=== PATIENT | male | born 1975 | race Caucasian/White ===

== ENCOUNTER 2021-05-18 18:29 | Emergency (ER) | payer OTHER, SELFPAY ==
--- NOTE | ~2021-05-18 | CT_ITS ---
EXAMINATION: CTA chest PE protocol DATE: 05/19/2021 06:36 INDICATION: Dyspnea. TECHNIQUE: Computed tomography angiography (CTA) of the chest was performed with 100 mL Omnipaque-350 intravenous contrast timed to evaluate the pulmonary arteries. Coronal maximum intensity projection 3D-reconstructions were created by the technologist. Automated exposure control and iterative reconst ruction technique were employed. The dose-length product was 816.86 mGy-cm. COMPARISON: None. FINDINGS: There are centrilobular groundglass nodules in right upper lobe. There is mild atelectasis in the lower lobes. No pleural effusion. The heart size is normal. No pericardial effusion. There is no pulmonary embolus. There is a 16 x 15 mm paraesophageal lymph node. There is mild thoracic spondyl osis. IMPRESSION: 1. No pulmonary embolus. 2. Centrilobular groundglass nodules in right lung upper lobe, consistent with pneumonia versus infla mmation. 3. Enlarged paraesophageal lymph node, likely reactive. Reviewed, dictated and finalized at location A. OPERATOR IMPRESSION: 1. No pulmonary embolus. 2. Centrilobular groundglass nodules in right lung upper lobe, consistent with pneumonia versus inflammation. 3. Enlarged paraesophageal lymph node, likely reactive.
--- NOTE | 2021-05-18 18:39 | PC.NURSE ---
Pt to the intake desk and states I have to go put gas in my car, I will be back
[2021-05-18 19:30] VITALS: BP 157/98; PULSE 83; RESP 20; TEMP 36.9; O2SAT 98
--- NOTE | 2021-05-19 04:13 | ECG_ITS ---
Measurements Intervals [place] Rate: 62 P: 50 WV: 135 QRS: 66 QRSD: 110 T: -11 QT: 395 QTc: 402 Interpretive Statements SINUS RHYTHM BORDERLINE ST-T WAVE ABNORMALITY- INFERIOR LEADS BORDERLINE ECG Electronically Signed On 05-19-2021 8:00:15 [employer] by Kyle Mondragon D.O.
[2021-05-19 04:34] LABS: Basophils Percent Auto 0.4 % (0.2-1.2); Eosinophils Absolute Auto 0.2 K/mm3 (0-0.3); Eosinophils Percent Auto 2.9 % (0-4.4); Hematocrit 46.2 % (42.0-52.0); Hemoglobin 15.8 g/dL (14.0-18.0); Immature Granulocyte Absolute 0.02 K/mm3 (0.00-0.031); Immature Granulocyte Percent A 0.2 % (0-0.5); Lymphocytes Absolute Auto 2.83 K/mm3 (0.9-3.2); Lymphocytes Percent Auto 33.7 % (18.3-44.2); Mean Corpuscular HGB Conc 34.2 g/dl (32-36); Mean Corpuscular Hemoglobin 31.1 pg (26-34); Mean Corpuscular Volume 90.9 fl (80-100); Mean Platelet Volume 9.7 fl (7.4-10.4); Monocytes Absolute Auto 0.7 K/mm3 (0.1-0.6); Neutrophils Absolute Auto 4.6 K/mm3 (1.3-6.7); Neutrophils Percent Auto 54.8 % (45.5-73.1); Platelet Count Result 268 k/mm3 (150-375); Red Blood Count 5.08 M/mm3 (4.6-6.20); Red Cell Distribution Width 12.4 % (11.5-14.5); White Blood Count 8.4 K/mm3 (4.5-10.0)
[2021-05-19 04:44] LABS: INR 1.1; Prothrombin Time 13.9 Seconds (11.1-14.7)
[2021-05-19 04:45] LABS: Partial Thromboplastin Time 35.2 SECONDS (22.3-36.8)
[2021-05-19 04:49] LABS: Alanine Aminotransferase 35 U/L (4-50); Albumin Level 4.2 g/dL (3.5-5.1); Alkaline Phosphatase 65 U/L (38-126); Anion Gap 3 mmol/L (8-16); Aspartate Amino Transferase 42 U/L (17-59); Bilirubin,Total 0.6 mg/dL (0.2-1.3); Blood Urea Nitrogen 9 mg/dL (9-20); Calcium 8.5 mg/dL (8.4-10.2); Carbon Dioxide 27 mmol/L (22-30); Chloride 106 mmol/L (98-107); Estimated CRCL calculation 137 ml/min; Estimated Glomerular Filt Rate > 60; Glucose 99 mg/dL (65-110); Magnesium 1.8 mg/dL (1.6-2.3); Sodium 136 mmol/L (137-145)
[2021-05-19 04:59] LABS: NT Pro B Type Natriuretic Pept 24 pg/mL (5-100); Troponin I < 0.012 ng/mL (0.000-0.034)
[2021-05-19] MEDS: ALBUTEROL SULFATE (*SP) INHALER 2 PUFF INHALATION (05:00)
[2021-05-19] MEDS: HYDROcodone/acetaminophen (*CRX) 5-325 MG TABLET 1 TAB PO (05:08)
--- NOTE | 2021-05-19 05:15 | ED.GENADULT ---
HPI - General Adult General Chief complaint: Upper Respiratory Infection Stated complaint: cough, congestion, fatigue Related Data Home Medications Medication Instructions Recorded Confirmed hydrocodone 10 mg-acetaminophen 1 tablet PO Q6H PRN 08/25/20 03/08/21 325 mg tablet rivaroxaban 20 mg tablet 20 mg PO DAILY 08/25/20 03/08/21 Allergies Allergy/AdvReac Type Severity Reaction Status Date / Time No Known Allergies Allergy Verified 03/08/21 13:12 [facility] Social History Social History Social History: vape Smoking status: Former smoker Alcohol intake: never Course Vital Signs Vital signs: Vital Signs Temperature 36.9 C 05/18/21 19:30 Pulse Rate 83 05/18/21 19:30 Respiratory Rate 20 05/18/21 19:30 Blood Pressure 157/98 H 05/18/21 19:30 Pulse Oximetry 98 05/18/21 19:30 Temperature 36.9 C 05/18/21 19:30 Pulse Rate 83 05/18/21 19:30 Respiratory Rate 20 05/18/21 19:30 Blood Pressure 157/98 H 05/18/21 19:30 Pulse Oximetry 98 05/18/21 19:30 Medical Decision Making Vital Signs Vital Signs: Vital Signs Temperature 36.9 C 05/18/21 19:30 Pulse Rate 83 05/18/21 19:30 Respiratory Rate 20 05/18/21 19:30 Blood Pressure 157/98 H 05/18/21 19:30 Pulse Oximetry 98 05/18/21 19:30 Temperature 36.9 C 05/18/21 19:30 Pulse Rate 83 05/18/21 19:30 Respiratory Rate 20 05/18/21 19:30 Blood Pressure 157/98 H 05/18/21 19:30 Pulse Oximetry 98 05/18/21 19:30 Lab Data Result diagrams: 05/19/21 04:28 05/19/21 04:28 Labs: Lab Results 05/19/21 05/19/21 05/19/21 Range/Units 04:28 04:28 04:28 WBC 8.4 (4.5-10.0) K/mm3 RBC 5.08 (4.6-6.20) M/mm3 Hgb 15.8 (14.0-18.0) g/dL Hct 46.2 (42.0-52.0) % MCV 90.9 (80-100) fl MCH 31.1 (26-34) pg MCHC 34.2 (32-36) g/dl RDW 12.4 (11.5-14.5) % Plt Count 268 (150-375) k/mm3 MPV 9.7 (7.4-10.4) fl Immature Gran % (Auto) 0.2 (0-0.5) % Neut % (Auto) 54.8 (45.5-73.1) % Lymph % (Auto) 33.7 (18.3-44.2) % [place] % (Auto) 8.0 (2.6-8.5) % Eos % (Auto) 2.9 (0-4.4) % Baso % (Auto) 0.4 (0.2-1.2) % Lymph # (Auto) 2.83 (0.9-3.2) K/mm3 [place] # (Auto) 0.7 H (0.1-0.6) K/mm3 Eos # (Auto) 0.2 (0-0.3) K/mm3 Baso # (Auto) 0.0 (0.0-0.1) K/mm3 Abs Immat Gran (auto) 0.02 (0.00-0.031) K/mm3 Absolute Neuts (auto) 4.6 (1.3-6.7) K/mm3 Absolute Nucleated RBC 0.0 (0.0-0.012) K/mm3 Nucleated RBC % 0.0 (0.0-0.2) % PT 13.9 (11.1-14.7) Seconds INR 1.1 APTT 35.2 (22.3-36.8) SECONDS Sodium 136 L (137-145) mmol/L Potassium 4.0 (3.4-5.0) mmol/L Chloride 106 (98-107) mmol/L Carbon Dioxide 27 (22-30) mmol/L Anion Gap 3 L (8-16) mmol/L BUN 9 (9-20) mg/dL Creatinine 0.70 (0.7-1.3) mg/dL Estim Creat Clear Calc 137 ml/min Estimated GFR > 60 (59 - ) Glucose 99 (65-110) mg/dL Lactic Acid (0.7-2.1) mmol/L Calcium 8.5 (8.4-10.2) mg/dL Magnesium 1.8 (1.6-2.3) mg/dL Total Bilirubin 0.6 (0.2-1.3) mg/dL AST 42 (17-59) U/L ALT 35 (4-50) U/L Alkaline Phosphatase 65 (38-126) U/L Troponin I < 0.012 (0.000-0.034) ng/mL NT-Pro-B Natriuret Pep 24 (5-100) pg/mL Total Protein 7.0 (6.3-8.2) g/dL Albumin 4.2 (3.5-5.1) g/dL SARS-CoV-2 RNA (RT-PCR) 05/19/21 05/19/21 Range/Units 04:28 04:41 WBC (4.5-10.0) K/mm3 RBC (4.6-6.20) M/mm3 Hgb (14.0-18.0) g/dL Hct (42.0-52.0) % MCV (80-100) fl MCH (26-34) pg MCHC (32-36) g/dl RDW (11.5-14.5) % Plt Count (150-375) k/mm3 MPV (7.4-10.4) fl Immature Gran % (Auto) (0-0.5) % Neut % (Auto) (45.5-73.1) % Lymph % (Auto) (18.3-44.2) % [place] % (Auto) (2.6-8.5) % Eos % (Auto) (0-4.4) % Baso % (Auto) (0.2-1.2) % Lymph # (Auto) (0.9-3.2) K/mm3 Mo
[2021-05-19 05:22] LABS: SARS-CoV-2 RNA PCR Negative
== END 2021-05-19 09:09 | disposition home or self-care (01) ==
PROVIDERS: Emergency Provider Emergency Medicine; PCP Internal Medicine Infectious Disease
DX: J18.9 Pneumonia, unspecified organism (principal); Z20.822 Contact with and (suspected) exposure to COVID-19; Z86.711 Personal history of pulmonary embolism; F17.290 Nicotine dependence, other tobacco product, uncomplicated
CPT/HCPCS: 36415; 71275; 80053; 83605; 83735; 83880; 84484; 85025; 85610; 85730; 93005; 99284; A9270; C9803; Q9967; U0003; U0005

== ENCOUNTER 2021-06-22 15:06 | Outpatient (CLI) | payer OTHER, SELFPAY ==
[2021-06-27 14:16] LABS: Alpha-1-Antitrypsin, QN 141 mg/dL (83-199)
== END 2021-06-22 15:07 | disposition home or self-care (01) ==
LOC: ANHLAB 15:10
PROVIDERS: PCP Internal Medicine Infectious Disease; Visit Provider Internal Medicine Critical Care Medicine
DX: R06.02 Shortness of breath (principal); Z77.120 Contact with and (suspected) exposure to mold (toxic); Z87.891 Personal history of nicotine dependence
CPT/HCPCS: 36415; 82103; 82104; 82785; 86331; 86606; 86609

== ENCOUNTER 2022-08-18 16:23 | Emergency (ER) | payer OTHER, SELFPAY ==
[2022-08-18 16:41] VITALS: BP 155/94; PULSE 88; RESP 18; TEMP 37.1; O2SAT 98
--- NOTE | 2022-08-18 18:00 | ED.EXTPRO ---
HPI - Extremity Problem General Chief complaint: Extremity Problem,Nontraumatic Stated complaint: right thumb pain, left shoulder pain Time Seen by Provider: 08/18/22 17:23 History of Present Illness HPI Narrative: 46-year-old male presented to the ED for evaluation of right thumb pain. Patient suspects he has tendinitis of the right thumb. Patient does report pain was worsened with using his phone. Patient denies any specific incident of injury. Patient denies any swelling or fevers Related Data Home Medications Medication Instructions Recorded Confirmed hydrocodone 10 mg-acetaminophen 1 tablet PO Q6H PRN 08/25/20 09/10/21 325 mg tablet rivaroxaban 20 mg tablet (Xarelto) 20 mg PO DAILY 08/25/20 09/10/21 B-complex with vitamin C 1 tablet PO DAILY 06/22/21 09/10/21 [id number]-3-KPV-sfhxujtj-czrhnvrs-ygxcfog-bromelain-herbal cap PO 06/22/21 09/10/21 1,400 mg capsule desvenlafaxine succinate 100 mg 100 mg PO DAILY 06/22/21 09/10/21 tablet,extended release 24 hr (Pristiq) lisdexamfetamine 60 mg capsule 60 mg PO DAILY 06/22/21 09/10/21 (Vyvanse) testosterone enanthate 50 mg/0.5 50 mg subcut WEEKLY 06/22/21 09/10/21 mL subcutaneous auto-injector clonazepam 1 mg tablet 1 mg PO BID 09/10/21 09/10/21 Allergies Allergy/AdvReac Type Severity Reaction Status Date / Time No Known Allergies Allergy Verified 08/18/22 17:21 Review of Systems Review of Systems: All systems reviewed & are unremarkable except as noted in HPI and below PMFSH Social History Social History Social History: vape Smoking status: Former smoker (quit 7 years ago, vapes instead) Alcohol intake: never Exam Narrative: APPEARANCE: Well appearing, no pain, no distress, well-nourished. HEAD: normocephalic, atraumatic. EYES: PERRLA/EOMI, conjunctivae clear. NOSE: Normal no drainage RESPIRATORY: Airway patent, respirations nonlabored. Clear to auscultation bilaterally, no rales, rhonchi, wheezing. CARDIOVASCULAR: Regular rate and rhythm without murmurs rubs or gallops. ABDOMINAL: Soft, nontender, nondistended, normal bowel sounds MUSCULOSKELETAL: Moves all extremities. Tenderness over right thumb with flexion. No erythema or swelling. NEURO: Alert. Cranial nerves II through XII intact. Grossly intact SKIN: Warm, dry. Normal Color Course Course Emergency Course: 46-year-old male with right thumb pain. Suspect tendinitis of the right thumb. Patient was educated on treatment for home. No concern for tenosynovitis or an infectious process. All questions and concerns were addressed. Patient was comfortable with the plan for symptomatic treatment and close follow-up with his primary care physician. Vital Signs Vital signs: Vital Signs Temperature 98.7 F 08/18/22 16:41 Pulse Rate 88 08/18/22 16:41 Respiratory Rate 18 08/18/22 16:41 Blood Pressure 155/94 H 08/18/22 16:41 Pulse Oximetry 98 08/18/22 16:41 Oxygen Delivery Room Air 08/18/22 16:41 Temperature 98.7 F 08/18/22 16:41 Pulse Rate 80 08/18/22 18:17 Respiratory Rate 16 08/18/22 18:17 Blood Pressure 155/94 H 08/18/22 16:41 Pulse Oximetry 98 08/18/22 18:17 Oxygen Delivery Room Air 08/18/22 16:41 Discharge Plan Discharge Clinical Impression: Tendinitis of thumb Patient Disposition: Home, Self-Care Condition: Stable Instructions: Antibiotic Form, Tendinitis (ED) Additional Instructions: Limit repetitive motion using of the right thumb. Thumb spica splint as needed for comfort. Have close follow-up with your pain management team. If you have any worsening symptoms please call or return to the emergency department. Prescriptions: No Action hydrocodone-acetaminophen 10-325 mg tablet 1 tablet PO Q6H PRN Xarelto 20 mg tablet 20 mg PO DAILY Rx Instructions: must administer with evening meal Vyvanse 60 mg capsule 60 mg PO DAILY desvenlaf
[2022-08-18 18:17] VITALS: PULSE 80; RESP 16; O2SAT 98
== END 2022-08-18 18:18 | disposition home or self-care (01) ==
PROVIDERS: Emergency Provider Emergency Medicine; PCP Internal Medicine Infectious Disease
DX: M77.9 Enthesopathy, unspecified (principal)
CPT/HCPCS: 99281

== ENCOUNTER 2023-11-21 17:18 | Emergency (ER) | payer OTHER, SELFPAY ==
[2023-11-21 17:21] VITALS: BP 136/84; PULSE 98; RESP 18; TEMP 36.6; O2SAT 100
--- NOTE | 2023-11-21 17:23 | ED.GENADULT ---
HPI - General Adult General Chief complaint: Nausea/Vomiting/Diarrhea Stated complaint: N/V/D Time Seen by Provider: 11/21/23 17:23 patient presents with n/v/d that started 1 month ago. patient states he has been having fevers and body aches also. patient states he just doesn't feel good. no other complaints. PE: A&OX3, BS non-labor, ABD pain to center of abdomen with palpation, moving all extremities Related Data Home Medications Medication Instructions Recorded Confirmed hydrocodone 10 mg-acetaminophen 1 tablet PO Q6H PRN 08/25/20 09/10/21 325 mg tablet rivaroxaban 20 mg tablet (Xarelto) 20 mg PO DAILY 08/25/20 09/10/21 B-complex with vitamin C 1 tablet PO DAILY 06/22/21 09/10/21 [id number]-9-RTG-faesdbup-stgoynjp-xzrcfkn-bromelain-herbal cap PO 06/22/21 09/10/21 1,400 mg capsule desvenlafaxine succinate 100 mg 100 mg PO DAILY 06/22/21 09/10/21 tablet,extended release 24 hr (Pristiq) lisdexamfetamine 60 mg capsule 60 mg PO DAILY 06/22/21 09/10/21 (Vyvanse) testosterone enanthate 50 mg/0.5 50 mg subcut WEEKLY 06/22/21 09/10/21 mL subcutaneous auto-injector clonazepam 1 mg tablet 1 mg PO BID 09/10/21 09/10/21 semaglutide (weight loss) 0.25 0.25 mg subcut WEEKLY 10/14/23 mg/0.5 mL subcutaneous pen injector (Wegovy) Allergies Allergy/AdvReac Type Severity Reaction Status Date / Time No Known Allergies Allergy Verified 11/21/23 17:28 [facility] Social History Social History Social History: vape Smoking status: Former smoker (quit 7 years ago, vapes instead) Alcohol intake: never Course Vital Signs Vital signs: Vital Signs Temperature 36.6 C 11/21/23 17:21 Pulse Rate 98 11/21/23 17:21 Respiratory Rate 18 11/21/23 17:21 Blood Pressure 136/84 11/21/23 17:21 Pulse Oximetry 100 11/21/23 17:21 Oxygen Delivery Room Air 11/21/23 17:21 Temperature 36.6 C 11/21/23 17:21 Pulse Rate 98 11/21/23 17:21 Respiratory Rate 18 11/21/23 17:21 Blood Pressure 136/84 11/21/23 17:21 Pulse Oximetry 100 11/21/23 17:21 Oxygen Delivery Room Air 11/21/23 17:21 Medical Decision Making Vital Signs Vital Signs: Vital Signs Temperature 36.6 C 11/21/23 17:21 Pulse Rate 98 11/21/23 17:21 Respiratory Rate 18 11/21/23 17:21 Blood Pressure 136/84 11/21/23 17:21 Pulse Oximetry 100 11/21/23 17:21 Oxygen Delivery Room Air 11/21/23 17:21 Temperature 36.6 C 11/21/23 17:21 Pulse Rate 98 11/21/23 17:21 Respiratory Rate 18 11/21/23 17:21 Blood Pressure 136/84 11/21/23 17:21 Pulse Oximetry 100 11/21/23 17:21 Oxygen Delivery Room Air 11/21/23 17:21 Lab Data 11/21/23 17:29 11/21/23 17:29 Labs: Lab Results 11/21/23 11/21/23 11/21/23 Range/Units 17:29 17:39 17:47 WBC 7.3 (4.5-10.0) K/mm3 RBC 5.03 (4.6-6.20) M/mm3 Hgb 14.9 (14.0-18.0) g/dL Hct 44.0 (42.0-52.0) % MCV 87.5 (80-100) fl MCH 29.6 (26-34) pg MCHC 33.9 (32-36) g/dl RDW 12.4 (11.5-14.5) % Plt Count 244 (150-375) k/mm3 MPV 9.6 (7.4-10.4) fl Immature Gran % (Auto) 0.1 (0-0.5) % Neut % (Auto) 52.6 (45.5-73.1) % Lymph % (Auto) 36.2 (18.3-44.2) % [place] % (Auto) 8.6 H (2.6-8.5) % Eos % (Auto) 2.1 (0-4.4) % Baso % (Auto) 0.4 (0.2-1.2) % Lymph # (Auto) 2.64 (0.9-3.2) K/mm3 [place] # (Auto) 0.6 (0.1-0.6) K/mm3 Eos # (Auto) 0.2 (0-0.3) K/mm3 Baso # (Auto) 0.0 (0.0-0.1) K/mm3 Abs Immat Gran (auto) 0.01 (0.00-0.031) K/mm3 Absolute Neuts (auto) 3.8 (1.3-6.7) K/mm3 Absolute Nucleated RBC 0.000 (0.0-0.012) K/mm3 Nucleated RBC % 0.0 (0.0-0.2) % Sodium 138 (137-145) mmol/L Potassium 4.0 (3.4-5.0) mmol/L Chloride 98 (98-107) mmol/L Carbon Dioxide 30 (22-30) mmol/L Anion Gap 10 (4-12) mmol/L BUN 14 D (9-20) mg/dL Creatinine 0.90 (0.7-1.3) mg
[2023-11-21 17:41] LABS: Basophils Percent Auto 0.4 % (0.2-1.2); Eosinophils Absolute Auto 0.2 K/mm3 (0-0.3); Eosinophils Percent Auto 2.1 % (0-4.4); Hemoglobin 14.9 g/dL (14.0-18.0); Immature Granulocyte Absolute 0.01 K/mm3 (0.00-0.031); Immature Granulocyte Percent A 0.1 % (0-0.5); Lymphocytes Absolute Auto 2.64 K/mm3 (0.9-3.2); Lymphocytes Percent Auto 36.2 % (18.3-44.2); Mean Corpuscular HGB Conc 33.9 g/dl (32-36); Mean Corpuscular Hemoglobin 29.6 pg (26-34); Mean Corpuscular Volume 87.5 fl (80-100); Mean Platelet Volume 9.6 fl (7.4-10.4); Monocytes Absolute Auto 0.6 K/mm3 (0.1-0.6); Monocytes Percent Auto 8.6 % (2.6-8.5); Neutrophils Absolute Auto 3.8 K/mm3 (1.3-6.7); Neutrophils Percent Auto 52.6 % (45.5-73.1); Platelet Count Result 244 k/mm3 (150-375); Red Blood Count 5.03 M/mm3 (4.6-6.20); Red Cell Distribution Width 12.4 % (11.5-14.5); White Blood Count 7.3 K/mm3 (4.5-10.0)
[2023-11-21 17:59] LABS: Add Urine Microscopic? NO; Appearance Urine Clear (Clear); Bilirubin Urine Negative (Negative); Blood Urine Negative (Negative); Color Urine Yellow (Yellow); Glucose Urine UA Negative (Negative); Ketones Urine Negative (Negative); Leukocyte Esterase Ur Negative LEU/UL (Negative); Nitrate Urine Negative (Negative); Protein Urine Negative (Negative); Specific Grav Ur 1.013 (1.001-1.035); Urobilinogen Urine 0.2 mg/dL (<2.0)
[2023-11-21 18:00] LABS: Lactic Acid Reflex 0.8 mmol/L (0.7-2.0)
[2023-11-21 18:01] LABS: Alanine Aminotransferase 24 U/L (6-50); Albumin Level 4.6 g/dL (3.5-5.1); Alkaline Phosphatase 69 U/L (38-126); Anion Gap 10 mmol/L (4-12); Aspartate Amino Transferase 36 U/L (17-59); Bilirubin,Total 0.7 mg/dL (0.2-1.3); Blood Urea Nitrogen 14 mg/dL (9-20); Calcium 9.3 mg/dL (8.4-10.2); Carbon Dioxide 30 mmol/L (22-30); Chloride 98 mmol/L (98-107); Estimated CRCL calculation 100 ml/min; Estimated Glomerular Filt Rate > 60; Glucose 102 mg/dL (65-110); Lipase 410 U/L (23-300); Sodium 138 mmol/L (137-145)
[2023-11-21 18:23] LABS: Influenza A QL RT-PCR Negative (Negative); Influenza B QL RT-PCR Negative (Negative); SARS-CoV-2 RNA PCR Negative (Negative)
== END 2023-11-21 17:52 | disposition left against medical advice (07) ==
PROVIDERS: Emergency Provider Nurse Practitioner Family; PCP Internal Medicine Infectious Disease
DX: R11.2 Nausea with vomiting, unspecified (principal); Z20.822 Contact with and (suspected) exposure to COVID-19; F17.290 Nicotine dependence, other tobacco product, uncomplicated
CPT/HCPCS: 36415; 80053; 81003; 83605; 83690; 85025; 87636; 99283

== ENCOUNTER 2023-11-22 15:23 | Emergency (ER) | payer OTHER, SELFPAY ==
[2023-11-22 15:24] VITALS: BP 131/84; PULSE 86; RESP 16; TEMP 36.8; O2SAT 100
[2023-11-22 16:04] LABS: Basophils Percent Auto 0.5 % (0.2-1.2); Eosinophils Absolute Auto 0.2 K/mm3 (0-0.3); Eosinophils Percent Auto 2.4 % (0-4.4); Hematocrit 45.3 % (42.0-52.0); Hemoglobin 15.7 g/dL (14.0-18.0); Immature Granulocyte Absolute 0.01 K/mm3 (0.00-0.031); Immature Granulocyte Percent A 0.2 % (0-0.5); Lymphocytes Absolute Auto 1.82 K/mm3 (0.9-3.2); Lymphocytes Percent Auto 29.4 % (18.3-44.2); Mean Corpuscular HGB Conc 34.7 g/dl (32-36); Mean Corpuscular Hemoglobin 30.2 pg (26-34); Mean Corpuscular Volume 87.1 fl (80-100); Mean Platelet Volume 9.8 fl (7.4-10.4); Monocytes Absolute Auto 0.5 K/mm3 (0.1-0.6); Monocytes Percent Auto 7.6 % (2.6-8.5); Neutrophils Absolute Auto 3.7 K/mm3 (1.3-6.7); Neutrophils Percent Auto 59.9 % (45.5-73.1); Platelet Count Result 251 k/mm3 (150-375); Red Cell Distribution Width 12.4 % (11.5-14.5); White Blood Count 6.2 K/mm3 (4.5-10.0)
[2023-11-22 16:22] LABS: Alanine Aminotransferase 24 U/L (6-50); Albumin Level 4.8 g/dL (3.5-5.1); Alkaline Phosphatase 68 U/L (38-126); Anion Gap 9 mmol/L (4-12); Aspartate Amino Transferase 30 U/L (17-59); Bilirubin,Total 0.6 mg/dL (0.2-1.3); Blood Urea Nitrogen 13 mg/dL (9-20); Calcium 9.3 mg/dL (8.4-10.2); Carbon Dioxide 30 mmol/L (22-30); Chloride 101 mmol/L (98-107); Estimated CRCL calculation 112 ml/min; Estimated Glomerular Filt Rate > 60; Glucose 95 mg/dL (65-110); Lipase 142 U/L (23-300); Potassium 4.5 mmol/L (3.4-5.0); Sodium 140 mmol/L (137-145)
--- NOTE | 2023-11-22 17:07 | ED.ABDPAIN ---
HPI - Abdominal Pain General Chief Complaint: Abdominal Pain Stated Complaint: abd pain Time Seen by Provider: 11/22/23 16:28 History of Present Illness HPI narrative: Patient is a 48-year-old male presenting with abdominal pain. Patient states that he has been having diffuse abdominal pain for about the last month. Associated with nausea and intermittent vomiting. States that he has intermittent constipation and diarrhea. States that he is currently on his 3rd month of wegovy and he is concerned that it is related to this. He also has body aches and muscle cramps in his legs at night. No chest pain or shortness of breath. No fevers or chills. No dysuria hematuria. Related Data Home Medications Medication Instructions Recorded Confirmed hydrocodone 10 mg-acetaminophen 1 tablet PO Q6H PRN 08/25/20 09/10/21 325 mg tablet rivaroxaban 20 mg tablet (Xarelto) 20 mg PO DAILY 08/25/20 09/10/21 B-complex with vitamin C 1 tablet PO DAILY 06/22/21 09/10/21 [id number]-SLX-plbqmoke-wnbuxqqx-pjimlrk-bromelain-herbal cap PO 06/22/21 09/10/21 1,400 mg capsule desvenlafaxine succinate 100 mg 100 mg PO DAILY 06/22/21 09/10/21 tablet,extended release 24 hr (Pristiq) lisdexamfetamine 60 mg capsule 60 mg PO DAILY 06/22/21 09/10/21 (Vyvanse) testosterone enanthate 50 mg/0.5 50 mg subcut WEEKLY 06/22/21 09/10/21 mL subcutaneous auto-injector clonazepam 1 mg tablet 1 mg PO BID 09/10/21 09/10/21 semaglutide (weight loss) 0.25 0.25 mg subcut WEEKLY 10/14/23 mg/0.5 mL subcutaneous pen injector (Wegovy) Allergies Allergy/AdvReac Type Severity Reaction Status Date / Time No Known Allergies Allergy Verified 11/21/23 17:28 Review of Systems Review of Systems: All systems reviewed & are unremarkable except as noted in HPI and below PMFSH Social History Social History Social History: vape Smoking status: Former smoker (quit 7 years ago, vapes instead) Alcohol intake: never Exam Narrative: GENERAL: Well-appearing, in no acute distress, pleasant cooperative HEAD: Normocephalic, atraumatic. EYES: PERRLA and EOMI. ENT: Mucous membranes moist. NECK: Supple. CHEST: Clear to auscultation. No respiratory distress. HEART: Regular rate and rhythm ABDOMEN: Soft, nontender, nondistended EXTREMITIES: Normal range of motion. SKIN: Warm, dry, no rash. NEURO: No focal deficits. Alert and oriented x3. PSYCH: Normal mood and affect. Course Vital Signs Vital signs: Vital Signs Temperature 98.3 F 11/22/23 15:24 Pulse Rate 86 11/22/23 15:24 Respiratory Rate 16 11/22/23 15:24 Blood Pressure 131/84 11/22/23 15:24 Pulse Oximetry 100 11/22/23 15:24 Oxygen Delivery Room Air 11/22/23 15:24 Temperature 97.8 F 11/22/23 19:13 Pulse Rate 86 11/22/23 19:13 Respiratory Rate 16 11/22/23 19:13 Blood Pressure 120/76 11/22/23 19:13 Pulse Oximetry 98 11/22/23 19:13 Oxygen Delivery Room Air 11/22/23 15:24 MDM - Abdominal Pain MDM Narrative Medical decision making narrative: 48-year-old male presenting with intermittent abdominal pain, nausea, vomiting, diarrhea, constipation for the last month in the setting of wegovy use. Vitals within normal limits. Exam remarkable for the above. Abdomen is soft and benign. Do not feel imaging is warranted at this time. Blood work is unremarkable. Normal lipase. Patient with improvement in his nausea following IV Zofran and fluids. I am concerned that the symptoms are related to his wegovy use. Advised that he follow-up closely with the prescribing provider. Will send in for some Zofran for him. Appropriate return precautions given. Patient is agreeable this plan. Discharged in stable condition. Differential Diagnosis Differential diagnosis: Likely other (Diffuse abdominal pain, nausea vomiting, diarrhea, constipation) Medical Records Attestation: I reviewed the patient's medical
[2023-11-22] MEDS: SODIUM CHLORIDE 0.9% IV 1,000 ML 999 ML IV CONT (17:17)
[2023-11-22] MEDS: ONDANSETRON INJ 4 MG/2 ML VIAL IV PUSH (17:17)
[2023-11-22] MEDS: KETOROLAC 15 MG/ML VIAL (*BKC) IV PUSH (17:17)
[2023-11-22 17:42] LABS: Creatine Kinase 160 U/L (55-170); Magnesium 1.9 mg/dL (1.6-2.3)
[2023-11-22 19:13] VITALS: BP 120/76; PULSE 86; RESP 16; TEMP 36.6; O2SAT 98
== END 2023-11-22 19:14 | disposition home or self-care (01) ==
PROVIDERS: Emergency Medicine; Emergency Provider Emergency Medicine
DX: R10.84 Generalized abdominal pain (principal); R11.2 Nausea with vomiting, unspecified; F17.290 Nicotine dependence, other tobacco product, uncomplicated; Z79.01 Long term (current) use of anticoagulants; Z79.85 Long-term (current) use of injectable non-insulin antidiabetic drugs; Z79.899 Other long term (current) drug therapy
CPT/HCPCS: 36415; 80053; 82550; 83690; 83735; 85025; 96361; 96374; 96375; 99284; J1885; J2405; J7030

== ENCOUNTER 2024-05-19 20:25 | Emergency (ER) | payer OTHER, SELFPAY ==
--- OUTSIDE RECORDS SUMMARY | 2024-05-19 20:27 | XMS_ITS | Data Portability ---
Author Organization [facility] [address], Main Office Address [address] [place] [address] Assessment No assessment recorded. Plan of Treatment Reminders Order Date Submit Date Provider Last Modified By Organization Details Last Modified Time Details Appointments None recorded . Lab urinalys is, dipstick 2022 023 [email or web address] [facility] [place], [address] [place] [address], [address], [place], [address], 3 11:22:15 CBC 2022 023 [facility] (Lab), [address] [place], [address], 3 14:17:43 CMP, serum or plasma 2022 023 [facility] (Lab), [address] [place], [address], 3 14:17:43 PSA, total, serum or plasma 2022 023 [email or web address] [facility] (Lab), [address] [place], [address], 4 12:41:31 testoste matthew, free + total, serum 2022 023 [facility] (Lab), [address] [place], [address], 3 13:23:36 estradio l, serum 2022 023 [facility] (Lab), [address] [place] [address], [place], [address], 13:23:37 Referral None recorded . Procedures None recorded . Surgeries None recorded . Imaging US, bladder 2022 023 [email or web address] [facility], [address] [place] [address], [address], 11:25:38 Medication Orders None recorded . Patient TargetsNo targets recorded. Patient InstructionsNo instructions recorded. Reason for Referral None Reported. Results Created Date Observation Date Name Description Value Unit Range Abnormal Flag Note LastModifiedBy Organization Detail LastModifiedTime 03/08/2003/08/2021 urina lysis , dipst ick Leukocytes (reference range: negative sesar/? ? ?l) Negati ve Not Available [address], [address], 03/08/2021 11:19:45 03/08/2003/08/2021 urina lysis , dipst ick Nitrite (reference rage: negative mg/dl) negati ve Not Available [address], [address], 03/08/2021 11:19:45 03/08/2003/08/2021 urina lysis , dipst ick Urobilinogen (reference range: 0.2-1 mg/dl) 0.2 Not Available [address], [address], 03/08/2021 11:19:45 03/08/20 21 03/08/2021 urina lysis , dipst ick Protein (reference range: negative mg/dl) Negati ve Not Available [address], [address], 03/08/2021 11:19:45 03/08/20 21 03/08/2021 urina lysis , dipst ick pH (reference range: 5-7) 6.0 Not Available [address], [address], 03/08/2021 11:19:45 03/08/2003/08/2021 urina lysis , dipst ick Blood (reference range: negative Robin/? ? ?l) Small Not Available [address], [address], 03/08/2021 11:19:45 03/08/20 21 03/08/2021 urina lysis , dipst ick Specific [place] (reference range: 1.005-1.030) 1.025 Not Available [address], [address], 03/08/2021 11:19:45 03/08/20 21 03/08/2021 urina lysis , dipst ick Ketone (reference range: negative mg/dl) Negati ve Not Available [address], [address], 03/08/2021 11:19:45 03/08/20 21 03/08/2021 urina lysis , dipst ick Bilirubin (reference range: negative mg/dl) Small Not Available [address], [address], 03/08/2021 11:19:45 03/08/20 21 03/08/2021 urina lysis , dipst ick Glucose (reference range: negative mg/dl) Negati ve Not Available [address], [address], [address], 03/08/2021 11:19:45 03/08/20 21 03/08/2021 urina lysis , dipst ick Appearance Clear Not Available [address], [address], 03/08/2021 11:19:45 03/08/20 21 03/08/2021 urina lysis , dipst ick Color Yellow Not Available [address], [address], 03/08/2021 11:19:45 03/29/20 21 03/29/2021 urina lysis , dipst ick Leukocytes (reference range: negative sesar/? ? ?l) Negati ve Not Available [address] [address], [place], [address], 03/29/2021 10:47:02 03/29/20 21 03/29/2021 urina lysis , dipst ick Nitrite (reference rage: negative mg/dl) negati ve Not Available [address], [address], 03/29/2021 10:47:02 03/29/20 21 03/29/2021 urina lysis , dipst ick Urobilinogen (reference range: 0.2-1 mg/dl) 0.2 Not Available [address], [address], [place], [address], 03/29/2021 10:47:02 03/29/20 21 03/29/2021 urina lysis , dipst ick Protein (reference range: negative mg/dl) Negati ve Not Available Z[address], [address], 03/29/2021 10:47:02 03/29/2003/29/2021 urina lysis , dipst ick pH (reference range: 5-7) 5.5 Not Available Z_[address], [address], 03/29/2021 10:47:02 03/29/20 21 03/29/2021 urina lysis , dipst ick Blood (reference range: negative Robin/? ? ?l) Small Not Available Z[address], [address], 03/29/2021 10:47:02 03/29/20 21 03/29/2021 urina lysis , dipst ick Specific [place] (reference range: 1.005-1.030) 1.020 Not Available [address] [address], [place], [address], 03/29/2021 10:47:02 03/29/20 21 03/29/2021 urina lysis , dipst ick Ketone (reference range: negative mg/dl) Negati ve Not Available Z[address], [address], 03/29/2021 10:47:02 03/29/20 21 03/29/2021 urina lysis , dipst ick Bilirubin (reference range: negative mg/dl) Small Not Available [address], [address], 03/29/2021 10:47:02 03/29/20 21 03/29/2021 urina lysis , dipst ick Glucose (reference range: negative mg/dl) Negati ve Not Available [address], [address], 03/29/2021 10:47:02 03/29/20 21 03/29/2021 urina lysis , dipst ick Appearance Clear Not Available [address], [address], 03/29/2021 10:47:02 11/29/19 23 11/28/2022 urina lysis , dipst ick Leukocytes (reference range: negative sesar/? ? ?l) Negati ve Not Available [address], [address], 11/28/2022 11:07:19 11/29/19 23 11/28/2022 urina lysis , dipst ick Nitrite (reference rage: negative mg/dl) negati ve Not Available [address], [address], 11/28/2022 11:07:19 11/29/19 23 11/28/2022 urina lysis , dipst ick Urobilinogen (reference range: 0.2-1 mg/dl) 0.2 Not Available [address], [address], 11/28/2022 11:07:19 11/29/19 23 11/28/2022 urina lysis , dipst ick Protein (reference range: negative mg/dl) Negati ve Not Available [address] [address], [place], [address], 11/28/2022 11:07:19 11/29/19 23 11/28/2022 urina lysis , dipst ick pH (reference range: 5-7) 5.5 Not Available [address], [address], 11/28/2022 11:07:19 11/29/19 23 11/28/2022 urina lysis , dipst ick Blood (reference range: negative Robin/? ? ?l) Negati ve Not Available [address] [address], [place], [address], 11/28/2022 11:07:19 11/29/19 23 11/28/2022 urina lysis , dipst ick Specific [place] (reference range: 1.005-1.030) 1.025 Not Available [address] [address], [place], [address], 11/28/2022 11:07:19 11/29/19 23 11/28/2022 urina lysis , dipst ick Ketone (reference range: negative mg/dl) Negati ve Not Available [address], [address], 11/28/2022 11:07:19 11/29/19 23 11/28/2022 urina lysis , dipst ick Bilirubin (reference range: negative mg/dl) Negati ve Not Available [address] [address], [place], [address], 11/28/2022 11:07:19 11/29/19 23 11/28/2022 urina lysis , dipst ick Glucose (reference range: negative mg/dl) Negati ve Not Available [address], [address], 11/28/2022 11:07:19 11/29/19 23 11/28/2022 urina lysis , dipst ick Appearance Clear Not Available [address] [address], [place], [address], 11/28/2022 11:07:19 11/29/19 23 11/28/2022 urina lysis , dipst ick Color Yellow Not Available [address], [address], 11/28/2022 11:07:19 01/09/20 21 01/03/2021 sleep study , basel ine diagn ostic polys omnog leigh* No observ ation record ed. [id number] Not Available 06/19/2022 19:12:38 03/08/20 21 03/08/2021 US, bladd er No observ ation record ed. [id number], [address], 06/19/2022 19:12:38 11/29/19 23 11/28/2022 US, bladd er No observ ation record ed. [email or web address] [address], [address], 11/29/2022 14:57:39 Result Notes None recorded. Problems Name Problem SNOMED Code Status Onset Date Resolution Date Notes Provider Name and Address Organization Details Recorded Time Venous thrombosis 484790597 Active Not Available [facility] 3 19:12:04 Testicular hypofuncti on 507441130 Active Not Available [facility] 3 19:12:04 Chest pain 08985754 Active Not Available [facility] 3 19:12:04 Current tear of medial cartilage AND/OR meniscus of knee Active Not Available [facility] 3 19:12:04 Hypertensi ve disorder 26238413 Completed Not Available [facility] 3 19:12:04 Osteoarthr itis 674952121 Active Not Available [facility] 3 19:12:04 Viral hepatitis C 28902516 Active Not Available [facility] 3 19:12:04 Hyperlipid emia 30289918 Active Not Available [facility] 3 19:12:04 Essential hypertensi on 69133025 Active Not Available [facility] 3 19:12:04 Sexually transmitte d infectious disease 0349342 Active Not Available [facility] 3 19:12:04 Pain in limb 37587968 Active Not Available [facility] 3 19:12:04 Male hypogonadi sm 31839945 Active 2022 Liv clarke, [place] [employer] [facility] 3 11:19:07 Notes:Medical History: Subst ance use Bipolar depression/Anxiety/ADHD Migraine headaches Rhinitis Bruxism Obesity with mild OSAHS, AHI = 1, 01/03/21 Hypertension Hyperlipidemia Hepatitis C Hypogonadism PLMD 2 PE/ 5 DVT on Xarelto Osteoarthritis Procedure History: Bilateral Lasik eye surgery 2019 Problem Notes None recorded. Procedures Surgical History None recorded. Imaging Results Imaging Date Name Status LastModified by Organiz ation Details LastModified Time 01/03/2021 sleep study, baseline diagnostic polysomnogram* completed [id number] Information not available 06/19/2022 19:12:38 03/08/2021 US, bladder completed [id number] [facility] [place] [place] [facility] [address] [facility], [address], [place], [address], 06/19/2022 19:12:38 11/28/2022 US, bladder completed [email or web address] [facility] U[facility] [address], [address], [place], [address], 11/29/2022 14:57:39 Procedure Notes None recorded. Medical Equipment None Reported. Allergies No known drug allergies Medications Name Sig Start Date Stop Date Status Note LastModified by Organization Details LastModified Time cyclobenzap rine 10 mg tablet TAKE 1 TABLET BY MOUTH TWICE DAILY NEEDED 11/28 completed Not Available Not Available Not Available ziprasidone 80 mg capsule TK ONE C PO QHS WF 03/08 completed Not Available Not Available Not Available amoxicillin 500 mg capsule TK 1 C PO TID UNTIL GONE 11/28 completed Not Available Not Available Not Available methocarbam ol 500 mg tablet TK 1 T PO Q 6 H PRN P CONTROL 03/08 completed Not Available Not Available Not Available lamotrigine 150 mg tablet 03/08 completed Not Available Not Available Not Available bupropion HCl SR 150 mg tablet,12 hr sustained-r elease 03/08 completed Not Available Not Available Not Available cefuroxime axetil 250 mg tablet TK 1 T PO BID 11/28 completed Not Available Not Available Not Available clindamycin HCl 300 mg capsule 11/28 completed Not Available Not Available Not Available trazodone 50 mg tablet TK 1 TO 2 TS PO HS 03/08 completed Not Available Not Available Not Available azithromyci n 250 mg tablet 11/28 completed Not Available Not Available Not Available valacyclovi r 1 gram tablet TAKE 1 TABLET BY MOUTH EVERY DAY DIRECTED 12/18 completed Not Available Not Available Not Available sumatriptan 100 mg tablet TK 1 T PO QD PRN 03/08 completed Not Available Not Available Not Available hydrocodone 5 mg-acetamin ophen 325 mg tablet TAKE 1 TABLET BY MOUTH EVERY 6 HOURS NEEDED FOR PAIN 03/08 completed Not Available Not Available Not Available warfarin 10 mg tablet TK 1 T PO QD 11/28 completed Not Available Not Available Not Available prazosin 1 mg capsule TAKE 1-2 CAPSULES BY MOUTH AT BEDTIME DIRECTED 11/28 completed Not Available Not Available Not Available sumatriptan 25 mg tablet 11/28 completed Not Available Not Available Not Available ondansetron HCl 4 mg tablet TAKE 1 TABLET BY MOUTH EVERY 12 HOURS 11/28 completed Not Available Not Available Not Available clonazepam 0.5 mg tablet TK 1 T PO BID PRN 03/08 completed Not Available Not Available Not Available clonazepam 1 mg tablet TAKE 1 TABLET BY MOUTH TWICE A DAY NEEDED 11/28 completed Not Available Not Available Not Available metronidazo le 500 mg tablet TK 2 TS PO Q 12 H UTD FOR 1 DAY active Not Available Not Available No t Available acetaminoph en 300 mg-codeine 30 mg tablet 03/08 completed Not Available Not Available Not Available ciprofloxac in 500 mg tablet Take 1 tablet by oral route. 11/28 completed Not Available Not Available Not Available hydrocodone 10 mg-acetamin ophen 325 mg tablet TAKE 1 TABLET BY MOUTH 4 TIMES DAILY NEEDED 11/28 completed Not Available Not Available Not Available peg-electro lyte solution 420 gram oral solution DRINK 1/2 OF PREP AT 5PM ON 09/19 AND THE OTHER 1/2 AT 5AM ON 09/20 completed Not Available Not Available Not Available tramadol 50 mg tablet TK 1 T PO Q 8 HOURS PRN 03/08 completed Not Available Not Available Not Available triamcinolo ne acetonide 0.1 % topical cream ALE THIN LAYER EXT AA BID 11/28 completed Not Available Not Available Not Available butalbital- acetaminoph en-caffeine 50 mg-325 mg-40 mg tablet TK 1 T PO Q 4 H PRN 03/08 completed Not Available Not Available Not Available lamotrigine 25 mg tablet TAKE 2 TABLETS BY MOUTH EVERY DAY FOR 30 DAYS 11/28 completed Not Available Not Available Not Available ketorolac 10 mg tablet TK 1 T PO Q 6 H PRN 11/28 completed Not Available Not Available Not Available alprazolam 0.5 mg tablet TAKE 1 TABLET BY MOUTH THREE TIMES A DAY NEEDED, MUST LAST 30 DAYS (FILL 7/28) 12/18 completed Not Available Not Available Not Available ofloxacin 0.3 % ear drops INSTILL 10 GTS INTO RIGHT EAR BID FOR 10 DAYS 11/28 completed Not Available Not Available Not Available amoxicillin 875 mg tablet TK 1 T PO Q 12 H TAT. 11/28 completed Not Available Not Available Not Available methocarbam ol 750 mg tablet TK 1 T PO Q 6 H 11/28 completed Not Available Not Available Not Available tamsulosin 0.4 mg capsule 11/28 completed Not Available Not Available Not Available dicyclomine 20 mg tablet TAKE 1 TABLET BY MOUTH 3 TIMES DAILY NEEDED FOR ABDOMINAL DISCOMFOR T 11/28 completed Not Available Not Available Not Available amlodipine 10 mg tablet TAKE 1 TABLET BY MOUTH EVERY DAY active Not Available Not Available No t Available benzonatate 100 mg capsule TAKE 1 CAPSULE BY MOUTH THREE TIMES A DAY NEEDED FOR 7 DAYS 11/28 completed Not Available Not Available Not Available doxycycline monohydrate 100 mg capsule TAKE 1 CAPSULE BY MOUTH TWICE A DAY FOR 7 DAYS 11/28 completed Not Available Not Available Not Available pantoprazol e 40 mg tablet,idalmis yed release TAKE 1 TABLET BY MOUTH EVERY DAY DIRECTED 12/18 completed Not Available Not Available Not Available neomycin-po lymyxin-dex ameth 3.5 mg/mL-10,00 0 unit/mL-0.1 % eye drops 11/28 completed Not Available Not Available Not Available triamcinolo ne acetonide 0.1 % topical ointment APPLY THIN LAYER TOPICALLY TO AFFECTED AREA 2-3 TIMES A DAY FOR ITCHING 11/28 completed Not Available Not Available Not Available buspirone 10 mg tablet TK 1 T PO BID UTD 03/08 completed Not Available Not Available Not Available lidocaine 5 % topical patch USE 1 TO 2 PATCHES EXTERNALL Y ONCE DAILY NEEDED 12/18 completed Not Available Not Available Not Available guanfacine 1 mg tablet TK 1 T PO QD HS 03/08 completed Not Available Not Available Not Available Risperdal 0.5 mg tablet Take 1 tablet twice a day by oral route. 03/08 completed Not Available Not Available Not Available bisacodyl 5 mg tablet,idalmis yed release TAKE 6 TABLETS BY MOUTH AT 8AM ON 09/19 completed Not Available Not Available Not Available ziprasidone 40 mg capsule TK ONE C PO QD WF 03/08 completed Not Available Not Available Not Available warfarin 1 mg tablet TK 1 T PO QD 11/28 completed Not Available Not Available Not Available testosteron e cypionate 200 mg/mL intramuscul ar oil INJECT 0.5 ML INTO THE MUSCLE ONCE WEEKLY *DISCARD VIAL AFTER 1 USE* 11/28 completed Not Available Not Available Not Available ibuprofen 600 mg tablet 11/28 completed Not Available Not Available Not Available levofloxaci n 500 mg tablet TK 1 T PO QD 11/28 completed Not Available Not Available Not Available zolpidem 10 mg tablet TK 1 T PO HS PRN FOR INSOMNIA 03/08 completed Not Available Not Available Not Available methylpredn isolone 4 mg tablets in a dose pack TAKE 6 TABLETS ON DAY 1 DIRECTED ON PACKAGE AND DECREASE BY 1 TAB EACH DAY FOR A TOTAL OF 6 DAYS 11/28 completed Not Available Not Available Not Available BD Luer-Vikki Syringe 3 mL 21 gauge x 1 1/2 USE TO INJECT TESTOSTER ONE INTO THE MUSCLE ONCE WEEKLY 11/28 completed Not Available Not Available Not Available ondansetron 4 mg disintegrat ing tablet TAKE 1 TABLET BY MOUTH EVERY 8 HOURS NEEDED FOR NAUSEA AND VOMITING 11/28 completed Not Available Not Available Not Available fluticasone propionate 50 mcg/actuati on nasal spray,suspe nsion SPRAY TWICE IN EACH NOSTRIL QD 03/08 completed Not Available Not Available Not Available lamotrigine 100 mg tablet TAKE 1 TABLET BY MOUTH EVERY DAY FOR 30 DAYS 11/28 completed Not Available Not Available Not Available Clomid 50 mg tablet TAKE 1 TABLET BY MOUTH IN THE MORNING 11/28 completed Not Available Not Available Not Available loratadine 10 mg tablet TK 1 T PO QD 03/08 completed Not Available Not Available Not Available naproxen 500 mg tablet TK 1 T PO BID PRN P 11/28 completed Not Available Not Available Not Available amoxicillin 875 mg-potassiu m clavulanate 125 mg tablet TK 1 T PO Q 12 H FOR 10 DAYS 11/28 completed Not Available Not Available Not Available Ventolin HFA 90 mcg/actuati on aerosol inhaler USE 2 PUFFS PO Q 6 H PRN. 03/08 completed Not Available Not Available Not Available hydroxyzine pamoate 25 mg capsule TK ONE C PO QID PRA 03/08 completed Not Available Not Available Not Available Duac 1.2 % (1 % base)-5 % topical gel APPLY TO THE AFFECTED AREA(S) BY TOPICAL ROUTE 2 TIMES PER DAY IN THEMORNIN G AND EVENING 11/28 completed Not Available Not Available Not Available tadalafil 5 mg tablet TAKE 1 TABLET BY MOUTH EVERY DAY 11/28 completed Not Available Not Available Not Available topiramate 50 mg tablet TK 1 T PO BID 03/08 completed Not Available Not Available Not Available BD Integra Syringe 3 mL 25 gauge x 5/8 U UTD 11/28 completed Not Available Not Available Not Available solifenacin 10 mg tablet TAKE 1 TABLET BY MOUTH DAILY IN THE MORNING *SWALLOW WHOLE DO NOT CRUSH,LEILA W OR SPLIT* 11/28 completed Not Available Not Available Not Available testosteron e 200 mcg monthly 11/28 completed Not Available Not Available Not Available hydrochloro thiazide 12.5 mg tablet TAKE 1 TABLET BY MOUTH EVERY DAY AROUND THE CLOCK 11/28 completed Not Available Not Available Not Available Vyvanse 60 mg capsule TAKE 1 CAPSULE BY MOUTH EVERY DAY IN THE MORNING 12/18 completed Not Available Not Available Not Available desvenlafax ine succinate ER 50 mg tablet,exte nded release 24 hr TAKE 1 TABLET BY MOUTH EVERY DAY IN THE MORNING 11/28 completed Not Available Not Available Not Available desvenlafax ine succinate ER 100 mg tablet,exte nded release 24 hr TAKE 1 TABLET BY MOUTH EVERY DAY IN THE MORNING 11/28 completed Not Available Not Available Not Available lidocaine 2 % mucosal jelly in applicator Take by mucous route. 11/28 completed Not Available Not Available Not Available Xarelto 20 mg tablet TAKE 1 TABLET BY MOUTH EVERY DAY 12/18 completed Not Available Not Available Not Available Myrbetriq 50 mg tablet,exte nded release TAKE 1 TABLET BY MOUTH EVERY DAY 08/10 /2023 completed Not Available Not Available Not Available Fluvirin 1302-3579 45 mcg (15 mcg x 3)/0.5 mL intramuscul ar suspension INJECT 0.5 ML INTRAMUSC ULARLY DIRECTED. 11/28 completed Not Available Not Available Not Available desvenlafax ine succinate ER 25 mg tablet,exte nded release 24 hr TAKE 1 TABLET BY MOUTH EVERY DAY 11/28 completed Not Available Not Available Not Available naloxone 4 mg/actuatio n nasal spray ADMINISTE R A SINGLE SPRAY IN ONE NOSTRIL UPON SIGNS OF OPIOID OVERDOSE. CALL 911. REPEAT AFTER 3 MINUTES IF NO RESPONSE. 11/28 completed Not Available Not Available Not Available Fluvirin 45 mcg (15 mcg x 3)/0.5 mL intramuscul ar suspension ADM 0.5ML IM UTD 11/28 completed Not Available Not Available Not Available Emgality Pen 120 mg/mL subcutaneou s pen injector 11/28 completed Not Available Not Available Not Available Aimovig Autoinjecto r 140 mg/mL subcutaneou s auto-inject or INJECT THE CONTENTS OF 1 PEN UNDER THE SKIN ONCE MONTHLY 12/18 completed Not Available Not Available Not Available Nurtec ODT 75 mg disintegrat ing tablet TAKE 1 TABLET BY MOUTH ONCE NEEDED FOR MIGRANE HEADACHE MAX 1 DOSE/24 HOURS OR 15/30 DAYS 11/28 completed Not Available Not Available Not Available COVID-19 test specimen collection TEST DIRECTED TODAY 11/28 completed Not Available Not Available Not Available Gemtesa 75 mg tablet TAKE 1 TABLET BY MOUTH EVERY DAY 12/18 completed Not Available Not Available Not Available Vitals Date Recorded Body mass index (BMI) Heart rate Body height Oxygen saturation Oxygen saturation in Arterial blood by Pulse oximetry Heart rate Respiratory rate Body temperature Body weight Systolic blood pressure Diastolic blood pressure Provider Name and Address Organization Details Last Updated DateTime 1 35.9 kg/m2 75 /min 175.26 cm 97 % 97 % 75 /min 18 /min 98.6 [degF] 905751. 66 g 122 mm[Hg] 92 mm[Hg] Not Available [facility] 3 19:11:59 Date Recorded Body mass index (BMI) Body height Oxygen saturation Oxygen saturation in Arterial blood by Pulse oximetry Body temperature Body weight Systolic blood pressure Diastolic blood pressure Provider Name and Address Organization Details Last Updated DateTime 1 33.5 kg/m2 175.26 cm 97 % 97 % 98.8 [degF] 601858. 47 g 153 mm[Hg] 89 mm[Hg] Not Available [facility] 19:11:59 Date Recorded Body mass index (BMI) Body height Body weight Provider Name and Address Organization Details Last Updated DateTime 03/29/2021 33.5 kg/m2 175.26 cm 001622.47 g Not Available [facility] 06/19/2022 19:12:00 Date Recorded Body weight Body temperature Oxygen saturation Oxygen saturation in Arterial blood by Pulse oximetry Heart rate Systolic blood pressure Diastolic blood pressure Provider Name and Address Organization Details Last Updated DateTime 3 474445. 09 g 97.9 [degF] 98 % 98 % 83 /min 139 mm[Hg] 93 mm[Hg] NATY Rivero [place] [employer] 11:06:54 Date Recorded Body mass index (BMI) Body height Provider Name and Address Organization Details Last Updated DateTime 11/28/2022 36.9 kg/m2 175.26 cm Nga Jones [place] [employer] 11/28/2022 11:05:40 Social History None recorded. Functional Status None recorded. Mental Status None recorded. Family History Nothing Reported. Medical History No medical history recorded. Immunizations Vaccine Type Date Status Note Provider Nam e and Address Organization Details Recorded Time influenza, unspecified formulation 3 completed Not Available [facility] 06/19/2022 19:12:36 tetanus toxoid, unspecified formulation 1 completed Not Available [facility] 06/19/2022 19:12:36 Influenza, high-dose, trivalent, PF 3 completed Not Available [facility] 06/19/2022 19:12:36 Influenza, high-dose, trivalent, PF 3 completed Not Available [facility] 06/19/2022 19:12:36 Past Encounters Encounter ID Performer Location Encounter Start Date Encounter Closed Date Diagnosis/Indication Diagnosis SNOMED-CT Code Diagnosis ICD10 Code Diagnosis Note [id number] [facility] [address], [address] [place] [address] 11/30/2020 00:00:00 11/30/2020 12:27:55 [id number] [facility] [address], [address] [address] 03/08/2021 00:00:00 03/08/2021 12:15:21 [id number] [facility] [address], [address] [address] 03/29/2021 00:00:00 03/29/2021 11:26:17 [id number] Primo Jerome MD [facility] [address] 11/28/2022 10:53:19 11/28/2022 11:25:37 Male hypogonadism 09651998 E29.1 check labs. discussed need for TRT. follow up in 2 week.s Health Concerns Section Related Observation LastModified by Organization Detai ls LastModified Time None Recorded Concern Status LastModified by Organization Details LastModified Time None Recorded Advance Directives Directive None Recorded Payers Encounter Date Sequence Insurance Name Policy Number Policy Kaba Covered Member ID Kaba Member ID Guarantor Name 11/28/2022 1 [facility]NAGEMENT (PPO) Homero Arechiga [id number] Homero Arechiga Notes Date Note Type Note Provider Name and Address Organization Details Recorded Time 03/08/2021 text/html Urinary FrequencyReported bypatient.Notes:The patient is a 45 yo male with severe LUTS. IPSS 34. This started several months ago. He was treated at urgent care with a week of Cipro. He saw his family doctor and he started on Flomax.He is complaining of frequency, nocturia times 5. He reports difficulty voiding and post void dribbling. He says he has to stop intercourse with his girlfriend because he has to pee. He denies any blood or burning in the urine. Not Available [place] - [facility] Daz 3d 03/08/2021 12:15:21 11/28/2022 text/html 47 yo male with hypogonadism. He went off Testosterone to have a baby and was put on Clomid. They were unsuccessful. He had no sex drive so they did not have sex. He as been off Clomid for 6 weeks. He is on Cialis. Primo Jerome MD [address] [place] [address], [place] [address], [place], [address], [place] [facility] [place] [employer] [facility] 11/28/2022 11:32:20
--- OUTSIDE RECORDS SUMMARY | 2024-05-19 20:27 | XMS_ITS | Clinical Summary ---
Author Organization [facility] Address [address] [place] [address] Care Team Providers Care Jet Mechanic Name Role Phone Unknown, Notinfile Unavailable Unavailable Nga Hernandez MD Primary Care Provider [phone] Allergies No known active allergies Medications metoclopramide (REGLAN) 10 mg tablet Take 1 tablet (10 mg total) by mouth 2 (two) times a day Take 1 tablet before meals. 10 tablet 9 Active clonazePAM (KlonoPIN) 1 mg tablet Take 1 tablet (1 mg total) by mouth 2 (two) times a day for 10 days 20 tablet 9 Active famotidine (PEPCID) 40 mg tablet Take 1 tablet (40 mg total) by mouth nightly 20 tablet 9 Active valACYclovir (VALTREX) 1 gram tablet Take 1,000 mg by mouth daily 2 Active traZODone (DESYREL) 50 mg tablet trazodone 50 mg tablet TK 1 TO 2 TS PO HS Active prazosin (MINIPRESS) 1 mg capsule TAKE 1-2 CAPSULES BY MOUTH AT BEDTIME DIRECTED 2 Active Vyvanse 60 mg capsule Take 60 mg by mouth every morning 2 Active lidocaine (LIDODERM) 5 % USE 1 TO 2 PATCHES EXTERNALLY ONCE DAILY NEEDED 2 Active lamoTRIgine (LaMICtal) 25 mg tablet TAKE 1 TABLET BY MOUTH DAILY [id number], THEN INCREASE TO 2 TABLETS DAILY 2 Active cyclobenzaprine (FLEXERIL) 10 mg tablet TAKE 1 TABLET BY MOUTH EVERY 8 TO 12 HOURS NEEDED 2 Active tadalafiL (CIALIS) 5 mg tablet Take 1 tablet (5 mg total) by mouth daily 90 tablet 2 2 Active clomiPHENE (CLOMID) 50 mg tablet Take 1 tablet (50 mg total) by mouth every morning q am, as dir 30 tablet 5 2 Active Xarelto 20 mg tablet 2 Active HYDROcodone-aceta minophen (NORCO) 10-325 mg per tablet TAKE 1 TABLET BY MOUTH EVERY 6 TO 8 HOURS NEEDED 2 Active Aimovig Autoinjector 140 mg/mL auto-injector INJECT 140MG UNDER THE SKIN ONCE MONTHLY 2 Active clonazePAM (KlonoPIN) 1 mg tablet Take by mouth 2 (two) times a day as needed 2 Active desvenlafaxine ER 50 mg 24 hr tablet [address] (PROTONIX) 40 mg EC tablet Take 40 mg by mouth daily 2 Active mirabegron ER (Myrbetriq) 50 mg tablet extended release 24 hr Take 1 tablet (50 mg total) by mouth daily 90 tablet 3 2 Active Active Problems Problem Noted Date Diagnosed Date Acne vulgaris 02/01/2022 Hypertensive disorder 02/01/2022 Sexually transmitted disease 02/01/2022 Venous thrombosis 02/01/2022 Viral hepatitis C 02/01/2022 Hypogonadism in male 02/01/2022 Infertility male 02/01/2022 Overactive bladder 12/21/2021 DVT, recurrent, lower extremity, chronic 015 Pulmonary embolism 08/01/2014 Medical History Medical History Date Comments DVT (deep vein thrombosis) in x5 PE (pulmonary thromboembolism) (CMS/HCC) ([facility]) x2 Social History Tobacco Use Types Packs/Day Years Used Date Smoking Tobacco: Former Cigarettes Tobacco Cessation:Counseling Given: Not Answered Sex and Gender Information Value Date Recorded Sex Assigned at Not on file Legal Sex Male 11:35 PM [employer] Gender Identity Not on file Sexual Orientation Not on file Obstetrics History Last Filed Vital Signs Vital Sign Reading Time Taken Comments Blood Pressure 103/63 06/27/2018 12:30 AM [employer]ING AND ME[employer]URING [employer]ICIAN Pulse 62 06/27/2018 12:30 AM DISP[employer]ING AND ME[employer]URING [employer]ICIAN Temperature 36.6 ??C (97.9 ??F) 06/26/2018 8:19 PM CS T Respiratory Rate 16 06/27/2018 12:30 AM [employer]ING AND ME[employer]URING OPTICIAN Oxygen Saturation 100% 06/27/2018 12:30 AM [employer]ING AND ME[employer]URING [employer]ICIAN Inhaled Oxygen Concentration - - Weight 90.7 kg (200 lb) 06/26/2018 8:19 PM [employer]ING [employer]IAN Height 175.3 cm (5' 9 ) 06/26/2018 8:19 PM [employer]ING [employer]IAN Body Mass Index 29.53 06/26/2018 8:19 PM [employer]ING [employer]ICIAN Plan of Treatment Health Maintenance Due Date Last Done Comments Colon Cancer Screening-Colonoscopy 1976 Depression Screening 1976 Pneumococcal vaccine <65 (1 of 2 - PCV) 1982 Regular Well Visit/Exam 18-64 1994 Covid-19 Vaccine (2023-2 5 season) 2023 04/23/2021, 04/12/2021, 06/22/2020, Additional history exists Influenza Vaccine (#1) 2023 , 12/29/2017, 01/23/2017, Additional history exists DTaP/Tdap/Td Vaccine (4 - Td or Tdap) 07/20/2028 07/20/2018, 12/07/2014, 04/21/2008 Hepatitis C Screening Completed 02/01/2022 Insurance [facility] CHOICE PLUS [facility] HMO/PPO Address: [address] [address] [place] [address] [employer] [facility] [place] [address] Care Teams Jet Mechanic Relationship Specialty [place] [address] [place] [address] PCP - General Internal Medicine 12/16/23 Unknown, Notinfile 11/26/21
--- OUTSIDE RECORDS SUMMARY | 2024-05-19 20:27 | XMS_ITS | Clinical Summary ---
Author Organization [facility] Address [address] [place] [place] [address] Phone Care Team Providers Care Market Asset Protection Manager Name Role Phone Tello Denton MD Primary Care Provider Allergies No known active allergies Medications hydroCHLOROthiaz jos 12.5 MG Tablet Take 1 tablet every day by oral route in the morning. Active Aimovig 140 MG/ML Solution Auto-injector Inject 140 mg as needed by subcutaneous route as directed. Active Xarelto 20 MG Tablet Take 1 Tablet by mouth daily. Active valACYclovir (VALTREX) 1 GM Tablet TAKE 1 TABLET BY MOUTH EVERY DAY DIRECTED Active Nurtec 75 MG TABLET DISPERSIBLE DISSOLVE 1 TABLET ON THE TONGUE EVERY DAY NEEDED Active lidocaine (LIDODERM) 5 % Patch UNWRAP AND APPLY 1 TO 2 PATCHES EVERY DAY NEEDED Active HYDROcodone-acet aminophen (NORCO) 10-325 MG Tablet TAKE 1 TABLET BY MOUTH EVERY 8 TO 12 HOURS NEEDED FOR LOWER BACK PAIN Active pantoprazole (PROTONIX) 40 MG Tablet Delayed Response take 1 tablet by mouth every day as directed 022 Active Vyvanse 60 MG CapsuleIndicatio ns:Attention Deficit Hyperactivity Disorder Take 1 Capsule by mouth daily. Indications: Attention Deficit Hyperactivity Disorder 30 Capsule 024 Active Vyvanse 60 MG CapsuleIndicatio ns:Attention Deficit Hyperactivity Disorder Take 1 Capsule by mouth daily. Indications: Attention Deficit Hyperactivity Disorder 30 Capsule 024 Active Vyvanse 60 MG CapsuleIndicatio ns:Attention Deficit Hyperactivity Disorder Take 1 Capsule by mouth daily. Indications: Attention Deficit Hyperactivity Disorder 30 Capsule Active ALPRAZolam (XANAX) 0.5 MG TabletIndication s:Generalized anxiety disorder Take 1 Tablet by mouth 3 times daily as needed for Anxiety. 90 Tablet 3 Active lamoTRIgine (LaMICtal) 100 MG Tablet Take 1 Tablet by mouth daily. 30 Tablet 3 Active Lisdexamfetamine Dimesylate 60 MG CapsuleIndicatio ns:Attention Deficit Hyperactivity Disorder Take 1 Capsule by mouth daily for 30 days. Indications: Attention Deficit Hyperactivity Disorder 30 Capsule 025 2024 Active Lisdexamfetamine Dimesylate 60 MG CapsuleIndicatio ns:Attention Deficit Hyperactivity Disorder Take 1 Capsule by mouth daily for 30 days. Indications: Attention Deficit Hyperactivity Disorder 30 Capsule 025 2024 Active Lisdexamfetamine Dimesylate 60 MG CapsuleIndicatio ns:Attention Deficit Hyperactivity Disorder Take 1 Capsule by mouth daily for 30 days. Indications: Attention Deficit Hyperactivity Disorder 30 Capsule 025 2024 Active prazosin (MINIPRESS) 1 MG Capsule Take 1 Capsule by mouth nightly. Uses PRN 30 Capsule 2 Active ALPRAZolam (XANAX) 0.5 MG TabletIndication s:Generalized anxiety disorder Take 1 Tablet by mouth 3 times daily as needed for Anxiety. 90 Tablet 3 024 2024 Discontinued(R eorder) lamoTRIgine (LaMICtal) 100 MG Tablet Take 1 Tablet by mouth daily. 30 Tablet 3 024 2024 Discontinued(R eorder) prazosin (MINIPRESS) 1 MG Capsule Take 1 Capsule by mouth nightly. 30 Capsule 3 024 2024 Discontinued buPROPion (WELLBUTRIN) 150 MG XL tablet Take 1 Tablet by mouth every morning. 90 Tablet 024 2024 Discontinued(S jos effects) Active Problems Problem Noted Date Diagnosed Date Attention deficit hyperactivity disorder, combin ed type 01/28/2023 Generalized anxiety disorder 05/10/2021 Mixed bipolar I disorder 12/21/2020 Encounters Date Type Department Care Team Description 05/09/2024 Refill [facility] [address] [place] [address] [phone] Mallika Jung APRN, CNP Medication Refill 05/06/2024 11:00 AM TAKER OFF [employer] Office Visit [facility] [address] [place] [address] [phone] Mallika Jung APRN, JOSE ALFREDO Mixed bipolar I disorder (HCC) (Primary Dx); Generalized anxiety disorder; Attention deficit hyperactivity disorder (ADHD), predominantly inattentive type 05/06/2024 Travel 04/06/2024 Telephone [facility] [address] [place] [address] [phone] Mallika Jung APRN, CNP 03/24/2024 Telephone [facility] [address] [place] [address] [phone] Mallika Jung APRN, JOSE ALFREDO from Last 3 Months Family History Medical History Relation Name Comments Attention Deficit Hyperactivity Disorder Brother Attention Deficit Hyperactivity Disorder Daughter x3 Alcohol Abuse Father Suicide Attempts Father suicide Alcohol Abuse Maternal Grandfather Alcohol Abuse Maternal Grandmother Anxiety disorder Mother Attention Deficit Hyperactivity Disorder Mother Depression Mother Diabetes Mother Alcohol Abuse Paternal Grandfather Heart Disease Paternal Grandfather Alcohol Abuse Paternal Grandmother Relation Name Status Comments Brother Daughter x3 Alive Father Maternal Grandfather Maternal Grandmother Mother Paternal Grandfather Paternal Grandmother Social History Tobacco Use Types Packs/Day Years Used Date Smoking Tobacco: Former Cigarettes Q uit: 2018 Smokeless Tobacco: Never Tobacco Cessation:Counseling Given: Not Answered Alcohol Use Standard Drinks/Week Comments Not Currently 0 (1 standard drink = 0.6 oz pur e alcohol) PHQ-2 Answer Date Recorded Total Score - Questions 1-9 10 01/19 Sexually Active Control Partners Comments Yes Sex and Gender Information Value Date Recorded Sex Assigned at Not on file Legal Sex Male 1:47 PM CDT Gender Identity Male 11/03/2023 1:47 PM CDT Sexual Orientation Straight 11/03/2023 1: 47 PM CDT Last Filed Vital Signs Vital Sign Reading Time Taken Comments Blood Pressure 146/83 05/06/2024 11:21 AM [employer] Pulse 93 05/06/2024 11:11 AM T[employer] Temperature - - Respiratory Rate 20 05/06/2024 11:11 AM T[employer]ER [employer] Oxygen Saturation 100% 05/06/2024 11:11 AM T[employer] Inhaled Oxygen Concentration - - Weight 97.5 kg (215 lb) 05/06/2024 11:11 AM T[employer] Height 175.3 cm (5' 9 ) 05/06/2024 11:11 AM T[employer] Body Mass Index 31.75 05/06/2024 11:11 AM T[employer]ER [employer] Plan of Treatment Upcoming Encounters Date Type Department Care Team (Late st Contact Info) Description 08/05/2024 10:45 AM CDT Office Visit [facility] [address] [place] [address] [phone] Mallika Jung, ALARM INSTALLER, EDUCATION SITE MANAGER [address] [place] [address] [phone] (Work) Health Maintenance Due Date Last Done Comments Hepatitis C Virus (HCV) Screening 1975 Hepatitis B Immunization (2 of 3 - 19+ 3-dose series) 08/16/2015 07/19/2015 Colonoscopy 2021 Colorectal Cancer Screening 2021 SARS-COV-2 Immunization ( season) 2023 01/26/2023, 02/15/2022, 01/21/2022, Additional history exists Respiratory Syncytial Virus (RSV) Immunization (Adult) (1 - 1-dose 75+ series) 08/30/2051 TdaP Immunization Completed 07/20/2018, , 04/21/2008 Influenza Immunization Completed , 12/28/2022, 02/15/2022, Additional history exists Meningococcal Immunization (ACWY) Aged Out No longer eligible based on patient's age to complete this topic Pneumococcal Immunization Combined Aged Out No longer eligible based on patient's age to complete this topic Rotavirus Immunization Aged Out No lo nger eligible based on patient's age to complete this topic Insurance [employer] [facility] Care Teams Market Asset Protection Manager Relationship Specialty [place] [address] [place] [id number] PCP - General Internal Medicine 01/30/24
--- OUTSIDE RECORDS SUMMARY | 2024-05-19 20:28 | XMS_ITS | Data Portability ---
Author Organization [place] [facility] autoContract - [facility] Address [address] [facility] [address] [place] [address] Assessment Encounter Date Assessment Date Assessment LastModified by Organization Details LastModified Time 09/11/2021 09/11/2021 Pt here with below diagnosis - pt here for evaluation for their condition, evaluation of their medication use, and discussion for alternative treatments. [email or web address] Not available 09/11/2021 15:31:39 09/14/2021 09/14/2021 Pt here with below diagnosis - pt here for evaluation for their condition, evaluation of their medication use, and discussion for alternative treatments. Pt being seen today for follow up visit. We discussed patients future use of MMJ. We discussed the risks and benefits. Pt understands that we will certify them, but the recommendation does not constitute a prescription for medical cannabis. [email or web address] Not available 09/14/2021 10:57:04 06/11/2022 06/11/2022 Pt here with below diagnosis - pt here for evaluation for their condition, evaluation of their medication use, and discussion for alternative treatments. I spent 45 mins with this pt. Not available 10/08/2022 19:08:14 Plan of Treatment Reminders Order Date Submit Date Provider Last Modified By Organization Details Last Modified Time Details Appointments None record ed. Lab None record ed. Referral None record ed. Procedures None record ed. Surgeries None record ed. Imaging None record ed. Medication Orders None record ed. Patient TargetsNo targets recorded. Patient Instructions Encounter Date Encounter Id Patient Instructions Last Modified By Organization Details Last Modified Time 09/11/2021 [id number] epilepsy: care instructions [email or web address] Not available 09/11/2021 15:32:09 hepatitis C: car e instructions [email or web address] Not available 09/11/2021 15:32:09 I have discussed the risks and benefits of Medical Marijuana. Pt understands I am not prescribing this medication. I am certifying that this patient has a condition that is recognized by the state as qualifying for medical marijuana and this recommendation does not constitute a prescription for medical cannabis. Pt understands that my physician written certification form does not guarantee Medical Marijuana certification nor does it endorse the patient as needing medical marijuana. Patient understands that Medical Marijuana is a drug that the federal government has classified cannabis as a Schedule I controlled substance. Schedule 1 substances are defined, in part, as having (1) a high potential for abuse; (2) no currently accepted medical use in treatment in the [place]; and (3) a lack of accepted Safety for use under medical supervision. Federal law prohibits the manufacture, distribution and possession of cannabis even in states, which have modified their state laws to treat cannabis as a medicine. Pt also agrees that me, and the [facility] Team are my treating physicians and that we are in charge of treating the patient's conditions and that the patient will make a good ralph effort to remain under my treatment plan and acknowledge there will be follow up visits from this date forward to monitor the patient's condition. Discussed risks and benefits of Medical Marijuana. I have spent time discussing the patients condition, pain/medical management of the patient given their debilitating condition, the risks and benefits of this medication, a history and physical, gathering old medical records to look at the disease processes being evaluated, and answering of all questions. Attending Attestation Note ? I reviewed the chart and I agree with PA note and management plan. ? I was available via text/email/phone/geneva garcía during the patient's evaluation. ? I reviewed the patient's pertinent studies (labs/x-rays/EKG/e tc.). Not available 09/13/2021 01:32:58 09/14/2021 [id number] epilepsy: care instructions [email or web address] Not available 09/14/2021 10:57:28 hepatitis C: car e instructions [email or web address] Not available 09/14/2021 10:57:28 I have discussed the risks and benefits of Medical Marijuana. Pt understands I am not prescribing this medication. I am certifying that this patient has a condition that is recognized by the state as qualifying for medical marijuana and this recommendation does not constitute a prescription for medical cannabis. Pt understands that my physician written certification form does not guarantee Medical Marijuana certification nor does it endorse the patient as needing medical marijuana. Patient understands that Medical Marijuana is a drug that the federal government has classified cannabis as a Schedule I controlled substance. Schedule 1 substances are defined, in part, as having (1) a high potential for abuse; (2) no currently accepted medical use in treatment in the [place]; and (3) a lack of accepted Safety for use under medical supervision. Federal law prohibits the manufacture, distribution and possession of cannabis even in states, which have modified their state laws to treat cannabis as a medicine. Pt also agrees that me, and the [facility] Team are my treating physicians and that we are in charge of treating the patient's conditions and that the patient will make a good ralph effort to remain under my treatment plan and acknowledge there will be follow up visits from this date forward to monitor the patient's condition. Discussed risks and benefits of Medical Marijuana. I have spent time discussing the patients condition, pain/medical management of the patient given their debilitating condition, the risks and benefits of this medication, a history and physical, gathering old medical records to look at the disease processes being evaluated, and answering of all questions. Attending Attestation Note ? I reviewed the chart and I agree with PA note and management plan. ? I was available via text/email/phone/[employer] during the patient's evaluation. ? I reviewed the patient's pertinent studies (labs/x-rays/EKG/e tc.). Not available 09/18/2021 05:31:44 06/11/2022 [id number] I have discussed the risks and benefits of Medical Marijuana. Pt understands I am not prescribing this medication. I am certifying that this patient has a condition that is recognized by the state as qualifying for medical marijuana and this recommendation does not constitute a prescription for medical cannabis. Pt understands that my physician written certification form does not guarantee Medical Marijuana certification nor does it endorse the patient as needing medical marijuana. Patient understands that Medical Marijuana is a drug that the federal government has classified cannabis as a Schedule I controlled substance. Schedule 1 substances are defined, in part, as having (1) a high potential for abuse; (2) no currently accepted medical use in treatment in the [place]; and (3) a lack of accepted Safety for use under medical supervision. Federal law prohibits the manufacture, distribution and possession of cannabis even in states, which have modified their state laws to treat cannabis as a medicine. Pt also agrees that me, and the [facility] Team are my treating physicians and that we are in charge of treating the patient's conditions and that the patient will make a good ralph effort to remain under my treatment plan and acknowledge there will be follow up visits from this date forward to monitor the patient's condition. Discussed risks and benefits of Medical Marijuana. I have spent time discussing the patients condition, pain/medical management of the patient given their debilitating condition, the risks and benefits of this medication, a history and physical, gathering old medical records to look at the disease processes being evaluated, and answering of all questions. [email or web address] Not available 06/11/2022 14:11:31 Reason for Referral None Reported. Medical Equipment None Reported. Medications Name Sig Start Date Stop Date Status Note LastModified by Organization Details LastModified Time cyclobenzapr ine 10 mg tablet TAKE 1 TABLET BY MOUTH EVERY 8 TO 12 HOURS NEEDED active Not Available Not Available No t Available methocarbamo l 500 mg tablet TAKE 1 TABLET BY MOUTH EVERY 8-12 HOURS NEEDED active Not Available Not Available No t Available nystatin 100,000 unit/mL oral suspension SWISH AND SWALLOW 4 ML BY MOUTH 4 TIMES DAILY X14 DAYS active Not Available Not Available No t Available BD Luer-Vikki Syringe 3 mL 25 x 1 1/2 USE 1 SYRINGE NEEDED. active Not Available Not Available No t Available clomiphene citrate 50 mg tablet TAKE 1 TABLET BY MOUTH EVERY MORNING DIRECTED active Not Available Not Available No t Available valacyclovir 1 gram tablet TAKE 1 TABLET BY MOUTH EVERY DAY DIRECTED active Not Available Not Available No t Available prazosin 1 mg capsule TAKE 1-2 CAPSULES BY MOUTH AT BEDTIME DIRECTED active Not Available Not Available No t Available clonazepam 1 mg tablet TAKE 1 TABLET BY MOUTH TWICE A DAY NEEDED active Not Available Not Available No t Available lithium carbonate 150 mg capsule TAKE 1 CAPSULE BY MOUTH TWICE A DAY DIRECTED active Not Available Not Available No t Available ciprofloxaci n 500 mg tablet TAKE 1 TABLET BY MOUTH TWICE A DAY active Not Available Not Available No t Available hydrocodone 10 mg-acetamino phen 325 mg tablet TAKE 1 TABLET BY MOUTH FOUR TIMES A DAY NEEDED active Not Available Not Available No t Available ondansetron 8 mg disintegrati ng tablet TAKE 1 TABLET BY MOUTH THREE TIMES A DAY active Not Available Not Available Not Available lamotrigine 25 mg tablet TAKE 2 TABLETS BY MOUTH EVERY DAY FOR 30 DAYS active Not Available Not Available No t Available alprazolam 0.5 mg tablet TAKE 1 TABLET BY MOUTH TWICE A DAY active Not Available Not Available No t Available methocarbamo l 750 mg tablet TAKE 1 TABLET BY MOUTH EVERY 8 TO 12 HOURS active Not Available Not Available No t Available tamsulosin 0.4 mg capsule TAKE 1 CAPSULE BY MOUTH EVERYDAY AT BEDTIME active Not Available Not Available No t Available benzonatate 100 mg capsule TAKE 1 CAPSULE BY MOUTH THREE TIMES A DAY NEEDED FOR 7 DAYS active Not Available Not Available N ot Available doxycycline monohydrate 100 mg capsule TAKE 1 CAPSULE BY MOUTH TWICE A DAY FOR 7 DAYS active Not Available Not Available No t Available pantoprazole 40 mg tablet,delay ed release TAKE 1 TABLET BY MOUTH EVERY DAY DIRECTED active Not Available Not Available No t Available lidocaine 5 % topical patch USE 1 TO 2 PATCHES EXTERNALLY ONCE DAILY NEEDED active Not Available Not Available No t Available acetaminophe n 300 mg-codeine 60 mg tablet TAKE 1 TABLET BY MOUTH EVERY 8-12 HOURS NEEDED active Not Available Not Available No t Available testosterone cypionate 200 mg/mL intramuscula r oil INJECT 0.5 ML INTO THE MUSCLE ONCE WEEKLY *DISCARD VIAL AFTER 1 USE* active Not Available Not Available No t Available BD Luer-Vikki Syringe 3 mL 21 gauge x 1 1/2 USE TO INJECT TESTOSTERON E INTO THE MUSCLE ONCE WEEKLY active Not Available Not Available No t Available BD Luer-Vikki Syringe 3 mL 22 x 1 1/2 USE TO INJECT TESTOSTERON E active Not Available Not Available No t Available lamotrigine 100 mg tablet TAKE 1 TABLET BY MOUTH EVERY DAY FOR 30 DAYS active Not Available Not Available No t Available tadalafil 5 mg tablet TAKE 1 TABLET BY MOUTH EVERY DAY active Not Available Not Available No t Available solifenacin 10 mg tablet TAKE 1 TABLET BY MOUTH DAILY IN THE MORNING *SWALLOW WHOLE DO NOT CRUSH,CHEW OR SPLIT* active Not Available Not Available No t Available BD Integra Syringe 3 mL 22 gauge x 1 1/2 USE TO INJECT TESTOSTERON E active Not Available Not Available No t Available Vyvanse 50 mg capsule TAKE 1 CAPSULE BY MOUTH EVERY DAY IN THE MORNING active Not Available Not Available No t Available Vyvanse 60 mg capsule TAKE 1 CAPSULE BY MOUTH EVERY DAY IN THE MORNING active Not Available Not Available No t Available desvenlafaxi ne succinate ER 50 mg tablet,exten ded release 24 hr TAKE 1 TABLET BY MOUTH EVERY DAY IN THE MORNING active Not Available Not Available No t Available desvenlafaxi ne succinate ER 100 mg tablet,exten ded release 24 hr TAKE 1 TABLET BY MOUTH EVERY DAY IN THE MORNING active Not Available Not Available No t Available Xarelto 20 mg tablet TAKE 1 TABLET BY MOUTH EVERY DAY (NEED FOLLOW UP) active Not Available Not Available N ot Available Myrbetriq 50 mg tablet,exten ded release TAKE 1 TABLET BY MOUTH EVERY DAY active Not Available Not Available No t Available naloxone 4 mg/actuation nasal spray ADMINISTER A SINGLE SPRAY IN ONE NOSTRIL UPON SIGNS OF OPIOID OVERDOSE. CALL 911. REPEAT AFTER 3 MINUTES IF NO RESPONSE. active Not Available Not Available No t Available Emgality Pen 120 mg/mL subcutaneous pen injector INJECT THE CONTENTS OF 1 PEN INTO THE SKIN ONCE MONTHLY active Not Available Not Available No t Available Aimovig Autoinjector 140 mg/mL subcutaneous auto-injecto r INJECT THE CONTENTS OF 1 PEN UNDER THE SKIN ONCE MONTHLY active Not Available Not Available No t Available Nurtec ODT 75 mg disintegrati ng tablet TAKE 1 TABLET BY MOUTH ONCE NEEDED FOR MIGRANE HEADACHE MAX 1 DOSE/24 HOURS OR 15/30 DAYS active Not Available Not Available N ot Available Gemtesa 75 mg tablet TAKE 1 TABLET BY MOUTH EVERY DAY active Not Available Not Available No t Available Vitals None Recorded Social History None recorded. Functional Status None recorded. Mental Status None recorded. Family History Nothing Reported. Medical History No medical history recorded. Past Encounters Encounter ID Performer Location Encounter Start Date Encounter Closed Date Diagnosis/Indication Diagnosis SNOMED-CT Code Diagnosis ICD10 Code Diagnosis Note [id number] MD Perla Michel[address] [place] [address] 09/11/2021 15:21:21 09/11/2021 15:45:14 Chronic hepatitis C 125550260 B18.2 Seizure disorder 3886786 02 G40.909 [id number] Tray Ferny, MD [facility] [address] [place] [address] 09/14/2021 10:55:45 09/14/2021 13:37:27 Chronic hepatitis C 488946628 B18.2 Seizure disorder 8150487 02 G40.909 [id number] Tray Isaacs MD [facility] [address] [place] [address] 06/11/2022 14:07:25 10/08/2022 19:08:18 Seizure disorder 574177099 G40.909 Chronic hepatitis C 1283 50541 B18.2 Health Concerns Section Related Observation LastModified by Organization Detai ls LastModified Time None Recorded Concern Status LastModified by Organization Details LastModified Time None Recorded Advance Directives Directive None Recorded Payers Encounter Date Sequence Insurance Name Policy Number Policy Kaba Covered Member ID Kaba Member ID Guarantor Name 09/11/2021 1 [facility] [id number] Hoemro Arechiga [id number] Homero Arechiga 09/14/2021 1 [facility] [id number] Homero Arechiga [id number] Homero Arechiga 06/11/2022 1 [facility] (O) Rosario Arechiga [id number] Homero Arechiga Notes Date Note Type Note Provider Name and Address Organization Details Recorded Time 09/11/2021 text/html The patient woul d like to discuss medications, the disease, and how to handle it. Pt would also like to discuss alternative treatments to this condition. Pt was referred here for further evaluation and treatment if necessary. Patient has a diagnosis of qualifying condition - CHRONIC HEPATITIS C AND SEIZURES Tray Isaacs MD [address], [place], [address], [facility] - [facility] 09/13/2021 01:33:03 09/14/2021 text/html The patient woul d like to discuss medications, the disease, and how to handle it. Pt would also like to discuss alternative treatments to this condition. Pt was referred here for further evaluation and treatment if necessary. Patient has a diagnosis of qualifying condition - chronic Hepatitis C/seizures Pt saw the Provider to discuss medications, the disease, and how to handle it. Also discussed alternative treatments to this condition. Pt was referred here for further evaluation and treatment if necessary. Pt now presents for their 2nd visit to discuss the condition and develop a patient-provider relationship. We discussed the above and future use of medical cannabis. Tray Isaacs MD [address], [address], [place], [address], [facility] 09/18/2021 05:31:51 06/11/2022 text/html The patient woul d like to discuss medications, the disease, and how to handle it. Pt would also like to discuss alternative treatments to this condition. Pt was referred here for further evaluation and treatment if necessary. Patient has a diagnosis of qualifying condition - Hepatitis and Seizure Disorder Tray Isaacs MD [address], [address], [place], [address], [facility] 10/08/2022 19:08:17
--- OUTSIDE RECORDS SUMMARY | 2024-05-19 20:28 | XMS_ITS | CONTINUITY OF CARE DOCUMENT ---
Author Name ren mcclure Address Unknown Organization [facility] Address [address] [place] [address] Phone [phone] Care Team Providers Care Partner Alliance Manager Name Role Phone Adan Peñaloza MD Unavailable DINAH FRITZ MD Unavailable [phone] WOJCIECH FLORES MD Unavailable [phone] INSURANCE PROVIDERS Payer name Policy type / Coverage type Douglas red green party ID [facility] NoDaysOff [id number]
--- OUTSIDE RECORDS SUMMARY | 2024-05-19 20:28 | XMS_ITS | Referral Summary ---
Author Organization [facility] Address [address] [place] [address] Care Team Providers Care Beer Runner Name Role Phone Unknown, Notinfile Unavailable Unavailable Nga Hernandez MD Primary Care Provider [phone] Allergies No known active allergies Medications metoclopramide [...] tablet TAKE 1 TABLET BY MOUTH DAILY [id number], THEN INCREASE TO 2 TABLETS DAILY 2 [...] lower extremity, chronic 015 Pulmonary embolism 08/01/2014 Social History Tobacco Use Types Packs/Day Years Used Date Smoking Tobacco: Former Cigarettes Tobacco Cessation:Counseling Given: Not Answered Sex and Gender Information Value Date Recorded Sex Assigned at Not on file Legal Sex Male 11:35 PM [employer]ESSP[employer] Gender Identity Not on file Sexual Orientation Not on file Last Filed Vital Signs Vital Sign Reading Time Taken Comments Blood Pressure 103/63 06/27/2018 12:30 AM CESSPOOL CLEANER Pulse 62 06/27/2018 12:30 AM CESSPOOL CLEANER Temperature 36.6 ??C (97.9 ??F) 06/26/2018 8:19 PM CS T Respiratory Rate 16 06/27/2018 12:30 AM CESSPOOL CLEANER Oxygen Saturation 100% 06/27/2018 12:30 AM CESSPOOL CLEANER Inhaled Oxygen Concentration - - Weight 90.7 kg (200 lb) 06/26/2018 8:19 PM CESSPOOL CLEANER Height 175.3 cm (5' 9 ) 06/26/2018 8:19 PM CESSPOOL CLEANER Body Mass Index 29.53 06/26/2018 8:19 PM CESSPOOL CLEANER Plan of Treatment Not on file Insurance [facility] UHC CHOICE PLUS [facility] H[facility]/PPO Address: [facility] [id number] [place] [id number] [employer] Care Teams Beer Runner Relationship Specialty [place] [address] [place] [address] PCP - General Internal Medicine 12/16/23 Unknown, Notinfile 11/26/21
--- OUTSIDE RECORDS SUMMARY | 2024-05-19 20:28 | XMS_ITS | Continuity of Care Document ---
Author Organization [facility] Address [address] [place] [address] Phone Care Team Providers Care Mgmt Analyst Name Role Phone Talon Ambrose Unavailable Unavailable Advance Directives Directive Yes / No Effective Date File Name No Information Encounters Encounter Description Practice Location Reason(s) For Visit Diagnoses Date Provider Providers Copied on Encounter [facility], [address] [place] [address], [facility], tel:[phone] *[facility] No Information Arnol Hanley. [address] [place] [address], [facility], [place]. tel:[phone] Family History Family Member Type Diagnosis Age At Onset No Information Payers Payer name Insurance type Covered libertarian ID Authoriza tion(s) No Information Social History Type Description Quantity Date Captured Comments Sex Male Smoking Status No Information Chief Complaint And Reason For Visit No Information Reason For Referral Reason For Referral No Information History Of Present Illness Encounter Date Complaint History Of Prese nt Illness No Information Functional Status Date Functional Assessmen t No Information Instructions Date Instruction Additional Infor mation No Information Assessments Type Assessment Date No Information Patient Care Teams Name Effective Dates (start - stop) Status Members No Information
[2024-05-19 20:33] VITALS: BP 149/99; PULSE 84; RESP 17; TEMP 36.7; O2SAT 100
--- NOTE | 2024-05-19 21:50 | PC.NURSE ---
Patient to desk asking for armband to be cut off and wanting to leave.
--- OUTSIDE RECORDS SUMMARY | 2024-05-19 22:35 | XMS_ITS | Clinical Summary ---
Author Organization [facility] Address [address] [place] [address] Phone Care Team Providers Care Inshore Undersea Warfare Officer Name Role Phone Tello Denton MD Primary [...] Type Department Care Team Description 05/09/2024 Refill [facility] [address] [place] [address] [phone] Mallika Jung APRN, CNP Medication Refill 05/06/2024 11:00 AM PATIENT SERVICES MANAGER Office Visit [facility] [address] [place] [address] [phone] Mallika Jung APRN, JOSE ALFREDO Mixed bipolar I disorder (HCC) (Primary Dx); Generalized anxiety disorder; Attention deficit hyperactivity disorder (ADHD), predominantly inattentive type 05/06/2024 Travel 04/06/2024 Telephone [facility] [address] [place] [address] [phone] Mallika Jung APRN, CNP 03/24/2024 Telephone [facility] [address] [place] [address] [phone] Mallika Jung APRN, JOSE ALFREDO from [...] Comments Blood Pressure 146/83 05/06/2024 11:21 AM PATIENT SERVICES MANAGER Pulse 93 05/06/2024 11:11 AM PATIENT SERVICES MANAGER Temperature - - Respiratory Rate 20 05/06/2024 11:11 AM PATIENT SERVICES MANAGER Oxygen Saturation 100% 05/06/2024 11:11 AM PATIENT SERVICES MANAGER Inhaled Oxygen Concentration - - Weight 97.5 kg (215 lb) 05/06/2024 11:11 AM PATIENT SERVICES MANAGER Height 175.3 cm (5' 9 ) 05/06/2024 11:11 AM PATIENT SERVICES MANAGER Body Mass Index 31.75 05/06/2024 11:11 AM PATIENT SERVICES MANAGER Plan of Treatment Upcoming Encounters Date Type Department Care Team (Late st Contact Info) Description 08/05/2024 10:45 AM CDT Office Visit [facility] [address] [place] [address] [phone] Mallika Jung, PORTABLE GRINDING MACHINE OPERATOR, ACCOUNTS OFFICER [address] [place] [address] [phone] (Work) Health Maintenance Due Date Last [...] age to complete this topic Insurance [employer] [facility] Care Teams Inshore Undersea Warfare Officer Relationship Specialty [place] [address] [place] [id number] PCP - General Internal Medicine 01/30/24
--- OUTSIDE RECORDS SUMMARY | 2024-05-19 22:35 | XMS_ITS | Continuity of Care Document ---
Author Organization [facility] Address [address] [place] [address] Phone Care Team Providers Care Continuous Improvement Intern Name Role Phone Talon Ambrose Unavailable Unavailable Advance Directives Directive Yes / No Effective Date File Name No Information Encounters Encounter Description Practice Location Reason(s) For Visit Diagnoses Date Provider Providers Copied on Encounter [facility], [address] [place] [address], [facility], tel:[phone] *[facility]a [facility] No Information Arnol Hanley. [address] [place] [address], [facility], [place]. tel:[phone] Family History Family Member Type Diagnosis Age At Onset No Information Payers Payer name Insurance type Covered republican ID Authoriza tion(s) No Information Social History [...]
--- OUTSIDE RECORDS SUMMARY | 2024-05-19 22:35 | XMS_ITS | Clinical Summary ---
Author Organization [facility] Address [address] [place] [address] Care Team Providers Care Paint Spraying Machine Operator Helper Name Role Phone Unknown, Notinfile Unavailable Unavailable Nga Hernandez MD Primary Care Provider [phone] Allergies No known active allergies Medications metoclopramide [...] tablet TAKE 1 TABLET BY MOUTH DAILY [id number], THEN INCREASE TO 2 TABLETS DAILY 2 [...] thrombosis) in x5 PE (pulmonary thromboembolism) (CMS/HCC) ([facility]) x2 Social History Tobacco Use Types Packs/Day Years Used Date Smoking Tobacco: Former Cigarettes Tobacco Cessation:Counseling Given: Not Answered Sex and Gender Information Value Date Recorded Sex Assigned at Not on file Legal Sex Male 11:35 PM DRAY DRIVER Gender Identity Not on file Sexual Orientation Not on file Obstetrics History Last Filed Vital Signs Vital Sign Reading Time Taken Comments Blood Pressure 103/63 06/27/2018 12:30 AM DRAY DRIVER Pulse 62 06/27/2018 12:30 AM DRAY DRIVER Temperature 36.6 ??C (97.9 ??F) 06/26/2018 8:19 PM CS T Respiratory Rate 16 06/27/2018 12:30 AM DRAY DRIVER Oxygen Saturation 100% 06/27/2018 12:30 AM DRAY DRIVER Inhaled Oxygen Concentration - - Weight 90.7 kg (200 lb) 06/26/2018 8:19 PM DRAY DRIVER Height 175.3 cm (5' 9 ) 06/26/2018 8:19 PM DRAY DRIVER Body Mass Index 29.53 06/26/2018 8:19 PM DRAY DRIVER Plan of Treatment Health Maintenance Due Date [...] 04/21/2008 Hepatitis C Screening Completed 02/01/2022 Insurance [facility] CHOICE PLUS CIGNA ALLEGIANCE [facility] [place] [id number] Care Teams Paint Spraying Machine Operator Helper Relationship Specialty [place] [address] [place] [address] PCP - General Internal Medicine 12/16/23 Unknown, Notinfile 11/26/21
--- OUTSIDE RECORDS SUMMARY | 2024-05-19 22:36 | XMS_ITS | Referral Summary ---
Author Organization [facility] Address [address] [place] [address] Care Team Providers Care Legal Writing Professor Name Role Phone Unknown, Notinfile Unavailable Unavailable Nga Hernandez MD Primary Care Provider [phone] Allergies No known active allergies Medications metoclopramide [...] tablet TAKE 1 TABLET BY MOUTH DAILY [id number], THEN INCREASE TO 2 TABLETS DAILY 2 [...] on file Legal Sex Male 11:35 PM CLINIC COORDINATOR Gender Identity Not on file Sexual Orientation Not on file Last Filed Vital Signs Vital Sign Reading Time Taken Comments Blood Pressure 103/63 06/27/2018 12:30 AM CLINIC COORDINATOR Pulse 62 06/27/2018 12:30 AM CLINIC COORDINATOR Temperature 36.6 ??C (97.9 ??F) 06/26/2018 8:19 PM CS T Respiratory Rate 16 06/27/2018 12:30 AM CLINIC COORDINATOR Oxygen Saturation 100% 06/27/2018 12:30 AM CLINIC COORDINATOR Inhaled Oxygen Concentration - - Weight 90.7 kg (200 lb) 06/26/2018 8:19 PM CLINIC COORDINATOR Height 175.3 cm (5' 9 ) 06/26/2018 8:19 PM CLINIC COORDINATOR Body Mass Index 29.53 06/26/2018 8:19 PM CLINIC COORDINATOR Plan of Treatment Not on file Insurance [facility] UHC CHOICE PLUS [facility]ICAL [facility] HMO/PPO Address: [facility] [id number] [place] [id number] [employer] ALLE[employer]ANCE [employer] Care Teams Legal Writing Professor Relationship Specialty [place] [address] [place] [address] PCP - General Internal Medicine 12/16/23 Unknown, Notinfile 11/26/21
--- OUTSIDE RECORDS SUMMARY | 2024-05-19 22:36 | XMS_ITS | CONTINUITY OF CARE DOCUMENT ---
Author Name ren mcclure Address Unknown Organization [facility] Address [address] [facility] [address] [place] [address] Phone [phone] Care Team Providers Care Pulper Operator Name Role Phone Adan Peñaloza MD Unavailable DINAH FRITZ MD Unavailable [phone] WOJCIECH FLORES MD Unavailable INSURANCE PROVIDERS Payer name Policy type / Coverage type [place] red libertarian ID [facility] [employer] [id number]
== END 2024-05-19 22:05 | disposition left against medical advice (07) ==
DX: S69.92XA Unspecified injury of left wrist, hand and finger(s), initial encounter (principal)
CPT/HCPCS: 99199

== ENCOUNTER 2024-07-18 13:49 | Emergency (ER) | payer OTHER, SELFPAY ==
--- NOTE | ~2024-07-18 | CT_ITS ---
EXAMINATION: CT brain wo con DATE: 07/18/2024 16:46 INDICATION: object struck head 1.5 wks ago, on anticoag . TECHNIQUE: Computed tomography (CT) of the head was performed without intravenous contrast. The mA wa s adjusted according to patient size. Iterative reconstruction technique was employed. The dose-lengt h product was 605.33 mGy-cm. COMPARISON: MR brain 02/24/2018. FINDINGS: No acute intracranial hemorrhage or extra-axial fluid collection. No hydrocephalus, mass, or herniation. No acute ischemic infarct. Unremarkable dural venous sinus attenuation. No acute osseous abnormality. The aerated spaces are clear. IMPRESSION: No acute intracranial process. Reviewed, dictated and finalized at location K.
--- NOTE | ~2024-07-18 | US_ITS ---
EXAMINATION: US venous doppler LE RT DATE: 07/18/2024 16:00 INDICATION: Lower limb pain swelling and redness, hx DVT; missed anticoagulation . TECHNIQUE: Grayscale images without and with compression and Doppler images of the right lower extrem ity veins were obtained. COMPARISON: None FINDINGS: Right peroneal vein not compressible, increased diameter, no flow. The right common femoral vein, pro soo (deep) femoral vein, femoral vein, popliteal vein, posterior tibial veins, gastrocnemius vein, and greater saphenous vein are patent. IMPRESSION: Acute right peroneal DVT. Otherwise patent right lower extremity veins. Reviewed, dictated and finalized at location K.
--- NOTE | ~2024-07-18 | CT_ITS ---
EXAMINATION: CT cervical spine wo con DATE: 07/18/2024 16:45 INDICATION: object fell on head 1.5 weeks ago TECHNIQUE: Computed tomography (CT) of the cervical spine was performed with intravenous contrast. Au tomated exposure control and iterative reconstruction technique were employed. The dose-length produc t was 543.21 mGy-cm. COMPARISON: None. FINDINGS: Vertebral Body Alignment: Intact. Craniocervical and atlantoaxial alignment: Mild degenerative change. Alignment intact. Osseous structures/fracture: No evidence of a lytic or blastic process in the visualized spine. No e vidence of acute fracture. Cervical soft tissues: The paraspinal soft tissues planes are maintained. Degenerative changes: No significant degenerative changes. IMPRESSION: No acute fracture or traumatic malalignment in the cervical spine. Reviewed, dictated and finalized at location K.
--- OUTSIDE RECORDS SUMMARY | 2024-07-18 13:52 | XMS_ITS | Continuity of Care Document ---
Author Organization [facility] Address [address] [place] [address] Phone Care Team Providers Care Jewelry Internship Name Role Phone Talon Ambrose Unavailable Unavailable Advance Directives Directive Yes / No Effective Date File Name No Information Encounters Encounter Description Practice Location Reason(s) For Visit Diagnoses Date Provider Providers Copied on Encounter [facility], [address] [place] [address], [facility], tel:[phone] *Ilya [facility] No Information Arnol Hanley. [address] [place] [address], [facility], [place]. tel:[phone] Family History Family Member Type Diagnosis Age [...]
--- OUTSIDE RECORDS SUMMARY | 2024-07-18 13:52 | XMS_ITS | CONTINUITY OF CARE DOCUMENT ---
Author Name ren mcclure Address Unknown Organization [facility] Address [address] [place] [address] Phone [phone] Care Team Providers Care Ticket Attendant Name Role Phone Adan Peñaloza MD Unavailable DINAH FRITZ MD Unavailable WOJCIECH FLORES MD Unavailable INSURANCE PROVIDERS Payer name Policy type / Coverage type [place] red libertarian ID [facility] [employer] 9 [id number]
--- OUTSIDE RECORDS SUMMARY | 2024-07-18 13:53 | XMS_ITS | Referral Summary ---
Author Organization [facility] Address [address] [place] [address] Care Team Providers Care Machine Cleaner Name Role Phone Unknown, Notinfile Unavailable Unavailable Nga Hernandez MD Primary Care Provider [phone] Allergies No known active allergies Medications metoclopramide [...] tablet TAKE 1 TABLET BY MOUTH DAILY [id number], THEN INCREASE TO 2 TABLETS DAILY 2 [...] on file Legal Sex Male 11:35 PM ACCOUNTING MANAGER Gender Identity Not on file Sexual Orientation Not on file Last Filed Vital Signs Vital Sign Reading Time Taken Comments Blood Pressure 103/63 06/27/2018 12:30 AM ACCOUNTING MANAGER Pulse 62 06/27/2018 12:30 AM ACCOUNTING MANAGER Temperature 36.6 C (97.9 F) 06/26/2018 8:19 PM ACCOUNTING MANAGER Respiratory Rate 16 06/27/2018 12:30 AM ACCOUNTING MANAGER Oxygen Saturation 100% 06/27/2018 12:30 AM ACCOUNTING MANAGER Inhaled Oxygen Concentration - - Weight 90.7 kg (200 lb) 06/26/2018 8:19 PM ACCOUNTING MANAGER Height 175.3 cm (5' 9 ) 06/26/2018 8:19 PM ACCOUNTING MANAGER Body Mass Index 29.53 06/26/2018 8:19 PM ACCOUNTING MANAGER Plan of Treatment Not on file Insurance [facility] [place] [address] CIGNA ALLEGIANCE CIGNA ALLE[facility]ANCE [facility]PP[facility] Address: [facility] [id number] [place] [address] Care Teams Machine Cleaner Relationship Specialty [place] [address] [place] [address] PCP - General Internal Medicine 12/16/23 Unknown, Notinfile 11/26/21
--- OUTSIDE RECORDS SUMMARY | 2024-07-18 13:53 | XMS_ITS | Clinical Summary ---
Author Organization [facility] Address [address] [place] [address] Care Team Providers Care Lure Maker Name Role Phone Unknown, Notinfile Unavailable Unavailable Nga Hernandez MD Primary Care Provider [phone] Allergies No known active allergies Medications metoclopramide [...] tablet TAKE 1 TABLET BY MOUTH DAILY [id number], THEN INCREASE TO 2 TABLETS DAILY 2 [...] vein thrombosis) in x5 PE (pulmonary thromboembolism) (HCC) x2 Social History Tobacco Use Types Packs/Day Years Used Date Smoking Tobacco: Former Cigarettes Tobacco Cessation:Counseling Given: Not Answered Sex and Gender Information Value Date Recorded Sex Assigned at Not on file Legal Sex Male 11:35 PM BASE PLY HAND Gender Identity Not on file Sexual Orientation Not on file Obstetrics History Last Filed Vital Signs Vital Sign Reading Time Taken Comments Blood Pressure 103/63 06/27/2018 12:30 AM BASE PLY HAND Pulse 62 06/27/2018 12:30 AM BASE PLY HAND Temperature 36.6 C (97.9 F) 06/26/2018 8:19 PM BASE PLY HAND Respiratory Rate 16 06/27/2018 12:30 AM BASE PLY HAND Oxygen Saturation 100% 06/27/2018 12:30 AM BASE PLY HAND Inhaled Oxygen Concentration - - Weight 90.7 kg (200 lb) 06/26/2018 8:19 PM BASE PLY HAND Height 175.3 cm (5' 9 ) 06/26/2018 8:19 PM BASE PLY HAND Body Mass Index 29.53 06/26/2018 8:19 PM BASE PLY HAND Plan of Treatment Health Maintenance Due Date Last Done Comments Colon Cancer Screening-Colonoscopy 1976 Depression Screening 1976 Regular Well Visit/Exam 18-64 1994 Pneumococcal vaccine <65 (1 of 2 - PCV) 08/30/1995 Covid-19 Vaccine (2023-2 5 season) 2023 04/23/2021, 04/12/2021, 06/22/2020, Additional history exists Influenza Vaccine (#1) 2023 , 12/29/2017, 01/23/2017, Additional history exists DTaP/Tdap/Td Vaccine (4 - Td or Tdap) 07/20/2028 07/20/2018, 12/07/2014, 04/21/2008 Hepatitis C Screening Completed 02/01/2022 Insurance [facility] CHOICE PLUS [facility] HMO/PPO Address: [address] [address] [place] [address] CIGNA ALLEGIANCE C[employer] ALLEGIANCE Care Teams Lure Maker Relationship Specialty [place] [address] [place] [address] PCP - General Internal Medicine 12/16/23 Unknown, Notinfile 11/26/21
--- OUTSIDE RECORDS SUMMARY | 2024-07-18 13:53 | XMS_ITS | Clinical Summary ---
Author Organization [facility] Address [address] [address] Phone Care Team Providers Care Per Diem Physical Therapist Name Role Phone Tello Denton MD Primary Care Provider Allergies No known active allergies Medications hydroCHLOROthiazi de 12.5 MG Tablet Take 1 tablet every [...] TO 2 PATCHES EVERY DAY NEEDED Active HYDROcodone-aceta minophen (NORCO) 10-325 MG Tablet TAKE 1 TABLET BY MOUTH EVERY 8 TO 12 HOURS NEEDED FOR LOWER BACK PAIN Active pantoprazole (PROTONIX) 40 MG Tablet Delayed Response take 1 tablet by mouth every day as directed 12/12/19 22 Active Vyvanse 60 MG CapsuleIndication s:Attention Deficit Hyperactivity Disorder Take 1 Capsule by mouth daily. Indications: Attention Deficit Hyperactivity Disorder 30 Capsule 04/16/20 24 Active Vyvanse 60 MG CapsuleIndication s:Attention Deficit Hyperactivity Disorder Take 1 Capsule by mouth daily. Indications: Attention Deficit Hyperactivity Disorder 30 Capsule 03/19/20 24 Active Vyvanse 60 MG CapsuleIndication s:Attention Deficit Hyperactivity Disorder Take 1 Capsule by mouth daily. Indications: Attention Deficit Hyperactivity Disorder 30 Capsule 02/20/20 24 Active ALPRAZolam (XANAX) 0.5 MG TabletIndications :Generalized anxiety disorder Take 1 Tablet by mouth 3 times daily as needed for Anxiety. 90 Tablet 3 05/06/19 25 Active lamoTRIgine (LaMICtal) 100 MG Tablet Take 1 Tablet by mouth daily. 30 Tablet 3 05/06/19 25 Active Lisdexamfetamine Dimesylate 60 MG CapsuleIndication s:Attention Deficit Hyperactivity Disorder Take 1 Capsule by mouth daily for 30 days. Indications: Attention Deficit Hyperactivity Disorder 30 Capsule 06/22/19 25 025 Active Lisdexamfetamine Dimesylate 60 MG CapsuleIndication s:Attention Deficit Hyperactivity Disorder Take 1 Capsule by mouth daily for 30 days. Indications: Attention Deficit Hyperactivity Disorder 30 Capsule 07/20/19 25 025 Active prazosin (MINIPRESS) 1 MG Capsule Take 1 Capsule by mouth nightly. Uses PRN 30 Capsule 2 05/09/19 25 Active Lisdexamfetamine Dimesylate 60 MG CapsuleIndication s:Attention Deficit Hyperactivity Disorder Take 1 Capsule by mouth daily for 30 days. Indications: Attention Deficit Hyperactivity Disorder 30 Capsule 05/24/19 25 025 Active Problems Problem Noted Date Diagnosed Date Attention deficit hyperactivity disorder, combin ed type 01/28/2023 Generalized anxiety disorder 05/10/2021 Mixed bipolar I disorder 12/21/2020 Encounters Date Type Department Care Team Description 05/09/2024 Refill [facility] [address] [place] [address] [phone] Mallika Jung APRN, CNP Medication Refill 05/06/2024 11:00 AM THERMAL SURFACING MACHINE OPERATOR Office Visit [facility] [address] [place] [address] [phone] Mallika Jung APRN, CNP Mixed bipolar I disorder (HCC) (Primary Dx); Generalized anxiety disorder; Attention deficit hyperactivity disorder (ADHD), predominantly inattentive type 05/06/2024 Travel from Last 3 Months Family History Medical [...] Comments Blood Pressure 146/83 05/06/2024 11:21 AM THERMAL SURFACING MACHINE OPERATOR Pulse 93 05/06/2024 11:11 AM THERMAL SURFACING MACHINE OPERATOR Temperature - - Respiratory Rate 20 05/06/2024 11:11 AM THERMAL SURFACING MACHINE OPERATOR Oxygen Saturation 100% 05/06/2024 11:11 AM THERMAL SURFACING MACHINE OPERATOR Inhaled Oxygen Concentration - - Weight 97.5 kg (215 lb) 05/06/2024 11:11 AM THERMAL SURFACING MACHINE OPERATOR Height 175.3 cm (5' 9 ) 05/06/2024 11:11 AM THERMAL SURFACING MACHINE OPERATOR Body Mass Index 31.75 05/06/2024 11:11 AM THERMAL SURFACING MACHINE OPERATOR Plan of Treatment Upcoming Encounters Date Type Department Care Team (Late st Contact Info) Description 08/05/2024 10:45 AM CDT Office Visit [facility] [address] [place] [phone] Mallika Jung, IN STORE MARKETING ASSOCIATE, RUBBING BED OPERATOR [address] [place] [address] [phone] (Work) Health Maintenance Due Date Last [...] patient's age to complete this topic Insurance [facility] Care Teams Per Diem Physical Therapist Relationship Specialty Start Date End Date Tello Denton MD [address] [place] [address] PCP - General Internal Medicine 01/30/24
--- OUTSIDE RECORDS SUMMARY | 2024-07-18 13:53 | XMS_ITS | Data Portability ---
Author Organization [facility], Main Office Address [address] [place] [address] Assessment No assessment recorded. Plan of Treatment Reminders Order Date Submit Date Provider Last Modified By Organization Details Last Modified Time Details Appointments None recorded . Lab urinalys is, dipstick 2022 023 [email or web address] [facility], [address] [facility] [address], [place], [address], 3 11:22:15 CBC 2022 023 [facility] (Lab), [address] [place], [address], 3 14:17:43 CMP, serum or plasma 2022 023 [facility] (Lab), [address] [place], [address], 3 14:17:43 PSA, total, serum or plasma [address] [facility] (Lab), [address] [place], [address], 4 12:41:31 testoste matthew, free + total, serum 2022 023 [facility] (Lab), [address] [place], [address], 3 13:23:36 estradio l, serum 2022 023 [facility] (Lab), [address] [place] [address] Ave, [place], [address], 13:23:37 Referral None recorded . Procedures None recorded . Surgeries None recorded . Imaging US, bladder 2022 023 [email or web address] [facility] [place], [address] [place] [address]e [address], [place], [address], 11:25:38 Medication Orders None recorded . Patient TargetsNo targets recorded. Patient InstructionsNo instructions recorded. Reason for Referral None Reported. Results Created Date Observation Date Name Description Value Unit Range Abnormal Flag Note LastModifiedBy Organization Detail LastModifiedTime 03/08/2003/08/2021 urina lysis , dipst ick Leukocytes (reference range: negative sesar/ l) Negati ve Not Available [facility], [address], [address], 03/08/2021 11:19:45 03/08/20 21 03/08/2021 urina lysis , dipst ick Nitrite (reference rage: negative mg/dl) negati ve Not Available [facility], [address], 03/08/2021 11:19:45 03/08/20 21 03/08/2021 urina lysis , dipst ick Urobilinogen (reference range: 0.2-1 mg/dl) 0.2 Not Available Z_[facility]_[address], [address], [address], 03/08/2021 11:19:45 03/08/20 21 03/08/2021 urina lysis , dipst ick Protein (reference range: negative mg/dl) Negati ve Not Available [facility] [place] [address], [address], [place], [address], 03/08/2021 11:19:45 03/08/20 21 03/08/2021 urina lysis , dipst ick pH (reference range: 5-7) 6.0 Not Available [address], [address], 03/08/2021 11:19:45 03/08/2003/08/2021 urina lysis , dipst ick Blood (reference range: negative Robin/ l) Small Not Available [address], [address], 03/08/2021 11:19:45 03/08/20 21 03/08/2021 urina lysis , dipst ick Specific Chilton (reference range: 1.005-1.030) 1.025 Not Available [address], [address], 03/08/2021 11:19:45 03/08/20 21 03/08/2021 urina lysis , dipst ick Ketone (reference range: negative mg/dl) Negati ve Not Available [address], [address], 03/08/2021 11:19:45 03/08/20 21 03/08/2021 urina lysis , dipst ick Bilirubin (reference range: negative mg/dl) Small Not Available [address], [address], 03/08/2021 11:19:45 03/08/2003/08/2021 urina lysis , dipst ick Glucose (reference range: negative mg/dl) Negati ve Not Available [address], [address], 03/08/2021 11:19:45 03/08/20 21 03/08/2021 urina lysis , dipst ick Appearance Clear Not Available [address], [address], 03/08/2021 11:19:45 03/08/2003/08/2021 urina lysis , dipst ick Color Yellow Not Available [address], [address], 03/08/2021 11:19:45 03/29/20 21 03/29/2021 urina lysis , dipst ick Leukocytes (reference range: negative sesar/ l) Negati ve Not Available [address], [address], 03/29/2021 10:47:02 03/29/20 21 03/29/2021 urina lysis , dipst ick Nitrite (reference rage: negative mg/dl) negati ve Not Available [address], [address], 03/29/2021 10:47:02 03/29/20 21 03/29/2021 urina lysis , dipst ick Urobilinogen (reference range: 0.2-1 mg/dl) 0.2 Not Available [address], [address], 03/29/2021 10:47:02 03/29/20 21 03/29/2021 urina lysis , dipst ick Protein (reference range: negative mg/dl) Negati ve Not Available [address], [address], 03/29/2021 10:47:02 03/29/20 21 03/29/2021 urina lysis , dipst ick pH (reference range: 5-7) 5.5 Not Available [place] [address], [place], [address], 03/29/2021 10:47:02 03/29/2003/29/2021 urina lysis , dipst ick Blood (reference range: negative Robin/ l) Small Not Available [address], [address], 03/29/2021 10:47:02 03/29/20 21 03/29/2021 urina lysis , dipst ick Specific [place] (reference range: 1.005-1.030) 1.020 Not Available [address], [address], 03/29/2021 10:47:02 03/29/20 21 03/29/2021 urina lysis , dipst ick Ketone (reference range: negative mg/dl) Negati ve Not Available [address], [address], 03/29/2021 10:47:02 03/29/20 21 03/29/2021 urina lysis , dipst ick Bilirubin (reference range: negative mg/dl) Small Not Available Z_[facility]_[address], [address] , [place], [address], 03/29/2021 10:47:02 03/29/20 21 03/29/2021 urina lysis , dipst ick Glucose (reference range: negative mg/dl) Negati ve Not Available [facility], [place] [address], [place], [address], 03/29/2021 10:47:02 03/29/20 21 03/29/2021 urina lysis , dipst ick Appearance Clear Not Available [facility], [place] [address], [place], [address], 03/29/2021 10:47:02 11/29/19 23 11/28/2022 urina lysis , dipst ick Leukocytes (reference range: negative sesar/ l) Negati ve Not Available [facility] [address], [place], [address], 11/28/2022 11:07:19 11/29/19 23 11/28/2022 urina lysis , dipst ick Nitrite (reference rage: negative mg/dl) negati ve Not Available [facility] [address], [place], [address], 11/28/2022 11:07:19 11/29/19 23 11/28/2022 urina lysis , dipst ick Urobilinogen (reference range: 0.2-1 mg/dl) 0.2 Not Available [facility] [address], [place], [address], 11/28/2022 11:07:19 11/29/1911/28/2022 urina lysis , dipst ick Protein (reference range: negative mg/dl) Negati ve Not Available [facility] [address], [place], [address], 11/28/2022 11:07:19 11/29/19 23 11/28/2022 urina lysis , dipst ick pH (reference range: 5-7) 5.5 Not Available s_ gmg [facility] [address], [place], [address], 11/28/2022 11:07:19 11/29/1911/28/2022 urina lysis , dipst ick Blood (reference range: negative Robin/ l) Negati ve Not Available s_gmg [facility] [address] [place] [address] [address], [place], [address], 11/28/2022 11:07:19 11/29/1911/28/2022 urina lysis , dipst ick Specific [place] (reference range: 1.005-1.030) 1.025 Not Available s _[facility] [address], [place], [address], 11/28/2022 11:07:19 11/29/19 23 11/28/2022 urina lysis , dipst ick Ketone (reference range: negative mg/dl) Negati ve Not Available s_gmg [facility] [address] [place] [address] [address], [place], [address], 11/28/2022 11:07:19 11/29/19 23 11/28/2022 urina lysis , dipst ick Bilirubin (reference range: negative mg/dl) Negati ve Not Available s_[facility] [address] [place] [address] [address], [place], [address], 11/28/2022 11:07:19 11/29/19 23 11/28/2022 urina lysis , dipst ick Glucose (reference range: negative mg/dl) Negati ve Not Available [facility] [place] [address] [address], [place], [address], 11/28/2022 11:07:19 11/29/19 23 11/28/2022 urina lysis , dipst ick Appearance Clear Not Available [facility] [place] [address] [place] [address], [place], [address], 11/28/2022 11:07:19 11/29/19 23 11/28/2022 urina lysis , dipst ick Color Yellow Not Available [facility] [place] [address] [place] [address], [place], [address], 11/28/2022 11:07:19 01/09/20 21 01/03/2021 sleep study , basel ine diagn ostic polys omnog eligh* No observ ation record ed. [id number] Not Available 06/19/2022 19:12:38 03/08/20 21 03/08/2021 US, bladd er No observ ation record ed. [id number] [facility] [place] [address] [facility], [address], [place], [address], 06/19/2022 19:12:38 11/29/19 23 11/28/2022 US, bladd er No observ ation record ed. [email or web address] [facility] [place] [address] [place] [address], [place], [address], 11/29/2022 14:57:39 Result Notes None recorded. Problems Name Problem SNOMED Code Status Onset Date Resolution Date Notes Provider Name and Address Organization Details Recorded Time Venous thrombosis 012230740 Active Not Available [facility] 03/01/202 3 19:12:04 Testicular hypofuncti on 350010814 Active Not Available [facility] 3 19:12:04 Chest pain 28972530 Active Not Available [facility] 3 19:12:04 Current tear of medial cartilage AND/OR meniscus of knee Active Not Available [facility] 3 19:12:04 Hypertensi ve disorder 41966907 Completed Not Available [facility] 3 19:12:04 Osteoarthr itis 641573587 Active Not Available [facility] 3 19:12:04 Viral hepatitis C 05888360 Active Not Available [facility] 3 19:12:04 Hyperlipid emia 12686906 Active Not Available [facility] 3 19:12:04 Essential hypertensi on 00263791 Active Not Available [facility] 3 19:12:04 Sexually transmitte d infectious disease 2878596 Active Not Available [facility] 3 19:12:04 Pain in limb 76774168 Active Not Available [facility] 3 19:12:04 Male hypogonadi sm 88866564 Active 2022 Liv clarke, [place] [employer] [facility] 3 11:19:07 Notes:Medical History: Subst ance use Bipolar depression/Anxiety/ADHD Migraine headaches Rhinitis Bruxism Obesity with mild OSAHS, AHI = 1, 01/03/21 Hypertension Hyperlipidemia Hepatitis C Hypogonadism PLMD 2 PE/ 5 DVT on Xarelto Osteoarthritis Procedure History: Bilateral Lasik eye surgery 2019 Problem Notes None recorded. Procedures Surgical History None recorded. Imaging Results Imaging Date Name Status LastModified by [facility]iz [facility] Details LastModified Time 01/03/2021 sleep study, baseline diagnostic polysomnogram* completed [id number] Information not available 06/19/2022 19:12:38 03/08/2021 US, bladder completed [id number] [facility] [address], [address], [place], [address], 06/19/2022 19:12:38 11/28/2022 US, bladder completed [email or web address] [facility] [place] [address] [facility] [address], [place], [address], 11/29/2022 14:57:39 Procedure Notes None recorded. Medical [...] DAY NEEDED, MUST LAST 30 DAYS (FILL 11/15) 12/18 completed Not Available Not Available Not [...] Not Available Not Available Not Available Fluvirin 1416-9316 45 mcg (15 mcg x 3)/0.5 mL [...] Not Available Not Available Not Available Fluvirin 4131-4591 45 mcg (15 mcg x 3)/0.5 mL [...] saturation in Arterial blood by Pulse oximetry Pain severity - 0-10 verbal numeric rating [Score] - Reported Heart rate Respiratory rate Body temperature Body weight Systolic blood pressure Diastolic blood pressure Provider Name and Address Organization Details Last Updated DateTime 1 35.9 kg/m2 75 /min 175.26 cm 97 % 97 % 4 75 /min 18 /min 98.6 [degF] 788254. 66 g 122 mm[Hg] 92 mm[Hg] Not Available [facility] 3 19:11:59 Date Recorded Body mass index (BMI) Body height Oxygen saturation Oxygen saturation in Arterial blood by Pulse oximetry Body temperature Body weight Systolic blood pressure Diastolic blood pressure Provider Name and Address Organization Details Last Updated DateTime 1 33.5 kg/m2 175.26 cm 97 % 97 % 98.8 [degF] 785391. 47 g 153 mm[Hg] 89 mm[Hg] Not Available [facility] 3 19:11:59 Date Recorded Body mass index (BMI) Body height Body weight Provider Name and Address Organization Details Last Updated DateTime 03/29/2021 33.5 kg/m2 175.26 cm 127620.47 g Not Available [facility] 06/19/2022 19:12:00 Date Recorded Body weight Body temperature Oxygen saturation Oxygen saturation in Arterial blood by Pulse oximetry Heart rate Systolic blood pressure Diastolic blood pressure Provider Name and Address Organization Details Last Updated DateTime 3 384782. 09 g 97.9 [degF] 98 % 98 % 83 /min 139 mm[Hg] 93 mm[Hg] NATY Rivero [place] 3 11:06:54 Date Recorded Body mass index (BMI) Body height Provider Name and Address Organization Details Last Updated DateTime 11/28/2022 36.9 kg/m2 175.26 cm Nga Jones [place] 11/28/2022 11:05:40 Social History None recorded. Functional Status None recorded. Mental Status None recorded. Family History Nothing Reported. Medical History No medical history recorded. Immunizations Vaccine Type Date Status Note Provider Nam e and Address Organization Details Recorded Time influenza, unspecified formulation 3 completed Not Available [facility] 06/19/2022 19:12:36 tetanus toxoid, unspecified formulation 1 completed Not Available [facility] 06/19/2022 19:12:36 Influenza, high-dose, trivalent, PF 3 completed Not Available [facility] 06/19/2022 19:12:36 Influenza, high-dose, trivalent, PF 3 completed Not Available [facility] 06/19/2022 19:12:36 Past Encounters Encounter ID Performer Location Encounter Start Date Encounter Closed Date Diagnosis/Indication Diagnosis SNOMED-CT Code Diagnosis ICD10 Code Diagnosis Note [id number] [facility] [address] [address] 11/30/2020 00:00:00 11/30/2020 12:27:55 [id number] [facility] [address] [place] [id number] 03/08/2021 00:00:00 03/08/2021 12:15:21 [id number] [facility] [address] [place] [address] 03/29/2021 00:00:00 03/29/2021 11:26:17 [id number] Primo Jerome MD [facility] [address] [place] [id number] 11/28/2022 10:53:19 11/28/2022 11:25:37 Male hypogonadism 42076478 E29.1 check labs. discussed need for TRT. follow up in 2 week.s Health Concerns Section Related Observation LastModified by Organization Detai ls LastModified Time None Recorded Concern Status LastModified by Organization Details LastModified Time None Recorded Advance Directives Directive None Recorded Payers Encounter Date Sequence Insurance Name Policy Number Policy Kaba Covered Member ID Kaba Member ID Guarantor Name 11/28/2022 1 [facility] [employer] (PPO) Homero Arechiga [id number] Homero Arechiga Notes Date Note Type Note [...] in the urine. Not Available [place] [facility] 03/08/2021 12:15:21 11/28/2022 text/html 47 yo male with hypogonadism. He went off Testosterone to have a baby and was put on Clomid. They were unsuccessful. He had no sex drive so they did not have sex. He as been off Clomid for 6 weeks. He is on Cialis. Primo Jerome MD [address] [place] [address], [facility] [address], [place], [address], [place] [employer] 11/28/2022 11:32:20
--- OUTSIDE RECORDS SUMMARY | 2024-07-18 13:53 | XMS_ITS | Data Portability ---
Author Organization [place] - [facility] [place] Address [address] [facility] [address] [place] [address] Assessment Encounter Date Assessment Date Assessment LastModified [...] By Organization Details Last Modified Time 09/11/2021 [id number] epilepsy: care instructions [email or web address] Not available 09/11/2021 [...] Pt also agrees that me, and the [facility] Team are my treating physicians and that [...] answering of all questions. Attending Attestation Note I reviewed the chart and I agree with PA note and management plan. I was available via text/email/phone/Everyone Counts during the patient's evaluation. I reviewed the patient's pertinent studies (labs/x-rays/EKG/e tc.). Not available 09/13/2021 01:32:58 09/14/2021 [id number] epilepsy: care instructions [email or web address] Not available 09/14/2021 [...] Pt also agrees that me, and the [facility] Team are my treating physicians and that [...] answering of all questions. Attending Attestation Note I reviewed the chart and I agree with PA note and management plan. I was available via text/email/phone/Everyone Counts during the patient's evaluation. I reviewed the patient's pertinent studies (labs/x-rays/EKG/e tc.). Not available 09/18/2021 05:31:44 06/11/2022 [id number] I have discussed the risks and benefits [...] Pt also agrees that me, and the [facility] Team are my treating physicians and that [...] SNOMED-CT Code Diagnosis ICD10 Code Diagnosis Note [id number] MD [facility] [address] [place] [address],[address] [place] [address] 09/11/2021 15:21:21 09/11/2021 15:45:14 Chronic hepatitis C 679610193 B18.2 Seizure disorder 4787865 02 G40.909 [id number] MD [facility] [address] [facility],[address] [place] [address] 09/14/2021 10:55:45 09/14/2021 13:37:27 Chronic hepatitis C 298955955 B18.2 Seizure disorder 9279074 02 G40.909 [id number] Tray Isaacs MD [facility] [address] [place] [address] 06/11/2022 14:07:25 10/08/2022 19:08:18 Seizure disorder 861648366 G40.909 Chronic hepatitis C 1283 03031 B18.2 Health Concerns Section Related Observation LastModified by Organization Detai ls LastModified Time None Recorded Concern Status LastModified by Organization Details LastModified Time None Recorded Advance Directives Directive None Recorded Payers Encounter Date Sequence Insurance Name Policy Number Policy Kaba Covered Member ID Kaba Member ID Guarantor Name 09/11/2021 1 [facility] [id number] Homero Arechiga [id number] Homero Arechiga 09/14/2021 1 [facility] [id number] Homero Arechiga [id number] Homero Arechiga 06/11/2022 1 [facility] Rosario Arechiga [id number] Homero Are[employer] Notes Date Note Type Note [...] C AND SEIZURES Tray Isaacs MD [address], [place], [address], [facility] 09/13/2021 01:33:03 09/14/2021 text/html The [...] use of medical cannabis. Tray Isaacs MD [address], [address], [place], [address], [facility] - [facility] 09/18/2021 05:31:51 06/11/2022 text/html The patient woul d like to discuss medications, the disease, and how to handle it. Pt would also like to discuss alternative treatments to this condition. Pt was referred here for further evaluation and treatment if necessary. Patient has a diagnosis of qualifying condition - Hepatitis and Seizure Disorder Tray Isaacs MD [address], [address], [place], [address], [facility] - [facility] 10/08/2022 19:08:17
--- OUTSIDE RECORDS SUMMARY | 2024-07-18 13:53 | XMS_ITS | Clinical Summary ---
Author Organization [facility] Address [address] [facility] [place] [address] Care Team Providers Care Forensic Medical Examiner Name Role Phone Nga Hernandez MD Primary Care Provider [phone] Allergies Active Allergy Reactions Criticality Noted Date Comments Semaglutide (Weight Loss) Abdominal Pain Low 01/09/2024 Elevation in lipase. Mild pancreatitis suspected. Medications erenumab-aooe (Aimovig Autoinjector) 140 mg/mL Auto-Injector Inject 140 mg by subcutaneous injection one time only. 2 Active HYDROcodone-toma taminophen (NORCO) 10-325 mg Tablet Take 1 Tablet by mouth every 8 hours as needed. Pt takes 3 times a day 2 Active valACYclovir (VALTREX) 1 gram tablet Take 1,000 mg by mouth daily. 2 Active lisdexamfetamin e (Vyvanse) 60 mg capsule Take 60 mg by mouth daily in the morning. 2 Active testosterone cypionate (DEPO-TESTOSTER ONE) 200 mg/mL Oil Inject 200 mg by intramuscular injection every 2 weeks. Pt will restart after seeing urologist Active lidocaine (LIDODERM) 5 % Adhesive Patch, Medicated Apply 1 Patch to affected area 1 time daily as needed. Pt uses as needed states maybe monthly 2 Active rimegepant (Nurtec ODT) 75 mg Tablet, Rapid Dissolve Take 50 mg by mouth 1 time daily as needed. As needed with migraine Active betamethasone, augmented (DIPROLENE-AF) 0.05 % CreamIndication s:Eczema, unspecified type Apply to affected area 2 times daily. 60 Gram 3 Active lamoTRIgine (LaMICtal) 100 mg tablet Take 100 mg by mouth daily. Active cyclobenzaprine (FLEXERIL) 10 mg tablet Take 1 Tablet by mouth 2 times daily. 4 Active mirabegron (MYRBETRIQ) 50 mg Extended Release 24 hour tabletIndicatio ns:Urinary frequency,Noctu domingo Take 1 Tablet (50 mg) by mouth daily. 30 Tablet 1 4 Active ALPRAZolam (XANAX) 0.25 mg tablet Take 1 Tablet by mouth 3 times daily. 4 Active pantoprazole sodium (PANTOPRAZOLE ORAL) Take by mouth. Activ e folic acid/multivit-m in/lutein (CENTRUM SILVER ORAL) Take by mouth. Activ e pantoprazole (PROTONIX) 40 mg Tablet, Delayed Release (E.C.) take 1 tablet by mouth every day as directed 90 Tablet 3 4 Active fluticasone propionate (FLONASE) 50 mcg/spray [place], Suspension nasal inhalerIndicati ons:Acute non-recurrent maxillary sinusitis Administer 2 Sprays in each nostril daily. 16 Gram 5 Active Xarelto 20 mg TabletIndicatio ns:History of pulmonary embolism TAKE 1 TABLET BY MOUTH DAILY WITH SUPPER. 90 Tablet 1 5 Active hydroCHLOROthia zide 25 mg tabletIndicatio ns:Hypertension , unspecified type Take 1 Tablet (25 mg) by mouth daily. 30 Tablet 5 Active triamcinolone acetonide (KENALOG) 0.1 % Cream Apply to affected area 2 times daily. 15 Gram 5 Active Active Problems Problem Noted Date Diagnosed Date Hx of migraine headaches 12/13/2022 Eczema 12/13/2022 Mixed anxiety and depressive disorder 12/12/2022 History of pulmonary embolism 12/12/2022 Overview (12/12/2022): two episodes. 2000 after 11 months interferon for Hep C. 2nd occurence 2010 - spontaneous. Attention deficit disorder (ADD) in adult 2022 Spondylosis of lumbar region without myelopathy or radiculopathy 12/12/2022 Current every day vaping 12/12/2022 History of hepatitis C 12/12/2022 Overview (12/12/2022): levels undeterctable since treatment in 1999. Hypertensive disorder 02/01/2022 Hypogonadism in male 02/01/2022 Overactive bladder 12/21/2021 Resolved Problems Problem Noted Date Diagnosed Date Resolved Date Pulmonary embolism 08/01/2014 Encounters Date Type Department Care Team Description 06/29/2024 External Device Data [facility] ABSTRACTION Provider, Abstract 06/29/2024 External Device Data [facility] ABSTRACTION Provider, Abstract 06/26/2024 External Device Data [facility] ABSTRACTION Provider, Abstract 06/25/2024 External Device Data [facility]STRACTION Provider, Abstract 06/15/2024 External Device Data [facility] ABSTRACTION Provider, Abstract 05/25/2024 10:30 AM FURNACE LINER Office Visit [facility] [place] [address] [place] [address] Nga Hernandez MD Hypertension, unspecified type (Primary Dx); Skin lesion; Sebaceous cyst; Screening for condition; Left eye injury, initial encounter 05/12/2024 Refill [facility] [employer] [place] [address] [place] [id number] Nga Hernandez MD 04/27/2024 1:40 PM FURNACE LINER Procedure visit [facility] [place] [address] [place] [phone] Issue of repeat prescription (Primary Dx) 04/26/2024 1:30 PM FURNACE LINER Video Visit [facility] [employer] [place] [address] [place] [phone] Isatu Lake, ROBERTA Acute non-recurrent maxillary sinusitis (Primary Dx); Current every day vaping 04/26/2024 Refill [facility] [place] [address] [place] [phone] Nga Hernandez MD History of pulmonary embolism 1999 and 2009. from Last 3 Months Immunizations Immunization Administration Dates Next Due INFLUENZA VACCINE TRIVALENT SPLIT VIRUS, (6 MOS UP), 0.5ML (PF), IM 01/21/2024 Family History Medical History Relation Name Comments Alcohol abuse Father Suicidality Father Arthritis Mother Diabetes Mother Relation Name Status Comments Daughter 1 Alive Daughter 2 Alive Daughter 3 Alive Daughter 4 Alive Daughter 5 Alive Father Half-Brother 1 Alive Half-Brother 2 Alive Maternal Grandfather Maternal Grandmother Alive Mother Alive Paternal Grandfather Paternal Grandmother Alive Son Alive Social History Tobacco Use Types Packs/Day Years Used Date Smoking Tobacco: Former Cigarettes Smokeless Tobacco: Never Tobacco Cessation:Counseling Given: No Alcohol Use Standard Drinks/Week Comments Never 0 (1 standard drink = 0.6 oz pur e alcohol) Sex and Gender Information Value Date Recorded Sex Assigned at Male 12/17/2022 7:29 PM CDT Legal Sex Male 2:53 PM CDT Gender Identity Male 12/17/2022 7:29 PM CDT Sexual Orientation Straight 12/17/2022 7: 29 PM CDT Last Filed Vital Signs Vital Sign Reading Time Taken Comments Blood Pressure 142/88 05/25/2024 10:42 AM FURNACE LINER Pulse 97 05/25/2024 10:42 AM FURNACE LINER Temperature 36.6 C (97.9 F) 05/25/2024 10:42 AM FURNACE LINER Respiratory Rate 18 05/25/2024 10:42 AM FURNACE LINER Oxygen Saturation 98% 05/25/2024 10:42 AM FURNACE LINER Inhaled Oxygen Concentration - - Weight 96.4 kg (212 lb 9.6 oz) 05/25/2024 10:42 AM FURNACE LINER Height 175.3 cm (5' 9 ) 05/25/2024 10:42 AM FURNACE LINER Body Mass Index 31.4 05/25/2024 10:42 AM FURNACE LINER Plan of Treatment Health Maintenance Due Date Last Done Comments Pre-Diabetes and Diabetes Screening 1976 HEPATITIS B VACCINES (1 of 3 - 19+ 3-dose series) 08/30/1995 COLORECTAL SCREENING 2021 FIT-DNA Q 3 years 2021 FIT/FOBT Q 1 year 2021 Flex Sig/CT Colonography Q 5 years 2021 Preventative Visit- Commercial 04/21/2024 12/12/2022 Colorectal Cancer Screening 10/14/2024 Postponed from 2021 (Patient Refused) DTAP/TDAP/TD VACCINES (2 - T d or Tdap) 12/07/2024 12/07/2014 INFLUENZA VACCINE Completed 01/21/2024, 01/19/2013, 04/21/2012 Insurance RX [employer] RX Member Subscriber Plan / Payer (Ef fective 2021-Present) Name:Homero Arechiga Relation to Subscriber:Self Name:Homero Arechiga Subscriber ID:Not on file Payer ID:Not on file Group ID:[id number] Type:RX Commercial Address: [place], [place] ALLEGIANCE OPEN ACCESS ALLEGIANCE OPEN ACCESS Care Teams Forensic Medical Examiner Relationship Specialty Start Date End Date Nga Hernandez MD [address] [place] [id number] PCP - General Internal Medicine 09/16/23
[2024-07-18 14:06] VITALS: BP 136/75; PULSE 82; RESP 16; TEMP 36.7
--- NOTE | 2024-07-18 15:23 | ED_ITS ---
HPI - Extremity Problem General Chief complaint: Extremity Problem,Nontraumatic Stated complaint: Right leg redness/swelling/hardness-Hx of DVT/PE Time Seen by Provider: 07/18/24 15:17 Source: patient Mode of arrival: ambulatory Limitations: no limitations History of Present Illness HPI Narrative: Patient presents with concern for right leg redness/swelling/firmness. History of 5 DVTs and 2 PEs and had been on Xarelto but states he sets his pills in a pill container and the day he went to do that he had a friend murdered and another by suicide so he wasn't really paying attention and didn't include this medication in the pill canister. No shortenss of breath or chest pain. Has/had plenty of medication, not in need of refill. Has never seen a sawmill relief worker, unclear if his blood clots have been determined to be provoked or unprovoked and why it happens to him. He was first diagnosed with blood clots 20years ago after 11 months of treatment for hepatitis C using interferon and a medication that began with an R. States he previously had a drug problem. ALso notes that approximately 1.5 weeks ago he was moving an object (told RN it was grandfather's toolbox and tells me it was grandfather's cast iron horse figurine) from a shelf that fell and hit his head. He doesn't know if he was taking his anticoagulation at the time. States he has a history of skull fracture x3 but is concerned for the same as well as bleeding given risk factors. No subsequent seizures. He is concerned because his memory isn't great (but also hasn't been great prior to this he admits). His PCP is Clarke Desai through [employer] where he works. Related Data Home Medications ?Medication ?Instructions ?Recorded ?Confirmed ?Last Taken ?Type hydrocodone 10 mg-acetaminophen 1 tablet PO Q6H PRN 08/25/20 09/10/21 Unknown History 325 mg tablet rivaroxaban 20 mg tablet (Xarelto) 20 mg PO DAILY 08/25/20 09/10/21 Unknown History B-complex with vitamin C 1 tablet PO DAILY 06/22/21 09/10/21 Unknown History EXVA-8-ATY-xmwbxlqa-guthmhbn-jiagabf-bromelain-herbal cap PO 06/22/21 09/10/21 Unknown History 1,400 mg capsule desvenlafaxine succinate 100 mg 100 mg PO DAILY 06/22/21 09/10/21 Unknown History tablet,extended release 24 hr (Pristiq) lisdexamfetamine 60 mg capsule 60 mg PO DAILY 06/22/21 09/10/21 Unknown History (Vyvanse) testosterone enanthate 50 mg/0.5 50 mg subcut WEEKLY 06/22/21 09/10/21 Unknown History mL subcutaneous auto-injector clonazepam 1 mg tablet 1 mg PO BID 09/10/21 09/10/21 Unknown History semaglutide (weight loss) 0.25 0.25 mg subcut WEEKLY 10/14/23 Unknown History mg/0.5 mL subcutaneous pen injector (Wegovy) alprazolam 0.5 mg tablet (Xanax) 0.5 mg PO QHS PRN 05/05/24 05/05/24 Unknown History hydrochlorothiazide 25 mg tablet 25 mg PO DAILY 05/05/24 05/05/24 Unknown History hydrocodone 10 mg-acetaminophen 1 tablet PO QHS PRN 05/05/24 05/05/24 Unknown History 300 mg tablet lamotrigine 100 mg tablet 100 mg PO DAILY 05/05/24 05/05/24 Unknown History lisdexamfetamine 60 mg capsule 60 mg PO DAILY 05/05/24 05/05/24 Unknown History (Vyvanse) pantoprazole 20 mg tablet,delayed 20 mg PO QAM 05/05/24 05/05/24 Unknown History release rivaroxaban 20 mg tablet (Xarelto) 20 mg PO DAILY 05/05/24 05/05/24 Unknown History Allergies Allergy/AdvReac Type Severity Reaction Status Date / Time semaglutide (From Impliantgovy) AdvReac Intermediate Abdominal Verified 07/18/24 13:51 Pain PMFSH Past Medical History Medical History History of hepatitis C s/p treatment Pulmonary embolism Dvt femoral (deep venous thrombosis) Social History Social History Social History: vape Smoking status: Former smoker Alcohol intake: never Substance use: current Last use: states former Do You Feel Safe in your Home?: Yes Lack of Transportation: No Lack of Food: Sometimes True Current Housing: I Have Housing Concerned About Future Housing: No Difficulty Paying Gas/Electric Bills: YES Difficulty Paying for Meds: No Currently Unemployed: No Education: High School Diploma/GED Difficulty w/ Childcare or Family Care: No Occupation/Education: occupation Additional occupation/education comments: [employer] Ex[employer] 2 Narrative: GENERAL: Well-appearing, well-nourished, and in no acute distress. HEAD: Normocephalic, atraumatic. Patient complainign of a dent in lateral/parieto-occipital left but no palpable defect on exam. EYES: Non injected, non icteric ENT: Nares clear, no rhinorrhea or epistaxis. NECK: Supple. CHEST: Speaking in full sentences. No respiratory distress. HEART: Regular rate and rhythm. . ABDOMEN: Soft, nondistended. EXTREMITIES: Normal range of motion. Right lower extremity edema. Calf swelling/tenderness. Taut but compartments soft. Dilated venous structures and palpable cord. Warm and well perfused. SKIN: Warm, dry. No phlegmasa cerulea or dolens. NEURO: No focal deficits. Alert and oriented x3. Speaks clearly and without aphasia or dysarthria. Sensation intact throughout R leg. PSYCH: Normal mood and affect. Course Vital Signs Vital signs: Vital Signs Temperature 98.0 F 07/18/24 14:06 Pulse Rate 82 07/18/24 14:06 Respiratory Rate 16 07/18/24 14:06 Blood Pressure 136/75 07/18/24 14:06 Oxygen Delivery Room Air 07/18/24 14:06 Temperature 98 F 07/18/24 15:34 Pulse Rate 60 07/18/24 15:34 Respiratory Rate 18 07/18/24 15:34 Blood Pressure 126/74 07/18/24 15:34 Pulse Oximetry 98 07/18/24 15:34 Oxygen Delivery Room Air 07/18/24 14:06 MDM - Extremity (Nontraumatic) MDM Narrative Medical decision making narrative: Patient presents with concern for right leg redness/swelling/firmness. History of multiple DVTs and PEs. Prescribed Xarelto but accidentally not taking for at least the past 1 week. Also concerned because had head trauma when an object fell on his head approximately 1.5 weeks ago. In the emergency department they are afebrile with vital signs within normal limits. Normocytic anemia. Normal renal function. Patient already had re-started taking his Xarelto today. Patient given analgesic meds. Imaging as below. Not in need of Xarelto refill. Prescribed acetaminophen. Had considered opiate Rx but per review of SENIOR UX DESIGNER, already prescribed this. DIscharged in stable condition and advised to f/u with PCP. Differential Diagnosis Differential diagnosis: Likely herpes zoster, cellulitis, superficial thrombophlebitis, lower extremity edema, deep vein thrombosis of lower extremity and other (also c/f skull fx, intracranial hemorrhage; concussion/TBI) Lab Data 07/18/24 16:57 07/18/24 16:57 Labs: Lab Results 07/18/24 Range/Units 16:57 WBC 5.2 (4.5-10.0) K/mm3 RBC 4.43 L (4.6-6.20) M/mm3 Hgb 13.1 L (14.0-18.0) g/dL Hct 39.2 L (42.0-52.0) % MCV 88.5 (80-100) fl MCH 29.6 (26-34) pg MCHC 33.4 (32-36) g/dl RDW 12.0 (11.5-14.5) % Plt Count 205 (150-375) k/mm3 MPV 10.1 (7.4-10.4) fl Immature Gran % (Auto) 0.2 (0-0.5) % Neut % (Auto) 50.2 (45.5-73.1) % Lymph % (Auto) 38.6 (18.3-44.2) % [place] % (Auto) 7.1 (2.6-8.5) % Eos % (Auto) 3.3 (0-4.4) % Baso % (Auto) 0.6 (0.2-1.2) % Lymph # (Auto) 2.01 (0.9-3.2) K/mm3 [place] # (Auto) 0.4 (0.1-0.6) K/mm3 Eos # (Auto) 0.2 (0-0.3) K/mm3 Baso # (Auto) 0.0 (0.0-0.1) K/mm3 Abs Immat Gran (auto) 0.01 (0.00-0.031) K/mm3 Absolute Neuts (auto) 2.6 (1.3-6.7) K/mm3 Absolute Nucleated RBC 0.000 (0.0-0.012) K/mm3 Nucleated RBC % 0.0 (0.0-0.2) % PT 21.0 H (11.1-14.7) Seconds INR 1.7 APTT 39.1 H (22.3-36.8) Seconds Sodium 140 (137-145) mmol/L Potassium 4.0 (3.4-5.0) mmol/L Chloride 103 (98-107) mmol/L Carbon Dioxide 32 H (22-30) mmol/L Anion Gap 5 (4-12) mmol/L BUN 10 (9-20) mg/dL Creatinine 0.73 (0.7-1.3) mg/dL Estim Creat Clear Calc 122 ml/min Estimated GFR > 60 (59 - ) Glucose 92 (65-110) mg/dL Calcium 9.1 (8.4-10.2) mg/dL Imaging Data Radiologist's impression: Impressions Venous Doppler Study 07/18/24 16:24 IMPRESSION: Acute right peroneal DVT. Otherwise patent right lower extremity veins. Head CT 07/18/24 17:00 IMPRESSION: No acute intracranial process. Cervical Spine CT 07/18/24 17:02 IMPRESSION: No acute fracture or traumatic malalignment in the cervical spine. Discharge Plan Discharge Clinical Impression: Acute deep vein thrombosis (DVT) of right peroneal vein, Normocytic anemia Patient Disposition: Home, Self-Care Condition: Stable Instructions: Antibiotic Form, Deep Vein Thrombosis (DC) Additional Instructions: No broken bones or bleeding in your brain. You do have a blood clot. Continue taking your Xarelto. Follow up with your primary care physician - especially to discuss if a further work up such as a hematology work up needs to happen to try to identify why you are so prone to blood clots and how long they anticipate you to require anticoagulation as a result. Return to the ED if new/worsening symptoms. for pain, it is safe to take acetaminophen / Tylenol maximum 4000 mg per day. As a reminder though, NSAIDs ( such as ibuprofen, Motrin, Advil, Aleve, etc.) are contraindicated. I had considered prescribing a short course of opiate/narcotic medication but see you are already prescribed hydrocodone which was filled 06/25/2024; you can use these for breakthrough pain but Remember that each of these tablets contains 325 mg of acetaminophen / Tylenol and take that into account the do not exceed the maximum daily dose that is recommended on accident. Patient Language: Setswana Prescriptions: New acetaminophen 500 mg capsule 1,000 mg PO Q6H PRN (Reason: pain) Qty: 30 0RF oxycodone 5 mg capsule 5 mg PO Q8H PRN (Reason: pain) Qty: 7 0RF No Action hydrocodone-acetaminophen 10-325 mg tablet 1 tablet PO Q6H PRN Xarelto 20 mg tablet 20 mg PO DAILY Rx Instructions: must administer with evening meal Vyvanse 60 mg capsule 60 mg PO DAILY desvenlafaxine succinate [Pristiq] 100 mg tablet extended release 24 hr 100 mg PO DAILY testosterone enanthate 50 mg/0.5 mL auto-injector 50 mg subcut WEEKLY AMANDA/5HTP/caf/arg/chl/br/hb318 1,400 mg capsule PO B-complex with vitamin C Tablet 1 tablet PO DAILY clonazepam 1 mg tablet 1 mg PO BID Xarelto 20 mg tablet 20 mg PO DAILY Rx Instructions: must administer with evening meal hydrochlorothiazide 25 mg tablet 25 mg PO DAILY lisdexamfetamine [Vyvanse] 60 mg capsule 60 mg PO DAILY lamotrigine 100 mg tablet 100 mg PO DAILY hydrocodone-acetaminophen 10-300 mg tablet 1 tablet PO QHS PRN alprazolam [Xanax] 0.5 mg tablet 0.5 mg PO QHS PRN pantoprazole 20 mg tablet,delayed release (DR/EC) 20 mg PO QAM Wegovy 0.25 mg/0.5 mL pen injector 0.25 mg subcut WEEKLY Rx Instructions: administer weeks 1 through 4 of therapy Nurtec ODT 75 mg tablet,disintegrating See Rx Instructions .ROUTE .COMPLEX Qty: 16 3RF Dose Instruction: TAKE 1 TABLET BY MOUTH ONCE NEEDED FOR MIGRANE HEADACHE MAX 1 DOSE/24 HOURS OR 15/30 DAYS Rx Instructions: TAKE 1 TABLET BY MOUTH ONCE NEEDED FOR MIGRANE HEADACHE MAX 1 DOSE/24 HOURS OR 15/30 DAYS amoxicillin-pot clavulanate 875-125 mg tablet 1 tablet PO Q12H Qty: 20 0RF albuterol sulfate 90 mcg/actuation HFA aerosol inhaler 2 puff inhalation QID PRN (Reason: shortness of breath or wheezing) Qty: 6.7 0RF ondansetron 4 mg tablet,disintegrating 4 mg PO Q8H PRN (Reason: nausea and vomiting) 5 Days Qty: 20 0RF ketorolac 10 mg tablet 10 mg PO Q8H PRN (Reason: pain) 5 Days Qty: 20 0RF Rx Instructions: maximum total duration of 5 days from all oral, intranasal, or parenteral formulations prednisone 50 mg tablet 50 mg PO DAILY 5 Days Qty: 5 0RF Aimovig Autoinjector 140 mg/mL auto-injector 140 mg subcut MONTHLY Qty: 1 5RF Follow-up/Referrals: Isatu Jones [Other] (PCP (through [employer])) UNKNOWN,DOCTOR [Non-Staff] - Stand Alone Forms: Work/School Release IP Time of Disposition: 17:39
--- NOTE | 2024-07-18 15:31 | PC.NURSE ---
Patient states that he has not been taking his Xarelto for about a week. Patient states that due to life stressors he forgot to put his Xarelto in his weekly medicine box.
[2024-07-18 15:34] VITALS: BP 126/74; PULSE 60; RESP 18; TEMP 36.6; O2SAT 98
--- OUTSIDE RECORDS SUMMARY | 2024-07-18 15:36 | XMS_ITS | Continuity of Care Document ---
Author Organization [facility] Address [address] [place] [address] Phone Care Team Providers Care Locomotive Oiler Name Role Phone Talon Ambrose Unavailable Unavailable Advance Directives Directive Yes / No Effective Date File Name No Information Encounters Encounter Description Practice Location Reason(s) For Visit Diagnoses Date Provider Providers Copied on Encounter [facility], [address] [place] [address], [facility], tel:[phone] *[facility] No Information Arnol Hanley. [address] [place] [address], [facility], [place]. tel:[phone] Family History Family Member Type Diagnosis Age At Onset No Information Payers Payer name Insurance type Covered constitution party ID Authoriza tion(s) No Information Social History [...]
--- OUTSIDE RECORDS SUMMARY | 2024-07-18 15:36 | XMS_ITS | CONTINUITY OF CARE DOCUMENT ---
Author Name ren mcclure Address Unknown Organization [facility] Address [address] [place] [address] Phone [phone] Care Team Providers Care Hand Binder Stripper Name Role Phone Adan Peñaloza MD Unavailable DINAH FRITZ MD Unavailable [phone] WOJCIECH FLORES MD Unavailable [phone] INSURANCE PROVIDERS Payer name Policy type / Coverage type Commerce red libertarian ID [facility] Agentrun [id number]
--- OUTSIDE RECORDS SUMMARY | 2024-07-18 15:37 | XMS_ITS | Referral Summary ---
Author Organization [facility] Address [address] [place] [address] Care Team Providers Care Treatment Manager Name Role Phone Unknown, Notinfile Unavailable Unavailable Nga Hernandez MD Primary Care Provider [phone] Allergies No known active allergies Medications metoclopramide [...] tablet TAKE 1 TABLET BY MOUTH DAILY [id number], THEN INCREASE TO 2 TABLETS DAILY 2 [...] on file Legal Sex Male 11:35 PM CARPET CLEANER Gender Identity Not on file Sexual Orientation Not on file Last Filed Vital Signs Vital Sign Reading Time Taken Comments Blood Pressure 103/63 06/27/2018 12:30 AM CARPET CLEANER Pulse 62 06/27/2018 12:30 AM CARPET CLEANER Temperature 36.6 C (97.9 F) 06/26/2018 8:19 PM CARPET CLEANER Respiratory Rate 16 06/27/2018 12:30 AM CARPET CLEANER Oxygen Saturation 100% 06/27/2018 12:30 AM CARPET CLEANER Inhaled Oxygen Concentration - - Weight 90.7 kg (200 lb) 06/26/2018 8:19 PM CARPET CLEANER Height 175.3 cm (5' 9 ) 06/26/2018 8:19 PM CARPET CLEANER Body Mass Index 29.53 06/26/2018 8:19 PM CARPET CLEANER Plan of Treatment Not on file Insurance [facility] UHC CHOICE PLUS CIGNA ALLEGIANCE CIGNA ALLEGIANCE Care Teams Treatment Manager Relationship Specialty [place] [address] [place] [address] PCP - General Internal Medicine 12/16/23 Unknown, Notinfile 11/26/21
--- OUTSIDE RECORDS SUMMARY | 2024-07-18 15:37 | XMS_ITS | Clinical Summary ---
Author Organization [facility] Address [address] [place] [address] Phone Care Team Providers Care Branch Office Administrator Name Role Phone Tello Denton MD Primary [...] Type Department Care Team Description 05/09/2024 Refill [facility] [address] [place] [address] [phone] Mallika Jung APRN, CNP Medication Refill 05/06/2024 11:00 AM DREDGE PIPE INSTALLER Office Visit [facility] [address] [place] [address] [phone] Mallika Jung APRN, CNP Mixed bipolar [...] Comments Blood Pressure 146/83 05/06/2024 11:21 AM DREDGE PIPE INSTALLER Pulse 93 05/06/2024 11:11 AM DREDGE PIPE INSTALLER Temperature - - Respiratory Rate 20 05/06/2024 11:11 AM DREDGE PIPE INSTALLER Oxygen Saturation 100% 05/06/2024 11:11 AM DREDGE PIPE INSTALLER Inhaled Oxygen Concentration - - Weight 97.5 kg (215 lb) 05/06/2024 11:11 AM DREDGE PIPE INSTALLER Height 175.3 cm (5' 9 ) 05/06/2024 11:11 AM DREDGE PIPE INSTALLER Body Mass Index 31.75 05/06/2024 11:11 AM DREDGE PIPE INSTALLER Plan of Treatment Upcoming Encounters Date Type Department Care Team (Late st Contact Info) Description 08/05/2024 10:45 AM CDT Office Visit [facility] [address] [place] [phone] Mallika Jung, [employer] [address] [place] [phone] (Work) Health Maintenance Due Date Last [...] patient's age to complete this topic Insurance [facility] Care Teams Branch Office Administrator Relationship Specialty Start Date End Date Tello Denton MD [address] [place] [address] PCP - General Internal Medicine 01/30/24
--- OUTSIDE RECORDS SUMMARY | 2024-07-18 15:37 | XMS_ITS | Clinical Summary ---
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 Gender Identity Not on file Sexual Orientation Not on file Obstetrics History Last Filed Vital Signs Vital Sign Reading Time Taken Comments Blood Pressure 103/63 06/27/2018 12:30 AM COIN COLLECTOR Pulse 62 06/27/2018 12:30 AM COIN COLLECTOR Temperature 36.6 C (97.9 F) 06/26/2018 8:19 PM COIN COLLECTOR Respiratory Rate 16 06/27/2018 12:30 AM COIN COLLECTOR Oxygen Saturation 100% 06/27/2018 12:30 AM COIN COLLECTOR Inhaled Oxygen Concentration - - Weight 90.7 kg (200 lb) 06/26/2018 8:19 PM COIN COLLECTOR Height 175.3 cm (5' 9 ) 06/26/2018 8:19 PM COIN COLLECTOR Body Mass Index 29.53 06/26/2018 8:19 PM COIN COLLECTOR Plan of Treatment Health Maintenance Due Date [...] 04/21/2008 Hepatitis C Screening Completed 02/01/2022 Insurance [facility] H[facility]/PPO Address: [address] [address] [place] [address] [employer] Care Teams Rn Iv Therapy Relationship Specialty [place] [address] [place] [address] PCP - General Internal Medicine 12/16/23 Unknown, Notinfile 11/26/21
--- OUTSIDE RECORDS SUMMARY | 2024-07-18 15:37 | XMS_ITS | Clinical Summary ---
Author Organization [employer] [facility] Address [address] [place] [address] Care Team Providers Care Bilingual Hr Generalist Name Role Phone Nga Hernandez MD Primary Care Provider [phone] Allergies Active Allergy Reactions Criticality Noted Date [...] 4 Active fluticasone propionate (FLONASE) 50 mcg/spray [place], Suspension nasal inhalerIndicati ons:Acute non-recurrent maxillary sinusitis [...] STL ABSTRACTION Provider, Abstract 05/25/2024 10:30 AM WOOD CASKET ASSEMBLER Office Visit [facility] [place] [address] [place] [address] Nga Hernandez MD Hypertension, unspecified type (Primary Dx); Skin lesion; Sebaceous cyst; Screening for condition; Left eye injury, initial encounter 05/12/2024 Refill [facility] [place] [address] [place] [phone] Nga Hernandez MD 04/27/2024 1:40 PM WOOD CASKET ASSEMBLER Procedure visit [facility] [place] [address] [place] [phone] Issue of repeat prescription (Primary Dx) 04/26/2024 1:30 PM WOOD CASKET ASSEMBLER Video Visit [facility] [place] [address] [place] [phone] [place], [place] Acute non-recurrent maxillary sinusitis (Primary Dx); Current every day vaping 04/26/2024 Refill [facility] [place] [address] [place] [phone] Nga Hernandez MD History of pulmonary embolism [...] Comments Blood Pressure 142/88 05/25/2024 10:42 AM WOOD CASKET ASSEMBLER Pulse 97 05/25/2024 10:42 AM WOOD CASKET ASSEMBLER Temperature 36.6 C (97.9 F) 05/25/2024 10:42 AM WOOD CASKET ASSEMBLER Respiratory Rate 18 05/25/2024 10:42 AM WOOD CASKET ASSEMBLER Oxygen Saturation 98% 05/25/2024 10:42 AM WOOD CASKET ASSEMBLER Inhaled Oxygen Concentration - - Weight 96.4 kg (212 lb 9.6 oz) 05/25/2024 10:42 AM WOOD CASKET ASSEMBLER Height 175.3 cm (5' 9 ) 05/25/2024 10:42 AM WOOD CASKET ASSEMBLER Body Mass Index 31.4 05/25/2024 10:42 AM WOOD CASKET ASSEMBLER Plan of Treatment Health Maintenance Due Date [...] on file Group ID:[id number] Type:RX Commercial Address: [place], [place] ALLEGIANCE OPEN ACCESS ALLEGIANCE OPEN ACCESS Care Teams Bilingual Hr Generalist Relationship Specialty Start Date End Date Nga Hernandez MD [address] [place] [phone] PCP - General Internal Medicine 09/16/23
[2024-07-18] MEDS: HYDROcodone/acetaminophen (*CRX) 5-325 MG TABLET 1 TAB PO (16:00)
[2024-07-18 17:05] LABS: Basophils Percent Auto 0.6 % (0.2-1.2); Eosinophils Absolute Auto 0.2 K/mm3 (0-0.3); Eosinophils Percent Auto 3.3 % (0-4.4); Hematocrit 39.2 % (42.0-52.0); Hemoglobin 13.1 g/dL (14.0-18.0); Immature Granulocyte Absolute 0.01 K/mm3 (0.00-0.031); Immature Granulocyte Percent A 0.2 % (0-0.5); Lymphocytes Absolute Auto 2.01 K/mm3 (0.9-3.2); Lymphocytes Percent Auto 38.6 % (18.3-44.2); Mean Corpuscular HGB Conc 33.4 g/dl (32-36); Mean Corpuscular Hemoglobin 29.6 pg (26-34); Mean Corpuscular Volume 88.5 fl (80-100); Mean Platelet Volume 10.1 fl (7.4-10.4); Monocytes Absolute Auto 0.4 K/mm3 (0.1-0.6); Monocytes Percent Auto 7.1 % (2.6-8.5); Neutrophils Absolute Auto 2.6 K/mm3 (1.3-6.7); Neutrophils Percent Auto 50.2 % (45.5-73.1); Platelet Count Result 205 k/mm3 (150-375); Red Blood Count 4.43 M/mm3 (4.6-6.20); White Blood Count 5.2 K/mm3 (4.5-10.0)
[2024-07-18 17:15] LABS: Anion Gap 5 mmol/L (4-12); Blood Urea Nitrogen 10 mg/dL (9-20); Calcium 9.1 mg/dL (8.4-10.2); Carbon Dioxide 32 mmol/L (22-30); Chloride 103 mmol/L (98-107); Estimated CRCL calculation 122 ml/min; Estimated Glomerular Filt Rate > 60; Glucose 92 mg/dL (65-110); Sodium 140 mmol/L (137-145)
[2024-07-18 17:30] LABS: INR 1.7; Partial Thromboplastin Time 39.1 Seconds (22.3-36.8)
== END 2024-07-18 17:50 | disposition home or self-care (01) ==
PROVIDERS: Emergency Provider Student in an Organized Health Care Education/Training Program
DX: I82.451 Acute embolism and thrombosis of right peroneal vein (principal); D64.9 Anemia, unspecified; T45.516A Underdosing of anticoagulants, initial encounter; Z91.138 Patient's unintentional underdosing of medication regimen for other reason; S09.90XA Unspecified injury of head, initial encounter; Z86.711 Personal history of pulmonary embolism; Z86.19 Personal history of other infectious and parasitic diseases; Z87.891 Personal history of nicotine dependence; Z79.01 Long term (current) use of anticoagulants; Z79.899 Other long term (current) drug therapy; W20.8XXA Other cause of strike by thrown, projected or falling object, initial encounter
CPT/HCPCS: 36415; 70450; 72125; 80048; 85025; 85610; 85730; 93971; 99284; A9270

== ENCOUNTER 2024-08-01 15:57 | Emergency (ER) | payer OTHER, BC, SELFPAY ==
--- NOTE | ~2024-08-01 | CT_ITS ---
EXAMINATION: CT thoracic lumbar wo con DATE: 08/01/2024 16:50 INDICATION: fall . TECHNIQUE: Computed tomography (CT) of the thoracic and lumbar spine was performed without intravenou s contrast. Automated exposure control and iterative reconstruction technique were employed. The dose -length product was 1602.16 mGy-cm. COMPARISON: None FINDINGS: THORACIC SPINE: Vertebral body alignment intact. Vertebral body heights preserved. Multilevel mild and moderate degre es of thoracic degenerative disc disease with several bridging osteophytes. Moderate right neural for aminal narrowing at T9-10 secondary to degenerative facet change. Multilevel mild and moderate degree s of facet arthropathy. No traumatic malalignment or fracture. No severe central canal or neural fora mehul narrowing. Dependent atelectasis, otherwise the visualized lung parenchyma is clear. LUMBAR SPINE: 5 nonrib-bearing lumbar-type vertebral bodies. Pedicles intact. Normal vertebral body alignment. Vert ebral body heights preserved. Multilevel mild degenerative disc disease and facet arthropathy. No sev ere central canal or neural foraminal narrowing. IMPRESSION: No acute fracture or traumatic malalignment detected in the thoracic or lumbar spine Reviewed, dictated and finalized at location K.
--- NOTE | ~2024-08-01 | XR_ITS ---
EXAM: XR hand LT min 3V DATE: 08/01/2024 16:32 HISTORY: left thumb pain, fall . COMPARISON: None available. FINDINGS: Normal mineralization. No fracture or dislocation. No lytic or blastic lesion. Mild scatte red degenerative change. Flexion deformity at the fifth DIP joint. No erosion or periosteal change. S oft tissues within normal limits. IMPRESSION: No acute osseous finding in the left hand. Presumed chronic mallet finger deformity at th e fifth DIP joint. Reviewed, dictated and finalized at location K. IMPRESSION: No acute osseous finding in the left hand. 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
--- NOTE | ~2024-08-01 | CT_ITS ---
EXAMINATION: CT cervical spine wo con DATE: 08/01/2024 16:48 INDICATION: fall TECHNIQUE: Computed tomography (CT) of the cervical spine was performed 07/18/2024 intravenous contras t. Automated exposure control and iterative reconstruction technique were employed. The dose-length p roduct was 406.80 mGy-cm. COMPARISON: None. FINDINGS: Vertebral Body Alignment: Intact. Cervical straightening. Craniocervical and atlantoaxial alignment: Mild degenerative change. Alignment intact. Osseous structures/fracture: No evidence of a lytic or blastic process in the visualized spine. No e vidence of acute fracture. Cervical soft tissues: The paraspinal soft tissues planes are maintained. Degenerative changes: No significant degenerative changes. IMPRESSION: No acute fracture or traumatic malalignment in the cervical spine. Reviewed, dictated and finalized at location K.
--- NOTE | ~2024-08-01 | CT_ITS ---
EXAMINATION: CT brain wo con DATE: 08/01/2024 16:48 INDICATION: fall, head injury . TECHNIQUE: Computed tomography (CT) of the head was performed without intravenous contrast. The mA wa s adjusted according to patient size. Iterative reconstruction technique was employed. The dose-lengt h product was 605.33 mGy-cm. COMPARISON: 07/18/2024. FINDINGS: No acute intracranial hemorrhage or extra-axial fluid collection. No hydrocephalus, mass, or herniation. No acute ischemic infarct. Unremarkable dural venous sinus attenuation. No acute osseous abnormality. The aerated spaces are clear. IMPRESSION: No acute intracranial process. Reviewed, dictated and finalized at location K.
--- OUTSIDE RECORDS SUMMARY | 2024-08-01 16:00 | XMS_ITS | Data Portability ---
Author Organization [facility], Main Office Address [address] [place] [address] Assessment No assessment recorded. Plan of Treatment Reminders Order Date Submit Date Provider Last Modified By Organization Details Last Modified Time Details Appointments None recorded . Lab urinalys is, dipstick 2022 023 [email or web address] [facility], [address] [facility] [address], [place], [address], 3 11:22:15 CBC 2022 023 [facility] (Lab), [address] [place], [address], 3 14:17:43 CMP, serum or plasma 2022 023 [facility] (Lab), [address] [place], [address], 3 14:17:43 PSA, total, serum or plasma 2022 023 [email or web address] [facility] (Lab), [address] [place], [address], 4 12:41:31 testoste matthew, free + total, serum 2022 023 [facility] (Lab), [address] [place], [address], 3 13:23:36 estradio l, serum 2022 023 [facility] (Lab), [address] [facility], [place], [address], 13:23:37 Referral None recorded . Procedures None recorded . Surgeries None recorded . Imaging US, bladder 2022 023 [email or web address] [facility] [place], [address] [place], [place] [address]e [address], [place], [address], 11:25:38 Medication Orders None recorded . Patient TargetsNo targets recorded. Patient InstructionsNo instructions recorded. Reason for Referral None Reported. Results Created Date Observation Date Name Description Value Unit Range Abnormal Flag Note LastModifiedBy Organization Detail LastModifiedTime 03/08/2003/08/2021 urina lysis , dipst ick Leukocytes (reference range: negative sesar/ l) Negati ve Not Available Z_[facility]_[address], [address], [address], 03/08/2021 11:19:45 03/08/20 21 03/08/2021 urina lysis , dipst ick Nitrite (reference rage: negative mg/dl) negati ve Not Available [facility], [address], 03/08/2021 11:19:45 03/08/20 21 03/08/2021 urina lysis , dipst ick Urobilinogen (reference range: 0.2-1 mg/dl) 0.2 Not Available [facility] c_[address], [address], [address], 03/08/2021 11:19:45 03/08/20 21 03/08/2021 urina lysis , dipst ick Protein (reference range: negative mg/dl) Negati ve Not Available [facility] [place] [address], [address], [place], [address], 03/08/2021 11:19:45 03/08/20 21 03/08/2021 urina lysis , dipst ick pH (reference range: 5-7) 6.0 Not Available [address], [address], 03/08/2021 11:19:45 03/08/2003/08/2021 urina lysis , dipst ick Blood (reference range: negative Robin/ l) Small Not Available [address], [address], 03/08/2021 11:19:45 03/08/20 21 03/08/2021 urina lysis , dipst ick Specific [place] (reference range: 1.005-1.030) 1.025 Not Available [address], [address], 03/08/2021 11:19:45 03/08/20 21 03/08/2021 urina lysis , dipst ick Ketone (reference range: negative mg/dl) Negati ve Not Available [address], [address], 03/08/2021 11:19:45 03/08/20 21 03/08/2021 urina lysis , dipst ick Bilirubin (reference range: negative mg/dl) Small Not Available [address], [address], 03/08/2021 11:19:45 03/08/2003/08/2021 urina lysis , dipst ick Glucose (reference range: negative mg/dl) Negati ve Not Available [address], [address], [address], 03/08/2021 11:19:45 03/08/20 21 03/08/2021 urina lysis , dipst ick Appearance Clear Not Available [address], [address], 03/08/2021 11:19:45 03/08/2003/08/2021 urina lysis , dipst ick Color Yellow Not Available [address], [address], 03/08/2021 11:19:45 03/29/20 21 03/29/2021 urina lysis , dipst ick Leukocytes (reference range: negative sesar/ l) Negati ve Not Available [address], [address], 03/29/2021 10:47:02 03/29/20 21 03/29/2021 urina lysis , dipst ick Nitrite (reference rage: negative mg/dl) negati ve Not Available [address], [address], 03/29/2021 10:47:02 03/29/20 21 03/29/2021 urina lysis , dipst ick Urobilinogen (reference range: 0.2-1 mg/dl) 0.2 Not Available [address], [address], 03/29/2021 10:47:02 03/29/20 21 03/29/2021 urina lysis , dipst ick Protein (reference range: negative mg/dl) Negati ve Not Available [address], [address], 03/29/2021 10:47:02 03/29/20 21 03/29/2021 urina lysis , dipst ick pH (reference range: 5-7) 5.5 Not Available [place] [address], [place], [address], 03/29/2021 10:47:02 03/29/2003/29/2021 urina lysis , dipst ick Blood (reference range: negative Robin/ l) Small Not Available [address], [address], 03/29/2021 10:47:02 03/29/20 21 03/29/2021 urina lysis , dipst ick Specific [place] (reference range: 1.005-1.030) 1.020 Not Available [address], [address], 03/29/2021 10:47:02 03/29/20 21 03/29/2021 urina lysis , dipst ick Ketone (reference range: negative mg/dl) Negati ve Not Available [address], [address], 03/29/2021 10:47:02 03/29/20 21 03/29/2021 urina lysis , dipst ick Bilirubin (reference range: negative mg/dl) Small Not Available Z_[facility]_[address], [place] [address], [place], [address], 03/29/2021 10:47:02 03/29/20 21 03/29/2021 urina lysis , dipst ick Glucose (reference range: negative mg/dl) Negati ve Not Available [facility]_[address] [address], [place], [address], 03/29/2021 10:47:02 03/29/20 21 03/29/2021 urina lysis , dipst ick Appearance Clear Not Available [facility] _[place] [address] [address], [place], [address], 03/29/2021 10:47:02 11/29/19 23 11/28/2022 urina lysis , dipst ick Leukocytes (reference range: negative sesar/ l) Negati ve Not Available [facility] [address] [facility] [address], [place], [address], 11/28/2022 11:07:19 11/29/19 23 11/28/2022 urina lysis , dipst ick Nitrite (reference rage: negative mg/dl) negati ve Not Available [facility] [address], [place], [address], 11/28/2022 11:07:19 11/29/19 23 11/28/2022 urina lysis , dipst ick Urobilinogen (reference range: 0.2-1 mg/dl) 0.2 Not Available [facility] [address], [place], [address], 11/28/2022 11:07:19 11/29/1911/28/2022 urina lysis , dipst ick Protein (reference range: negative mg/dl) Negati ve Not Available [facility] [address], [place], [address], 11/28/2022 11:07:19 11/29/19 23 11/28/2022 urina lysis , dipst ick pH (reference range: 5-7) 5.5 Not Available s_ gmg [facility] [address], [place], [address], 11/28/2022 11:07:19 11/29/1911/28/2022 urina lysis , dipst ick Blood (reference range: negative Robin/ l) Negati ve Not Available s_g [facility] [address] [place] [address] [address], [place], [address], 11/28/2022 11:07:19 11/29/1911/28/2022 urina lysis , dipst ick Specific [place] (reference range: 1.005-1.030) 1.025 Not Available s _[facility] [address], [place], [address], 11/28/2022 11:07:19 11/29/19 23 11/28/2022 urina lysis , dipst ick Ketone (reference range: negative mg/dl) Negati ve Not Available s_gmg [facility] [address] [place] [address] [address], [place], [address], 11/28/2022 11:07:19 11/29/19 23 11/28/2022 urina lysis , dipst ick Bilirubin (reference range: negative mg/dl) Negati ve Not Available s_[facility] [address] [place] [address] [address], [place], [address], 11/28/2022 11:07:19 11/29/19 23 11/28/2022 urina lysis , dipst ick Glucose (reference range: negative mg/dl) Negati ve Not Available [facility] [place] [address], [place], [address], 11/28/2022 11:07:19 11/29/19 23 11/28/2022 urina lysis , dipst ick Appearance Clear Not Available [facility] [place] [address] [place], [place] [address], [place], [address], 11/28/2022 11:07:19 11/29/19 23 11/28/2022 urina lysis , dipst ick Color Yellow Not Available [facility] t [place] [address] [place] [address], [place], [address], 11/28/2022 11:07:19 01/09/20 21 01/03/2021 sleep study , basel ine diagn ostic polys omnog leigh* No observ ation record ed. [id number] Not Available 06/19/2022 19:12:38 03/08/20 21 03/08/2021 US, bladd er No observ ation record ed. [id number] [facility] [place] [address] [facility], [address], [place], [address], 06/19/2022 19:12:38 11/29/19 23 11/28/2022 US, bladd er No observ ation record ed. [email or web address] [facility] [address] [place] [address], [place], [address], 11/29/2022 14:57:39 Result Notes None recorded. Problems Name Problem SNOMED Code Status Onset Date Resolution Date Notes Provider Name and Address Organization Details Recorded Time Venous thrombosis 098785349 Active Not Available [facility] 3 19:12:04 Testicular hypofuncti on 144334091 Active Not Available [facility] 3 19:12:04 Chest pain 82331356 Active Not Available [facility] 3 19:12:04 Current tear of medial cartilage AND/OR meniscus of knee Active Not Available [facility] 3 19:12:04 Hypertensi ve disorder 55942889 Completed Not Available [facility] 3 19:12:04 Osteoarthr itis 584893659 Active Not Available [facility] 3 19:12:04 Viral hepatitis C 53035798 Active Not Available [facility] 3 19:12:04 Hyperlipid emia 03163876 Active Not Available [facility] 3 19:12:04 Essential hypertensi on 51149480 Active Not Available [facility] 3 19:12:04 Sexually transmitte d infectious disease 8817036 Active Not Available [facility] 3 19:12:04 Pain in limb 54983244 Active Not Available [facility] 3 19:12:04 Male hypogonadi sm 53222207 Active 2022 DILSHAD Chandler - [place] [facility] 3 11:19:07 Notes:Medical History: Subst ance use Bipolar depression/Anxiety/ADHD Migraine headaches Rhinitis Bruxism Obesity with mild OSAHS, AHI = 1, 01/03/21 Hypertension Hyperlipidemia Hepatitis C Hypogonadism PLMD 2 PE/ 5 DVT on Xarelto Osteoarthritis Procedure History: Bilateral Lasik eye surgery 2019 Problem Notes None recorded. Procedures Surgical History None recorded. Imaging Results Imaging Date Name Status [facility] Details LastModified Time 01/03/2021 sleep study, baseline diagnostic polysomnogram* completed [id number] Information not available 06/19/2022 19:12:38 03/08/2021 US, bladder completed [id number] [facility] [address], [address], [place], [address], 06/19/2022 19:12:38 11/28/2022 US, bladder completed [email or web address] [facility] [place] [address] [place] [address], [place], [address], 11/29/2022 14:57:39 Procedure Notes None recorded. Medical [...] Not Available Not Available Not Available Fluvirin 1640-7891 45 mcg (15 mcg x 3)/0.5 mL intramuscul ar suspension INJECT 0.5 ML INTRAMUSC ULARLY DIRECTED. 08/10 /2021 completed Not Available Not Available Not Available [...] Not Available Not Available Not Available Fluvirin 3902-3948 45 mcg (15 mcg x 3)/0.5 mL [...] 4 75 /min 18 /min 98.6 [degF] 822498. 66 g 122 mm[Hg] 92 mm[Hg] Not Available [facility] 3 19:11:59 Date Recorded Body mass index (BMI) Body height Oxygen saturation Oxygen saturation in Arterial blood by Pulse oximetry Body temperature Body weight Systolic blood pressure Diastolic blood pressure Provider Name and Address Organization Details Last Updated DateTime 1 33.5 kg/m2 175.26 cm 97 % 97 % 98.8 [degF] 909511. 47 g 153 mm[Hg] 89 mm[Hg] Not Available [facility] 3 19:11:59 Date Recorded Body mass index (BMI) Body height Body weight Provider Name and Address Organization Details Last Updated DateTime 03/29/2021 33.5 kg/m2 175.26 cm 895194.47 g Not Available [facility] 06/19/2022 19:12:00 Date Recorded Body weight Body temperature Oxygen saturation Oxygen saturation in Arterial blood by Pulse oximetry Heart rate Systolic blood pressure Diastolic blood pressure Provider Name and Address Organization Details Last Updated DateTime 3 730337. 09 g 97.9 [degF] 98 % 98 % 83 /min 139 mm[Hg] 93 mm[Hg] NATY Rivero [place] [facility] [place] [employer] 3 11:06:54 Date Recorded Body mass index (BMI) Body height Provider Name and Address Organization Details Last Updated DateTime 11/28/2022 36.9 kg/m2 175.26 cm Nga Jones MA [facility] [employer] 11/28/2022 11:05:40 Social History None recorded. Functional Status None recorded. Mental Status None recorded. Family History Nothing Reported. Medical History No medical history recorded. Immunizations Vaccine Type Date Status Note Provider Nam e and Address Organization Details Recorded Time influenza, unspecified formulation 3 completed Not Available [facility] 06/19/2022 19:12:36 tetanus toxoid, unspecified formulation 1 completed Not Available [facility] 06/19/2022 19:12:36 Influenza, high-dose, trivalent, PF 3 completed Not Available [facility] 06/19/2022 19:12:36 Influenza, high-dose, trivalent, PF 3 completed Not Available [facility] 06/19/2022 19:12:36 Past Encounters Encounter ID Performer Location Encounter Start Date Encounter Closed Date Diagnosis/Indication Diagnosis SNOMED-CT Code Diagnosis ICD10 Code Diagnosis Note [id number] [facility] [address] [address] 11/30/2020 00:00:00 11/30/2020 12:27:55 [id number] [facility] [address] [place] [address] 03/08/2021 00:00:00 03/08/2021 12:15:21 [id number] [facility] [address] [place] [address] 03/29/2021 00:00:00 03/29/2021 11:26:17 [id number] Primo Jerome MD [facility] [address] [place] [address] 11/28/2022 10:53:19 11/28/2022 11:25:37 Male hypogonadism 21941740 E29.1 check labs. discussed need for TRT. follow up in 2 week.s Health Concerns Section Related Observation LastModified by Organization Detai ls LastModified Time None Recorded Concern Status LastModified by Organization Details LastModified Time None Recorded Advance Directives Directive None Recorded Payers Encounter Date Sequence Insurance Name Policy Number Policy Kaba Covered Member ID Kaba Member ID Guarantor Name 11/28/2022 1 [facility] [employer] (PPO) [id number] Homero Arechiga [id number] Homero Arechiga Notes Date Note Type Note [...] or burning in the urine. Not Available [place] [facility] [employer] 03/08/2021 12:15:21 11/28/2022 text/html 47 yo male with hypogonadism. He went off Testosterone to have a baby and was put on Clomid. They were unsuccessful. He had no sex drive so they did not have sex. He as been off Clomid for 6 weeks. He is on Cialis. Primo Jerome MD [address] [place] [address], [place] [address], [place], [address], [place] [facility] 11/28/2022 11:32:20
--- OUTSIDE RECORDS SUMMARY | 2024-08-01 16:00 | XMS_ITS | CONTINUITY OF CARE DOCUMENT ---
Author Name ren mcclure Address Unknown Organization [facility] Address [address] [facility] [address] [place] [address] Phone [phone] Care Team Providers Care Nurse Practitioner Home Assessments Name Role Phone Adan Peñaloza MD Unavailable [phone] DINAH FRITZ MD Unavailable WOJCIECH FLORES MD Unavailable INSURANCE PROVIDERS Payer name Policy type / Coverage type [employer] party ID [facility] [employer] [id number]
--- OUTSIDE RECORDS SUMMARY | 2024-08-01 16:00 | XMS_ITS | Clinical Summary ---
Author Organization [facility] Address [address] [facility] [place] [address] Care Team Providers Care Teacher Of Gifted Students Name Role Phone Nga Hernandez MD Primary Care Provider [phone] Allergies Active Allergy Reactions Criticality Noted Date Comments Semaglutide (Weight Loss) Abdominal Pain Low 01/09/2024 Elevation in lipase. Mild pancreatitis suspected. Medications erenumab-aooe (Aimovig Autoinjector) 140 mg/mL Auto-Injector Inject 140 mg by subcutaneous injection one time only. Active HYDROcodone-ac etaminophen (NORCO) 10-325 mg Tablet Take 1 Tablet by mouth every 8 hours as needed. Pt takes 3 times a day Active lisdexamfetami ne (Vyvanse) 60 mg capsule Take 60 mg by mouth daily in the morning. Active testosterone cypionate (DEPO-TESTOSTE SARA) 200 mg/mL Oil Inject 200 mg by intramuscular injection every 2 weeks. Pt will restart after seeing urologist Active lidocaine (LIDODERM) 5 % Adhesive Patch, Medicated Apply 1 Patch to affected area 1 time daily as needed. Pt uses as needed states maybe monthly Active rimegepant (Nurtec ODT) 75 mg Tablet, Rapid Dissolve Take 50 mg by mouth 1 time daily as needed. As needed with migraine Active lamoTRIgine (LaMICtal) 100 mg tablet Take 100 mg by mouth daily. Active cyclobenzaprin e (FLEXERIL) 10 mg tablet Take 1 Tablet by mouth 2 times daily. 024 Active pantoprazole sodium (PANTOPRAZOLE ORAL) Take by mouth. Activ e folic acid/multivit- min/lutein (CENTRUM SILVER ORAL) Take by mouth. Ac tive pantoprazole (PROTONIX) 40 mg Tablet, Delayed Release (E.C.) take 1 tablet by mouth every day as directed 90 Tablet 3 024 Active fluticasone propionate (FLONASE) 50 mcg/spray [place], Suspension nasal inhalerIndicat ions:Acute non-recurrent maxillary sinusitis Administer 2 Sprays in each nostril daily. 16 Gram 025 Active Xarelto 20 mg TabletIndicati ons:History of pulmonary embolism TAKE 1 TABLET BY MOUTH DAILY WITH SUPPER. 90 Tablet 1 025 Active ALPRAZolam (XANAX) 0.5 mg tablet 0.5 mg. 025 Active prazosin (MINIPRESS) 1 mg capsule Take 1 mg by mouth daily at bedtime. 025 Active valACYclovir (Valtrex) 500 mg tabletIndicati ons:Herpes simplex disease Take 1-2 Tablets (500-1,000 mg) by mouth daily. 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 Followed by 20 mg by mouth daily taken with food. 42 Tablet 025 2024 Active triamcinolone acetonide (KENALOG) 0.1 % CreamIndicatio ns:Itching Apply to affected area 2 times daily. 15 Gram 025 Active hydrOXYzine pamoate (VISTARIL) 25 mg capsuleIndicat ions:Itching Take 1 Capsule (25 mg) by mouth daily at bedtime. 14 Capsule 025 Active valACYclovir (VALTREX) 1 gram tablet Take 1,000 mg by mouth daily. 022 2024 Discontinued betamethasone, augmented (DIPROLENE-AF) 0.05 % CreamIndicatio ns:Eczema, unspecified type Apply to affected area 2 times daily. 60 Gram 023 2024 Discontinued ALPRAZolam (XANAX) 0.25 mg tablet Take 1 Tablet by mouth 3 times daily. 024 2024 Discontinued(O ther) triamcinolone acetonide (KENALOG) 0.1 % Cream Apply to affected area 2 times daily. 15 Gram 025 2024 Discontinued(R eorder) Active Problems Problem Noted Date Diagnosed Date Hx of migraine headaches 12/13/2022 Eczema 12/13/2022 Mixed anxiety and depressive disorder 12/12/2022 History of pulmonary embolism 12/12/2022 Overview (12/12/2022): two episodes. 2000 after 11 months interferon for Hep C. 2nd occurence 2009 - spontaneous. Attention deficit disorder (ADD) in adult 2022 Spondylosis of lumbar region without myelopathy or radiculopathy 12/12/2022 Current every day vaping 12/12/2022 History of hepatitis C 12/12/2022 Overview (12/12/2022): levels undeterctable since treatment in 1999. Hypertensive disorder 02/01/2022 Hypogonadism in male 02/01/2022 Overactive bladder 12/21/2021 Resolved Problems Problem Noted Date Diagnosed Date Resolved Date Pulmonary embolism 08/01/2014 4 Encounters Date Type Department Care Team Description 07/29/2024 9:30 AM CDT Office Visit [facility] [employer] [place] [address] [place] [phone] Nga Hernandez MD Itching (Primary Dx); Bug bite, initial encounter; Thumb pain, left 07/22/2024 2:30 PM CDT Office Visit 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 (CMS/HCC) (Primary Dx); Hypertension, unspecified type; History of pulmonary embolism; Spondylosis of lumbar region without myelopathy or radiculopathy; Herpes simplex disease 06/29/2024 External Device Data STL ABSTRACTION Provider, Abstract 06/29/2024 External Device Data ST[place] ABSTRACTION Provider, Abstract 06/26/2024 External Device Data [facility] ABSTRACTION Provider, Abstract 06/25/2024 External Device Data [place] ABSTRACTION Provider, Abstract 06/15/2024 External Device Data ST[place] ABSTRACTION Provider, Abstract 05/25/2024 10:30 AM [employer] Office Visit [facility] [employer] [place] [address] [place] [address] Nga Hernandez MD Hypertension, unspecified type (Primary Dx); Skin lesion; Sebaceous cyst; Screening for condition; Left eye injury, initial encounter 05/12/2024 Refill [facility] [employer] [place] [address] [phone] Nga Hernandez MD from Last 3 Months Immunizations Immunization Administration [...] Cigarettes Smokeless Tobacco: Never Tobacco Cessation:Counseling Given: Not Answered Alcohol Use Standard Drinks/Week Comments Never 0 [...] Sign Reading Time Taken Comments Blood Pressure 118/76 07/29/2024 9:45 AM CDT Pulse 70 07/29/2024 9:45 AM CDT Temperature 36.6 C (97.9 F) 07/22/2024 2:38 PM CDT Respiratory Rate 18 07/29/2024 9:45 AM CDT Oxygen Saturation 97% 07/29/2024 9:45 AM CDT Inhaled Oxygen Concentration - - Weight 94 kg (207 lb 3.2 oz) 07/29/2024 9:45 AM CDT Height 175.3 cm (5' 9 ) 07/29/2024 9:45 AM CDT Body Mass Index 30.6 07/29/2024 9:45 AM CDT Plan of Treatment Upcoming Encounters Date Type Department Care Team (Late st Contact Info) Description 10/11/2024 1:20 PM CDT Office Visit [facility] [employer] [place] [address] [place] [address] 11/22/2024 2:30 PM CDT Office Visit [facility] [employer] [place] [address] [place] [phone] [place], [place]P [address] [facility] [address] [place] [address] Health Maintenance Due Date Last Done Comments [...] on file Group ID:[id number] Type:RX Commercial Address: [place], [place] ALLEGIANCE OPEN ACCESS ALLEGIANCE OPEN ACCESS Care Teams Teacher Of Gifted Students Relationship Specialty Start Date End Date Nga Hernandez MD [address] [place] [address] PCP - General Internal Medicine 09/16/23
--- OUTSIDE RECORDS SUMMARY | 2024-08-01 16:00 | XMS_ITS | Clinical Summary ---
Author Organization [facility] Address [address] [place] [address] Phone Care Team Providers Care Steel Erecting Pusher Name Role Phone Tello Denton MD Primary [...] Disorder 30 Capsule 06/22/19 25 025 Active Problems Problem Noted Date Diagnosed Date Attention deficit hyperactivity disorder, combin ed type 01/28/2023 Generalized anxiety disorder 05/10/2021 Mixed bipolar I disorder 12/21/2020 Encounters Date Type Department Care Team Description 07/26/2024 Telephone [facility] [address] [place] [address] [phone] Era Todd APN, JOSE ALFREDO 05/09/2024 Refill [facility] [address] [place] [address] [phone] Mallika Jung APRN, CNP Medication Refill 05/06/2024 11:00 AM COOK APPRENTICE Office Visit [facility] [address] [place] [address] [phone] Mallika Jung APRN, TOY PAINTER Mixed bipolar I disorder (HCC) (Primary Dx); [...] Comments Blood Pressure 146/83 05/06/2024 11:21 AM COOK APPRENTICE Pulse 93 05/06/2024 11:11 AM COOK APPRENTICE Temperature - - Respiratory Rate 20 05/06/2024 11:11 AM COOK APPRENTICE Oxygen Saturation 100% 05/06/2024 11:11 AM COOK APPRENTICE Inhaled Oxygen Concentration - - Weight 97.5 kg (215 lb) 05/06/2024 11:11 AM COOK APPRENTICE Height 175.3 cm (5' 9 ) 05/06/2024 11:11 AM COOK APPRENTICE Body Mass Index 31.75 05/06/2024 11:11 AM COOK APPRENTICE Plan of Treatment Upcoming Encounters Date Type Department Care Team (Late st Contact Info) Description 08/02/2024 4:00 PM CDT Office Visit [facility] [address] [place] [phone] Era Todd, STEAM AND GAS TURBINE ASSEMBLER, TOY PAINTER [address] [place] [address] Health Maintenance Due Date Last Done Comments [...] patient's age to complete this topic [place] [address] [address] [facility] Care Teams Steel Erecting Pusher Relationship Specialty Start Date End Date Tello Denton MD [address] [place] [address] PCP - General Internal Medicine 01/30/24
--- OUTSIDE RECORDS SUMMARY | 2024-08-01 16:00 | XMS_ITS | Clinical Summary ---
Author Organization [facility] Address [address] [place] [address] Care Team Providers Care Director Supplier Quality Name Role Phone Unknown, Notinfile Unavailable Unavailable Nga Hernandez MD Primary Care Provider [phone] Allergies No known active allergies Medications metoclopramide [...] tablet TAKE 1 TABLET BY MOUTH DAILY A37PSPE, THEN INCREASE TO 2 TABLETS DAILY 2 [...] on file Legal Sex Male 11:35 PM RFID SPECIALIST Gender Identity Not on file Sexual Orientation Not on file Obstetrics History Last Filed Vital Signs Vital Sign Reading Time Taken Comments Blood Pressure 103/63 06/27/2018 12:30 AM RFID SPECIALIST Pulse 62 06/27/2018 12:30 AM RFID SPECIALIST Temperature 36.6 C (97.9 F) 06/26/2018 8:19 PM RFID SPECIALIST Respiratory Rate 16 06/27/2018 12:30 AM RFID SPECIALIST Oxygen Saturation 100% 06/27/2018 12:30 AM RFID SPECIALIST Inhaled Oxygen Concentration - - Weight 90.7 kg (200 lb) 06/26/2018 8:19 PM RFID SPECIALIST Height 175.3 cm (5' 9 ) 06/26/2018 8:19 PM RFID SPECIALIST Body Mass Index 29.53 06/26/2018 8:19 PM RFID SPECIALIST Plan of Treatment Health Maintenance Due Date Last Done Comments Colon Cancer Screening-Colonoscopy 1976 Depression Screening 1976 Regular Well Visit/Exam 18-64 1994 Pneumococcal vaccine <65 (1 of 2 - PCV) 08/30/1995 Covid-19 Vaccine (2023-2 5 season) 2023 04/23/2021, 04/12/2021, 06/22/2020, Additional history exists Influenza Vaccine (Season Ended) 2024 02/08/2021, 12/29/2017, 01/23/2017, Additional history exists DTaP/Tdap/Td Vaccine (4 - Td or Tdap) 07/20/2028 07/20/2018, 12/07/2014, 04/21/2008 Hepatitis C Screening Completed 02/01/2022 Insurance [facility] CHOICE PLUS [facility] HMO/PPO Address: [address] [address] [place] [address] [employer] Care Teams Director Supplier Quality Relationship Specialty [place] [address] [place] [address] PCP - General Internal Medicine 12/16/23 Unknown, Notinfile 11/26/21
--- OUTSIDE RECORDS SUMMARY | 2024-08-01 16:00 | XMS_ITS | Continuity of Care Document ---
Author Organization [facility] Address [address] [place] [address] Phone Care Team Providers Care Sccm Administrator Name Role Phone Talon Ambrose Unavailable Unavailable Advance Directives Directive Yes / No Effective Date File Name No Information Encounters Encounter Description Practice Location Reason(s) For Visit Diagnoses Date Provider Providers Copied on Encounter [facility], [address] [place] [address], [facility], tel:[phone] *[facility] No Information Arnol Hanley. [address] [place] [address], [facility], [place]. tel:[phone] Family History Family Member Type Diagnosis Age [...]
--- OUTSIDE RECORDS SUMMARY | 2024-08-01 16:00 | XMS_ITS | Data Portability ---
Author Organization [place] [facility] - [facility] Address [address] [facility] [address] [place] [address] Assessment Encounter Date Assessment Date Assessment LastModified [...] By Organization Details Last Modified Time 09/11/2021 [id number] epilepsy: care instructions [email or web address] Not available 09/11/2021 [...] Pt also agrees that me, and the [facility] Team are my treating physicians [...] and management plan. I was available via text/email/phone/H2Mob during the patient's evaluation. I reviewed the patient's pertinent studies (labs/x-rays/EKG/e tc.). Not available 09/13/2021 01:32:58 09/14/2021 [id number] epilepsy: care instructions [email or web address] Not available 09/14/2021 [...] Pt also agrees that me, and the [facility] Team are my treating physicians [...] and management plan. I was available via text/email/phone/H2M[employer] during the patient's evaluation. I reviewed the patient's pertinent studies (labs/x-rays/EKG/e tc.). Not available 09/18/2021 05:31:44 06/11/2022 [id number] I have discussed the risks and benefits [...] Pt also agrees that me, and the [facility] Team are my treating physicians [...] SNOMED-CT Code Diagnosis ICD10 Code Diagnosis Note [id number] MD [facility] [address] [place] [address],[address] [place] [address] 09/11/2021 15:21:21 09/11/2021 15:45:14 Chronic hepatitis C 980860959 B18.2 Seizure disorder 1315754 02 G40.909 [id number] MD [facility] [address] [place] [address] 09/14/2021 10:55:45 09/14/2021 13:37:27 Chronic hepatitis C 952063470 B18.2 Seizure disorder 0038184 02 G40.909 [id number] Tray Isaacs MD [facility] [address] [place] [address] 06/11/2022 14:07:25 10/08/2022 19:08:18 Seizure disorder 051730296 G40.909 Chronic hepatitis C 1283 85951 B18.2 Health Concerns Section Related Observation LastModified by Organization Detai ls LastModified Time None Recorded Concern Status LastModified by Organization Details LastModified Time None Recorded Advance Directives Directive None Recorded Payers Encounter Date Sequence Insurance Name Policy Number Policy Kaba Covered Member ID Kaba Member ID Guarantor Name 09/11/2021 1 [facility] [id number] Homero Arechiga [id number] Homero Arechiga 09/14/2021 1 [facility] [id number] Homero Arechiga [id number] Homero Arechiga 06/11/2022 1 [facility] Rosario Arechiga [id number] Homero Arechiga Notes Date Note Type Note [...] C AND SEIZURES Tray Isaacs MD [address], [place], [address], [facility] 09/13/2021 01:33:03 09/14/2021 text/html The [...] Isaacs MD [address], [address], [place], [address], [facility] - [facility] 09/18/2021 05:31:51 [...] Isaacs MD [address], [address], [place], [address], [facility] - [facility] 10/08/2022 19:08:17
--- OUTSIDE RECORDS SUMMARY | 2024-08-01 16:00 | XMS_ITS | Referral Summary ---
Author Organization [facility] Address [address] [place] [address] Care Team Providers Care Vp Patient Name Role Phone Unknown, Notinfile Unavailable Unavailable Nga Hernandez MD Primary Care Provider [phone] Allergies No known active allergies Medications metoclopramide [...] tablet TAKE 1 TABLET BY MOUTH DAILY A92HDCV, THEN INCREASE TO 2 TABLETS DAILY 2 [...] on file Legal Sex Male 11:35 PM BLANCHING MACHINE OPERATOR Gender Identity Not on file Sexual Orientation Not on file Last Filed Vital Signs Vital Sign Reading Time Taken Comments Blood Pressure 103/63 06/27/2018 12:30 AM BLANCHING MACHINE OPERATOR Pulse 62 06/27/2018 12:30 AM BLANCHING MACHINE OPERATOR Temperature 36.6 C (97.9 F) 06/26/2018 8:19 PM BLANCHING MACHINE OPERATOR Respiratory Rate 16 06/27/2018 12:30 AM BLANCHING MACHINE OPERATOR Oxygen Saturation 100% 06/27/2018 12:30 AM BLANCHING MACHINE OPERATOR Inhaled Oxygen Concentration - - Weight 90.7 kg (200 lb) 06/26/2018 8:19 PM BLANCHING MACHINE OPERATOR Height 175.3 cm (5' 9 ) 06/26/2018 8:19 PM BLANCHING MACHINE OPERATOR Body Mass Index 29.53 06/26/2018 8:19 PM BLANCHING MACHINE OPERATOR Plan of Treatment Not on file Insurance [facility] UHC CHOICE PLUS CIGNA ALLEGIANCE [employer] [facility]PP[facility] Address: [facility] [id number] [place] [address] Care Teams Vp Patient Relationship Specialty [place] [address] [place] [address] PCP - General Internal Medicine 12/16/23 Unknown, Notinfile 11/26/21
[2024-08-01 16:05] VITALS: BP 135/82; PULSE 102; RESP 16; TEMP 36.2; O2SAT 100
--- OUTSIDE RECORDS SUMMARY | 2024-08-01 16:15 | XMS_ITS | CONTINUITY OF CARE DOCUMENT ---
Author Name ren mcclure Address Unknown Organization [facility] Address [address] [address] [place] [address] Phone [phone] Care Team Providers Care Sampling Expert Name Role Phone Adan Peñaloza MD Unavailable DINAH FRITZ MD Unavailable WOJCIECH FLORES MD Unavailable [phone] INSURANCE PROVIDERS Payer name Policy type / Coverage type [place] red constitution party ID [facility] HiringBoss [id number]
--- OUTSIDE RECORDS SUMMARY | 2024-08-01 16:15 | XMS_ITS | Continuity of Care Document ---
Author Organization [facility] Address [address] [place] [address] Phone Care Team Providers Care New Autos Delivery Driver Name Role Phone Talon Ambrose Unavailable Unavailable Advance Directives Directive Yes / No Effective Date File Name No Information Encounters Encounter Description Practice Location Reason(s) For Visit Diagnoses Date Provider Providers Copied on Encounter [facility], [address] [place] [address], [facility], tel:[phone] *[facility] No Information Arnol Hanley. [address] [place] [address], [facility], [place]. tel:[phone] Family History Family Member Type Diagnosis Age At Onset No Information Payers Payer name Insurance type Covered alliance party ID Authoriza tion(s) No Information Social [...]
--- NOTE | 2024-08-01 16:26 | ED.FALL ---
HPI - Fall General Chief Complaint: Fall Stated Complaint: Pain left thumb-upper back -fell yesterday Time Seen by Provider: 08/01/24 16:06 Source: patient Mode of arrival: ambulatory Limitations: no limitations History of Present Illness HPI Narrative: This is a 48 year old male that presents to the ER after a fall yesterday. Reports he was carrying a dresser and tripped over something on the floor. This caused him to fall onto his left side. Reports hitting his head. He did not lose consciousness. Reports he has been having trouble with his left thumb for quite some time. This also exacerbated his some pain. He also reports neck and back pain. Denies vision changes, vomiting, focal numbness or weakness. Related Data Home Medications ?Medication ?Instructions ?Recorded ?Confirmed ?Last Taken ?Type hydrocodone 10 mg-acetaminophen 1 tablet PO Q6H PRN 08/25/20 09/10/21 Unknown History 325 mg tablet rivaroxaban 20 mg tablet (Xarelto) 20 mg PO DAILY 08/25/20 09/10/21 Unknown History B-complex with vitamin C 1 tablet PO DAILY 06/22/21 09/10/21 Unknown History DHNO-5-YQL-trqabvlh-nmbisqch-pmbtprs-bromelain-herbal cap PO 06/22/21 09/10/21 Unknown History 1,400 mg capsule desvenlafaxine succinate 100 mg 100 mg PO DAILY 06/22/21 09/10/21 Unknown History tablet,extended release 24 hr (Pristiq) lisdexamfetamine 60 mg capsule 60 mg PO DAILY 06/22/21 09/10/21 Unknown History (Gabriella) testosterone enanthate 50 mg/0.5 50 mg subcut WEEKLY 06/22/21 09/10/21 Unknown History mL subcutaneous auto-injector clonazepam 1 mg tablet 1 mg PO BID 09/10/21 09/10/21 Unknown History semaglutide (weight loss) 0.25 0.25 mg subcut WEEKLY 10/14/23 Unknown History mg/0.5 mL subcutaneous pen injector (Wegovjason) alprazolam 0.5 mg tablet (Xanax) 0.5 mg PO QHS PRN 05/05/24 05/05/24 Unknown History hydrochlorothiazide 25 mg tablet 25 mg PO DAILY 05/05/24 05/05/24 Unknown History hydrocodone 10 mg-acetaminophen 1 tablet PO QHS PRN 05/05/24 05/05/24 Unknown History 300 mg tablet lamotrigine 100 mg tablet 100 mg PO DAILY 05/05/24 05/05/24 Unknown History lisdexamfetamine 60 mg capsule 60 mg PO DAILY 05/05/24 05/05/24 Unknown History (Vyvanse) pantoprazole 20 mg tablet,delayed 20 mg PO QAM 05/05/24 05/05/24 Unknown History release rivaroxaban 20 mg tablet (Xarelto) 20 mg PO DAILY 05/05/24 05/05/24 Unknown History Allergies Allergy/AdvReac Type Severity Reaction Status Date / Time [facility] AdvReac Intermediate Abdominal Verified 08/01/24 15:58 Pain Review of Systems Review of Systems: CONSTITUTIONAL: Denies fever EYES: Denies visual changes GASTROINTESTINAL: Denies vomiting MUSCULOSKELETAL: Reports back pain, joint pain, and myalgia. NEUROLOGIC: Denies numbness, or weakness. PSYCHIATRIC: Reports anxiety All systems reviewed & are unremarkable except as noted in HPI and below PMFSH Past Medical History Medical History History of hepatitis C s/p treatment Pulmonary embolism Dvt femoral (deep venous thrombosis) Social History Social History Social History: vape Smoking status: Former smoker Alcohol intake: never Substance use: current Last use: states former Do You Feel Safe in your Home?: Yes Lack of Transportation: No Lack of Food: Sometimes True Current Housing: I Have Housing Concerned About Future Housing: No Difficulty Paying Gas/Electric Bills: YES Difficulty Paying for Meds: No Currently Unemployed: No Education: High School Diploma/GED Difficulty w/ Childcare or Family Care: No Occupation/Education: occupation Additional occupation/education comments: [employer] Ex[employer] Narrative: GENERAL: Well-appearing, well-nourished, and in no acute distress. HEAD: Normocephalic, atraumatic. EYES: PERRLA and EOMI. ENT: Nares clear, no rhinorrhea or epistaxis. Mucous membranes moist. Oropharynx without tonsillar hypertrophy exudate or other lesions. Bilateral TMs pearly alcocer non-bulging NECK: Supple. No adenopathy or masses. CHEST: Clear to auscultation. No respiratory distress. No wheezes rales or rhonchi HEART: Regular rate and rhythm. No murmur heard. Normal peripheral pulses. ABDOMEN: Soft, nontender, nondistended, normal active bowel sounds. EXTREMITIES: Normal range of motion. No edema or obvious deformity. SKIN: Warm, dry, no rash. NEURO: No focal deficits. Alert and oriented x3. Cranial nerves 2-12 grossly intact. Normal gait PSYCH: Normal mood and affect Course Course Emergency Course: Patient updated on his workup and agrees with plan of care Vital Signs Vital signs: Vital Signs Temperature 97.2 F L 08/01/24 16:05 Pulse Rate 102 H 08/01/24 16:05 Respiratory Rate 16 08/01/24 16:05 Blood Pressure 135/82 08/01/24 16:05 Pulse Oximetry 100 08/01/24 16:05 Temperature 97.2 F L 08/01/24 16:05 Pulse Rate 102 H 08/01/24 16:05 Respiratory Rate 16 08/01/24 16:05 Blood Pressure 135/82 08/01/24 16:05 Pulse Oximetry 100 08/01/24 16:05 MDM - Fall MDM Narrative Medical decision making narrative: Patient presents to the emergency department after a fall yesterday with head injury, neck pain, back pain, left hand pain. He is neurologically intact. CT brain, cervical, thoracic, lumbar spine without acute findings. Left hand x-ray shows a chronic deformity. No acute osseous abnormalities. Patient updated on his workup and agrees with plan of care. He is to follow up with primary provider. He was given warnings to return to the ER Differential Diagnosis Differential diagnosis: Likely compression fracture, concussion without loss of consciousness and other (Subdural hematoma, thumb sprain, contusion, arthritis, hand fracture) Imaging Data Radiologist's impression: ITS Impressions Head CT 08/01/24 17:02 IMPRESSION: No acute intracranial process. Hand X-Ray 08/01/24 17:20 IMPRESSION: No acute osseous finding in the left hand. 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 Cervical Spine CT 08/01/24 17:27 IMPRESSION: No acute fracture or traumatic malalignment in the cervical spine. Thoracic/Lumbar Spine CT 08/01/24 17:30 IMPRESSION: No acute fracture or traumatic malalignment detected in the thoracic or lumbar spine Critical Care Time Critical Care Time Critical Care Time: No Discharge Plan Discharge Clinical Impression: Fall, Pain of left thumb, Back pain, Head injury Patient Disposition: Home Condition: Stable Instructions: Head Injury (ED), Contusion in Adults (ED), Arthralgia (ED) Additional Instructions: Return to the emergency department if you experience fever, chest pain, shortness of breath, abdominal pain with nausea and vomiting, weakness, numbness, or any other symptoms that are concerning to you. Rest. Ice to the area. Fmcv-rqm-kpidynb pain medication as needed. Prescribed pain medication as needed Follow up with your orthopedics doctor Patient Language: Chinese Prescriptions: No Action hydrocodone-acetaminophen 10-325 mg tablet 1 tablet PO Q6H PRN Xarelto 20 mg tablet 20 mg PO DAILY Rx Instructions: must administer with evening meal Vyvanse 60 mg capsule 60 mg PO DAILY desvenlafaxine succinate [Pristiq] 100 mg tablet extended release 24 hr 100 mg PO DAILY testosterone enanthate 50 mg/0.5 mL auto-injector 50 mg subcut WEEKLY AMANDA/5HTP/caf/arg/chl/br/hb318 1,400 mg capsule PO B-complex with vitamin C Tablet 1 tablet PO DAILY clonazepam 1 mg tablet 1 mg PO BID Xarelto 20 mg tablet 20 mg PO DAILY Rx Instructions: must administer with evening meal hydrochlorothiazide 25 mg tablet 25 mg PO DAILY lisdexamfetamine [Vyvanse] 60 mg capsule 60 mg PO DAILY lamotrigine 100 mg tablet 100 mg PO DAILY hydrocodone-acetaminophen 10-300 mg tablet 1 tablet PO QHS PRN alprazolam [Xanax] 0.5 mg tablet 0.5 mg PO QHS PRN pantoprazole 20 mg tablet,delayed release (DR/EC) 20 mg PO QAM Wegovy 0.25 mg/0.5 mL pen injector 0.25 mg subcut WEEKLY Rx Instructions: administer weeks 1 through 4 of therapy Nurtec ODT 75 mg tablet,disintegrating See Rx Instructions .ROUTE .COMPLEX Qty: 16 3RF Dose Instruction: TAKE 1 TABLET BY MOUTH ONCE NEEDED FOR MIGRANE HEADACHE MAX 1 DOSE/24 HOURS OR 1530 DAYS Rx Instructions: TAKE 1 TABLET BY MOUTH ONCE NEEDED FOR MIGRANE HEADACHE MAX 1 DOSE/24 HOURS OR 15/30 DAYS amoxicillin-pot clavulanate 875-125 mg tablet 1 tablet PO Q12H Qty: 20 0RF albuterol sulfate 90 mcg/actuation HFA aerosol inhaler 2 puff inhalation QID PRN (Reason: shortness of breath or wheezing) Qty: 6.7 0RF ondansetron 4 mg tablet,disintegrating 4 mg PO Q8H PRN (Reason: nausea and vomiting) 5 Days Qty: 20 0RF ketorolac 10 mg tablet 10 mg PO Q8H PRN (Reason: pain) 5 Days Qty: 20 0RF Rx Instructions: maximum total duration of 5 days from all oral, intranasal, or parenteral formulations prednisone 50 mg tablet 50 mg PO DAILY 5 Days Qty: 5 0RF acetaminophen 500 mg capsule 1,000 mg PO Q6H PRN (Reason: pain) Qty: 30 0RF oxycodone 5 mg capsule 5 mg PO Q8H PRN (Reason: pain) Qty: 7 0RF Aimovig Autoinjector 140 mg/mL auto-injector 140 mg subcut MONTHLY Qty: 1 5RF Follow-up/Referrals: PHYSICIAN NOT ON STAFF,NONSTAFF [Primary Care Provider] -
[2024-08-01] MEDS: ACETAMINOPHEN 500 MG TABLET 1000 MG PO (16:47)
[2024-08-01] MEDS: oxyCODONE HCL (*CRX) 5 MG TAB IR PO (16:48)
[2024-08-01 18:33] VITALS: BP 134/72; PULSE 78; RESP 18; TEMP 36.9; O2SAT 100
== END 2024-08-01 18:34 | disposition home or self-care (01) ==
PROVIDERS: Emergency Provider Physician Assistant
DX: S09.90XA Unspecified injury of head, initial encounter (principal); S29.9XXA Unspecified injury of thorax, initial encounter; S19.9XXA Unspecified injury of neck, initial encounter; M79.645 Pain in left finger(s); Z86.19 Personal history of other infectious and parasitic diseases; Z86.711 Personal history of pulmonary embolism; Z86.718 Personal history of other venous thrombosis and embolism; Z87.891 Personal history of nicotine dependence; R93.6 Abnormal findings on diagnostic imaging of limbs; W01.0XXA Fall on same level from slipping, tripping and stumbling without subsequent striking against object, initial encounter
CPT/HCPCS: 70450; 72125; 72128; 72131; 73130; 99284; A9270

== ENCOUNTER 2024-08-04 15:04 | Outpatient (CLI) | payer OTHER, SELFPAY ==
--- NOTE | ~2024-08-04 | XR_ITS ---
3 VIEWS LUMBAR SPINE Ordering provider: Zachary Garza, History: . radiculopathy cervical region . Comparison: None. FINDINGS: VERTEBRAL BODIES: No visible fracture or subluxation. DISK SPACES: Normal. SOFT TISSUES: Normal. IMPRESSION: No acute osseous abnormality lumbar spine. Reviewed, dictated and finalized at location A.
--- NOTE | ~2024-08-04 | XR_ITS ---
[id number] Ordering provider: Zachary Garza, History: . radiculopathy cervical region . Comparison: None. FINDINGS: VERTEBRAL BODIES: Normal height and alignment. No visible fracture or subluxation. The dens is intact . DISK SPACES: Well maintained. PARASPINOUS SOFT TISSUES: No prevertebral soft tissue swelling. IMPRESSION: No acute osseous abnormality cervical spine. Reviewed, dictated and finalized at location A.
--- OUTSIDE RECORDS SUMMARY | 2024-08-04 16:24 | XMS_ITS | Continuity of Care Document ---
Author Organization [facility] Address [address] [place] [address] Phone Care Team Providers Care Boatwright Name Role Phone Talon Ambrose Unavailable Unavailable Advance Directives Directive Yes / No Effective Date File Name No Information Encounters Encounter Description Practice Location Reason(s) For Visit Diagnoses Date Provider Providers Copied on Encounter [facility], [address] [place] [address], [facility], tel:[phone] *Ilya R[facility] No Information Arnol Hanley. [address] [place] [address], [facility], [place]. tel:[phone] Family History Family Member Type Diagnosis Age At Onset No Information Payers Payer name Insurance type Covered democrat ID Authoriza tion(s) No Information Social History [...]
--- OUTSIDE RECORDS SUMMARY | 2024-08-04 16:24 | XMS_ITS | CONTINUITY OF CARE DOCUMENT ---
Author Name ren mcclure Address Unknown Organization [facility] Address [address] [place] [address] Phone [phone] Care Team Providers Care Insulation Board Calender Operator Name Role Phone Adan Peñaloza MD Unavailable DINAH FRITZ MD Unavailable WOJCIECH FLORES MD Unavailable INSURANCE PROVIDERS Payer name Policy type / Coverage type [place] red alliance party ID [facility] [employer] [id number]
--- OUTSIDE RECORDS SUMMARY | 2024-08-04 16:24 | XMS_ITS | Clinical Summary ---
Author Organization [facility] Address [address] [place] [address] Care Team Providers Care Filer And Sander Name Role Phone Nga Hernandez MD Primary Care Provider [phone] Allergies Active Allergy Reactions Criticality Noted Date [...] 024 Active fluticasone propionate (FLONASE) 50 mcg/spray [place], Suspension nasal inhalerIndicat ions:Acute non-recurrent maxillary sinusitis [...] Encounters Date Type Department Care Team Description 08/03/2024 External Device Data STL ABSTRACTION Provider, Abstract 07/29/2024 9:30 AM CDT Office Visit [facility] [employer] [place] [address] [place] [address] Nga Hernandez MD Itching (Primary Dx); Bug bite, initial encounter; Thumb pain, left 07/22/2024 2:30 PM CDT Office Visit [facility] [place] [address] [place] [phone] Isatu Laek ANP Recurrent acute deep vein thrombosis (DVT) [...] STL ABSTRACTION Provider, Abstract 05/25/2024 10:30 AM RADIO TIME SALESPERSON Office Visit [facility] [employer] [place] [address] [place] [address] Nga Hernandez MD Hypertension, unspecified type (Primary Dx); Skin lesion; Sebaceous cyst; Screening for condition; Left eye injury, initial encounter 05/12/2024 Refill [facility] [employer] [place] [address] [place] [place] [address] Nga Hernandez MD from Last 3 Months [...] Description 10/11/2024 1:20 PM CDT Office Visit [facility] [place] [address] [place] [address] 11/22/2024 2:30 PM CDT Office Visit [facility] [employer] [place] [address] [place] [phone] Is[place], ANP [address] [facility] Sarah Nixon [facility] [address] [place] [address] Health Maintenance Due Date Last [...] on file Group ID:[id number] Type:RX Commercial Address: [place], [place] [facility] OPEN ACCESS [facility] OPEN ACCESS Care Teams Filer And Sander Relationship Specialty Start Date End Date Nga Hernandez MD [address] [place] [address] PCP - General Internal Medicine 09/16/23
--- OUTSIDE RECORDS SUMMARY | 2024-08-04 16:24 | XMS_ITS | Encounter Summary ---
Author Organization [employer] Address [address] [place] [address] Care Team Providers Care Public Policy Manager Name Role Phone Nga Hernandez MD Primary Care Provider [phone] Encounter Details Date Type Department Care Team (Late st Contact Info) Description 08/03/2024 External Device Data STL ABSTRACTION Provider, Abstract NO ADDRESS ON FILE Social History Tobacco Use Types Packs/Day Years Used Date Smoking Tobacco: Former Cigarettes Smokeless Tobacco: Never Alcohol Use Standard Drinks/Week Comments Never 0 (1 standard drink = 0.6 oz pur e alcohol) Sex and Gender Information Value Date Recorded Sex Assigned at Male 12/17/2022 7:29 PM CDT Legal Sex Male 2:53 PM CDT Gender Identity Male 12/17/2022 7:29 PM CDT Sexual Orientation Straight 12/17/2022 7: 29 PM CDT documented as of this encounter Plan of Treatment Upcoming Encounters Date Type Department Care Team (Late st Contact Info) Description 10/11/2024 1:20 PM CDT Office Visit [facility] [employer] [address] [place] [phone] 11/22/2024 2:30 PM CDT Office Visit [facility] [address] [place] [address] [place], ANP [address] [facility] Sarah Nixon [facility] [address] [place] [address] documented as of this encounter Visit Diagnoses Not on filedocumented in this encounter Additional Health Concerns Assessment Noted Time PHQ-9 Depression Total Score: 2 12/11/19 24 11:00 AM CDT documented as of this encounter Care Teams Public Policy Manager Relationship Specialty Start Date End Date Nga Hernandez MD [address] [place] [phone] PCP - General Internal Medicine 09/16/23 documented as of this encounter
--- OUTSIDE RECORDS SUMMARY | 2024-08-04 16:24 | XMS_ITS | Clinical Summary ---
Author Organization [facility] Address [address] [place] [address] Care Team Providers Care Datacap Developer Name Role Phone Unknown, Notinfile Unavailable Unavailable Nga Hernandez MD Primary Care Provider [phone] Allergies No known active allergies Medications metoclopramide [...] tablet TAKE 1 TABLET BY MOUTH DAILY [id number], THEN INCREASE TO 2 TABLETS DAILY 2 [...] on file Legal Sex Male 11:35 PM MACHINE SNELLER Gender Identity Not on file Sexual Orientation Not on file Obstetrics History Last Filed Vital Signs Vital Sign Reading Time Taken Comments Blood Pressure 103/63 06/27/2018 12:30 AM MACHINE SNELLER Pulse 62 06/27/2018 12:30 AM MACHINE SNELLER Temperature 36.6 C (97.9 F) 06/26/2018 8:19 PM MACHINE SNELLER Respiratory Rate 16 06/27/2018 12:30 AM MACHINE SNELLER Oxygen Saturation 100% 06/27/2018 12:30 AM MACHINE SNELLER Inhaled Oxygen Concentration - - Weight 90.7 kg (200 lb) 06/26/2018 8:19 PM MACHINE SNELLER Height 175.3 cm (5' 9 ) 06/26/2018 8:19 PM MACHINE SNELLER Body Mass Index 29.53 06/26/2018 8:19 PM MACHINE SNELLER Plan of Treatment Health Maintenance Due Date [...] Hepatitis C Screening Completed 02/01/2022 Insurance [facility] CHOICE PLUS [employer]IG[employer] ALLEGIANCE C[employer]ANCE Care Teams Datacap Developer Relationship Specialty [place] [address] [place] [address] PCP - General Internal Medicine 12/16/23 Unknown, Notinfile 11/26/21
--- OUTSIDE RECORDS SUMMARY | 2024-08-04 16:25 | XMS_ITS | Data Portability ---
Author Organization [place] [facility] Address [address] [facility] [address] [place] [address] Assessment Encounter Date Assessment Date Assessment LastModified [...] By Organization Details Last Modified Time 09/11/2021 [id number] epilepsy: care instructions [email or web address] Not available 09/11/2021 [...] Pt also agrees that me, and the [facility] Team are my treating physicians and [...] and management plan. I was available via text/email/phone/[employer] during the patient's evaluation. I reviewed the patient's pertinent studies (labs/x-rays/EKG/e tc.). Not available 09/13/2021 01:32:58 09/14/2021 [id number] epilepsy: care instructions [email or web address] Not available 09/14/2021 [...] Pt also agrees that me, and the [facility] Team are my treating physicians and [...] and management plan. I was available via text/email/phone/[employer] during the patient's evaluation. I reviewed the patient's pertinent studies (labs/x-rays/EKG/e tc.). Not available 09/18/2021 05:31:44 06/11/2022 [id number] I have discussed the risks and benefits [...] Pt also agrees that me, and the [facility] Care Team are my treating physicians [...] SNOMED-CT Code Diagnosis ICD10 Code Diagnosis Note [id number] MD [facility] [address] [place] [address],[address] [place] [address] 09/11/2021 15:21:21 09/11/2021 15:45:14 Chronic hepatitis C 653017500 B18.2 Seizure disorder 6863388 02 G40.909 [id number] MD [facility] [address] [facility],[address] [place] [address] 09/14/2021 10:55:45 09/14/2021 13:37:27 Chronic hepatitis C 893284263 B18.2 Seizure disorder 9239797 02 G40.909 [id number] Tray Isaacs MD [facility] [address] [place] [address] 06/11/2022 14:07:25 10/08/2022 19:08:18 Seizure disorder [id number] G40.909 Chronic hepatitis C 1283 80478 B18.2 Health Concerns Section Related Observation LastModified by Organization Detai ls LastModified Time None Recorded Concern Status LastModified by Organization Details LastModified Time None Recorded Advance Directives Directive None Recorded Payers Encounter Date Sequence Insurance Name Policy Number Policy Kaba Covered Member ID Kaba Member ID Guarantor Name 09/11/2021 1 [facility] [id number] Homero Arechiga [id number] Homero Arechiga 09/14/2021 1 [facility] [id number] Homero Arechiga [id number] Homero Arechiga 06/11/2022 1 [facility] ([facility] Rosario Arechiga [id number] Homero Arechiga Notes Date Note Type Note [...] C AND SEIZURES Tray Isaacs MD [address], [place], [address], [facility] 09/13/2021 01:33:03 09/14/2021 text/html The [...] Isaacs MD [address], [address], [place], [address], [facility] 09/18/2021 05:31:51 [...] Isaacs MD [address], [address], [place], [address], [facility] - [facility] 10/08/2022 19:08:17
--- OUTSIDE RECORDS SUMMARY | 2024-08-04 16:25 | XMS_ITS | Data Portability ---
Author Organization [facility] Orgdot, Main Office Address [address] [place] [address] Assessment No assessment recorded. Plan of Treatment Reminders Order Date Submit Date Provider Last Modified By Organization Details Last Modified Time Details Appointments None recorded . Lab urinalys is, dipstick 2022 023 [email or web address] [facility], [address] [facility] [address], [place], [address], 3 11:22:15 CBC 2022 023 [facility] (Lab), [address] [place], [address], 3 14:17:43 CMP, serum or plasma 2022 023 [facility] (Lab), [address] [place], [address], 3 14:17:43 PSA, total, serum or plasma 2022 023 [email or web address] [facility] (Lab), [address] [place], [address], 4 12:41:31 testoste matthew, free + total, serum 2022 023 [facility] (Lab), [address] [place], [address], 3 13:23:36 estradio l, serum 2022 023 [facility] (Lab), [address] [facility], [place], [address], 13:23:37 Referral None recorded . Procedures None recorded . Surgeries None recorded . Imaging US, bladder 2022 023 [email or web address] [facility] [place], [address] [place], [place] [address]e [address], [place], [address], 11:25:38 Medication Orders None recorded . Patient TargetsNo targets recorded. Patient InstructionsNo instructions recorded. Reason for Referral None Reported. Results Created Date Observation Date Name Description Value Unit Range Abnormal Flag Note LastModifiedBy Organization Detail LastModifiedTime 03/08/2003/08/2021 urina lysis , dipst ick Leukocytes (reference range: negative sesar/ l) Negati ve Not Available [facility], [address], [address], 03/08/2021 11:19:45 03/08/20 21 03/08/2021 urina lysis , dipst ick Nitrite (reference rage: negative mg/dl) negati ve Not Available [facility], [address], 03/08/2021 11:19:45 03/08/20 21 03/08/2021 urina lysis , dipst ick Urobilinogen (reference range: 0.2-1 mg/dl) 0.2 Not Available [facility], [address], [address], 03/08/2021 11:19:45 03/08/20 21 03/08/2021 urina lysis , dipst ick Protein (reference range: negative mg/dl) Negati ve Not Available [facility] [place] [address], [address], [place], [address], 03/08/2021 11:19:45 03/08/20 21 03/08/2021 urina lysis , dipst ick pH (reference range: 5-7) 6.0 Not Available [address], [address], 03/08/2021 11:19:45 03/08/2003/08/2021 urina lysis , dipst ick Blood (reference range: negative Robin/ l) Small Not Available [address], [address], 03/08/2021 11:19:45 03/08/20 21 03/08/2021 urina lysis , dipst ick Specific Devon (reference range: 1.005-1.030) 1.025 Not Available [address], [address], 03/08/2021 11:19:45 03/08/20 21 03/08/2021 urina lysis , dipst ick Ketone (reference range: negative mg/dl) Negati ve Not Available [address], [address], 03/08/2021 11:19:45 03/08/20 21 03/08/2021 urina lysis , dipst ick Bilirubin (reference range: negative mg/dl) Small Not Available [address], [address], 03/08/2021 11:19:45 03/08/2003/08/2021 urina lysis , dipst ick Glucose (reference range: negative mg/dl) Negati ve Not Available [address], [address], [address], 03/08/2021 11:19:45 03/08/20 21 03/08/2021 urina lysis , dipst ick Appearance Clear Not Available [address], [address], 03/08/2021 11:19:45 03/08/2003/08/2021 urina lysis , dipst ick Color Yellow Not Available [address], [address], 03/08/2021 11:19:45 03/29/20 21 03/29/2021 urina lysis , dipst ick Leukocytes (reference range: negative sesar/ l) Negati ve Not Available [address], [address], 03/29/2021 10:47:02 03/29/20 21 03/29/2021 urina lysis , dipst ick Nitrite (reference rage: negative mg/dl) negati ve Not Available [address], [address], 03/29/2021 10:47:02 03/29/20 21 03/29/2021 urina lysis , dipst ick Urobilinogen (reference range: 0.2-1 mg/dl) 0.2 Not Available [address], [address], 03/29/2021 10:47:02 03/29/20 21 03/29/2021 urina lysis , dipst ick Protein (reference range: negative mg/dl) Negati ve Not Available [address], [address], 03/29/2021 10:47:02 03/29/20 21 03/29/2021 urina lysis , dipst ick pH (reference range: 5-7) 5.5 Not Available [address] [address], [place], [address], 03/29/2021 10:47:02 03/29/2003/29/2021 urina lysis , dipst ick Blood (reference range: negative Robin/ l) Small Not Available [address], [address], 03/29/2021 10:47:02 03/29/20 21 03/29/2021 urina lysis , dipst ick Specific Devon (reference range: 1.005-1.030) 1.020 Not Available [address], [address], 03/29/2021 10:47:02 03/29/20 21 03/29/2021 urina lysis , dipst ick Ketone (reference range: negative mg/dl) Negati ve Not Available [address], [address], 03/29/2021 10:47:02 03/29/20 21 03/29/2021 urina lysis , dipst ick Bilirubin (reference range: negative mg/dl) Small Not Available [facility]_[address], [place] [address], [place], [address], 03/29/2021 10:47:02 03/29/20 21 03/29/2021 urina lysis , dipst ick Glucose (reference range: negative mg/dl) Negati ve Not Available [facility]_[address] [address], [place], [address], 03/29/2021 10:47:02 03/29/20 21 03/29/2021 urina lysis , dipst ick Appearance Clear Not Available [facility] _[address] [address], [place], [address], 03/29/2021 10:47:02 11/29/19 23 11/28/2022 urina lysis , dipst ick Leukocytes (reference range: negative sesar/ l) Negati ve Not Available [facility] [address] [facility] [address], [place], [address], 11/28/2022 11:07:19 11/29/19 23 11/28/2022 urina lysis , dipst ick Nitrite (reference rage: negative mg/dl) negati ve Not Available [facility] [address], [place], [address], 11/28/2022 11:07:19 11/29/19 23 11/28/2022 urina lysis , dipst ick Urobilinogen (reference range: 0.2-1 mg/dl) 0.2 Not Available [facility] [address], [place], [address], 11/28/2022 11:07:19 11/29/1911/28/2022 urina lysis , dipst ick Protein (reference range: negative mg/dl) Negati ve Not Available [facility] [address], [place], [address], 11/28/2022 11:07:19 11/29/19 23 11/28/2022 urina lysis , dipst ick pH (reference range: 5-7) 5.5 Not Available s_ [facility] [address], [place], [address], 11/28/2022 11:07:19 11/29/1911/28/2022 urina lysis , dipst ick Blood (reference range: negative Robin/ l) Negati ve Not Available s_g [facility] [address] [place] [address] [address], [place], [address], 11/28/2022 11:07:19 11/29/1911/28/2022 urina lysis , dipst ick Specific Devon (reference range: 1.005-1.030) 1.025 Not Available s _[facility] [address], [place], [address], 11/28/2022 11:07:19 11/29/19 23 11/28/2022 urina lysis , dipst ick Ketone (reference range: negative mg/dl) Negati ve Not Available [facility] [address] [place] [address] [address], [place], [address], 11/28/2022 11:07:19 11/29/19 23 11/28/2022 urina lysis , dipst ick Bilirubin (reference range: negative mg/dl) Negati ve Not Available s_[facility] [address] [place] [address] [address], [place], [address], 11/28/2022 11:07:19 11/29/19 23 11/28/2022 urina lysis , dipst ick Glucose (reference range: negative mg/dl) Negati ve Not Available [facility] [place] [address], [place], [address], 11/28/2022 11:07:19 11/29/19 23 11/28/2022 urina lysis , dipst ick Appearance Clear Not Available [facility] [place] [address] [place], [place] [address], [place], [address], 11/28/2022 11:07:19 11/29/19 23 11/28/2022 urina lysis , dipst ick Color Yellow Not Available [facility] [place] [address] [place] [address], [place], [address], 11/28/2022 11:07:19 01/09/20 21 01/03/2021 sleep study , basel ine diagn ostic polys omnog leigh* No observ ation record ed. [id number] Not Available 06/19/2022 19:12:38 03/08/20 21 03/08/2021 US, bladd er No observ ation record ed. [id number] [facility] [place] [address] [facility], [address], [place], [address], 06/19/2022 19:12:38 11/29/19 23 11/28/2022 US, bladd er No observ ation record ed. [email or web address] [facility] [address] [place] [address], [place], [address], 11/29/2022 14:57:39 Result Notes None recorded. Problems Name Problem SNOMED Code Status Onset Date Resolution Date Notes Provider Name and Address Organization Details Recorded Time Venous thrombosis 051005171 Active Not Available [facility] 3 19:12:04 Testicular hypofuncti on 316995465 Active Not Available [facility] 3 19:12:04 Chest pain 95143216 Active Not Available [facility] 3 19:12:04 Current tear of medial cartilage AND/OR meniscus of knee Active Not Available [facility] 3 19:12:04 Hypertensi ve disorder 24569836 Completed Not Available [facility] 3 19:12:04 Osteoarthr itis 916111917 Active Not Available [facility] 3 19:12:04 Viral hepatitis C 92538328 Active Not Available [facility] 3 19:12:04 Hyperlipid emia 27590238 Active Not Available [facility] 3 19:12:04 Essential hypertensi on 37199830 Active Not Available [facility] 3 19:12:04 Sexually transmitte d infectious disease 3333347 Active Not Available [facility] 3 19:12:04 Pain in limb 47840849 Active Not Available [facility] 3 19:12:04 Male hypogonadi sm 95050819 Active 2022 DILSHAD Chandler - Mel [facility] 3 11:19:07 Notes:Medical History: Subst ance use Bipolar depression/Anxiety/ADHD Migraine headaches Rhinitis Bruxism Obesity with mild OSAHS, AHI = 1, 01/03/21 Hypertension Hyperlipidemia Hepatitis C Hypogonadism PLMD 2 PE/ 5 DVT on Xarelto Osteoarthritis Procedure History: Bilateral Lasik eye surgery 2019 Problem Notes None recorded. Procedures Surgical History None recorded. Imaging Results Imaging Date Name Status LastModified by [facility] Details LastModified Time 01/03/2021 sleep study, baseline diagnostic polysomnogram* completed [id number] Information not available 06/19/2022 19:12:38 03/08/2021 US, bladder completed [id number] [facility] [address], [address], [place], [address], 06/19/2022 19:12:38 11/28/2022 US, bladder completed [email or web address] [facility] [place] [address], [place], [address], 11/29/2022 14:57:39 Procedure Notes None recorded. Medical [...] Not Available Not Available Not Available Fluvirin 6028-7639 45 mcg (15 mcg x 3)/0.5 mL [...] Not Available Not Available Not Available Fluvirin 0144-1292 45 mcg (15 mcg x 3)/0.5 mL [...] 4 75 /min 18 /min 98.6 [degF] 321070. 66 g 122 mm[Hg] 92 mm[Hg] Not Available [facility] 3 19:11:59 Date Recorded Body mass index (BMI) Body height Oxygen saturation Oxygen saturation in Arterial blood by Pulse oximetry Body temperature Body weight Systolic blood pressure Diastolic blood pressure Provider Name and Address Organization Details Last Updated DateTime 1 33.5 kg/m2 175.26 cm 97 % 97 % 98.8 [degF] 016638. 47 g 153 mm[Hg] 89 mm[Hg] Not Available [facility] 3 19:11:59 Date Recorded Body mass index (BMI) Body height Body weight Provider Name and Address Organization Details Last Updated DateTime 03/29/2021 33.5 kg/m2 175.26 cm 355847.47 g Not Available [facility] 06/19/2022 19:12:00 Date Recorded Body weight Body temperature Oxygen saturation Oxygen saturation in Arterial blood by Pulse oximetry Heart rate Systolic blood pressure Diastolic blood pressure Provider Name and Address Organization Details Last Updated DateTime 3 182261. 09 g 97.9 [degF] 98 % 98 % 83 /min 139 mm[Hg] 93 mm[Hg] NATY Rivero [place] [facility] [place] qunb 3 11:06:54 Date Recorded Body mass index (BMI) Body height Provider Name and Address Organization Details Last Updated DateTime 11/28/2022 36.9 kg/m2 175.26 cm Nga Jones MA [facility] [place] qunb 11/28/2022 11:05:40 Social History None recorded. Functional Status None recorded. Mental Status None recorded. Family History Nothing Reported. Medical History No medical history recorded. Immunizations Vaccine Type Date Status Note Provider Nam e and Address Organization Details Recorded Time influenza, unspecified formulation 3 completed Not Available [facility] 06/19/2022 19:12:36 tetanus toxoid, unspecified formulation 1 completed Not Available [facility] 06/19/2022 19:12:36 Influenza, high-dose, trivalent, PF 3 completed Not Available [facility] 06/19/2022 19:12:36 Influenza, high-dose, trivalent, PF 3 completed Not Available [facility] 06/19/2022 19:12:36 Past Encounters Encounter ID Performer Location Encounter Start Date Encounter Closed Date Diagnosis/Indication Diagnosis SNOMED-CT Code Diagnosis ICD10 Code Diagnosis Note [id number] [facility] [address] [address] 11/30/2020 00:00:00 11/30/2020 12:27:55 [id number] [facility] [address] [place] [phone] 03/08/2021 00:00:00 03/08/2021 12:15:21 [id number] [facility] [address] [place] [address] 03/29/2021 00:00:00 03/29/2021 11:26:17 [id number] Primo Jerome MD [facility] [address] [place] [phone] 11/28/2022 10:53:19 11/28/2022 11:25:37 Male hypogonadism 34911829 E29.1 check labs. discussed need for TRT. follow up in 2 week.s Health Concerns Section Related Observation LastModified by Organization Detai ls LastModified Time None Recorded Concern Status LastModified by Organization Details LastModified Time None Recorded Advance Directives Directive None Recorded Payers Encounter Date Sequence Insurance Name Policy Number Policy Kaba Covered Member ID Kaba Member ID Guarantor Name 11/28/2022 1 [facility] [employer]NAGEMENT (PPO) [id number] Homero Arechiga [id number] Homero Arechiga Notes Date Note Type Note [...] in the urine. Not Available [place] [facility] 03/08/2021 12:15:21 11/28/2022 text/html 47 yo male with hypogonadism. He went off Testosterone to have a baby and was put on Clomid. They were unsuccessful. He had no sex drive so they did not have sex. He as been off Clomid for 6 weeks. He is on Cialis. Primo Jerome MD [address] [place] [address], [place] [address], [place], [address], [place] [facility] 11/28/2022 11:32:20
--- OUTSIDE RECORDS SUMMARY | 2024-08-04 16:25 | XMS_ITS | Referral Summary ---
Author Organization [facility] Address [address] [place] [address] Care Team Providers Care Printing Table Worker Name Role Phone Unknown, Notinfile Unavailable Unavailable Nga Hernandez MD Primary Care Provider [phone] Allergies No known active allergies Medications metoclopramide [...] tablet TAKE 1 TABLET BY MOUTH DAILY [id number], THEN INCREASE TO 2 TABLETS DAILY 2 [...] on file Legal Sex Male 11:35 PM [employer] Gender Identity Not on file Sexual Orientation Not on file Last Filed Vital Signs Vital Sign Reading Time Taken Comments Blood Pressure 103/63 06/27/2018 12:30 AM [facility] Pulse 62 06/27/2018 12:30 AM [facility] Temperature 36.6 C (97.9 F) 06/26/2018 8:19 PM [facility] Respiratory Rate 16 06/27/2018 12:30 AM [facility] Oxygen Saturation 100% 06/27/2018 12:30 AM [facility] Inhaled Oxygen Concentration - - Weight 90.7 kg (200 lb) 06/26/2018 8:19 PM [facility] Height 175.3 cm (5' 9 ) 06/26/2018 8:19 PM [facility] Body Mass Index 29.53 06/26/2018 8:19 PM [facility] Plan of Treatment Not on file Insurance [facility] [place] [address] [employer] Care Teams Printing Table Worker Relationship Specialty [place] [address] [place] [address] PCP - General Internal Medicine 12/16/23 Unknown, Notinfile 11/26/21
--- OUTSIDE RECORDS SUMMARY | 2024-08-04 16:25 | XMS_ITS | Clinical Summary ---
Author Organization [facility] Address [address] [place] [address] Phone Care Team Providers Care Pharmacy Billing Adjudicator Name Role Phone Tello Denton MD Primary [...] Type Department Care Team Description 07/26/2024 Telephone [facility] [address] [place] [address] [phone] rEa Todd APN, JOSE ALFREDO 05/09/2024 Refill [facility] [address] [place] [address] [phone] Mallika Jung APRN, CNP Medication Refill 05/06/2024 11:00 AM BULL LADLE TENDER Office Visit [facility] [address] [place] [address] [phone] Mallika Jung APRN, CROZE CUTTER HELPER Mixed bipolar I disorder (HCC) (Primary Dx); [...] Comments Blood Pressure 146/83 05/06/2024 11:21 AM BULL LADLE TENDER Pulse 93 05/06/2024 11:11 AM BULL LADLE TENDER Temperature - - Respiratory Rate 20 05/06/2024 11:11 AM BULL LADLE TENDER Oxygen Saturation 100% 05/06/2024 11:11 AM BULL LADLE TENDER Inhaled Oxygen Concentration - - Weight 97.5 kg (215 lb) 05/06/2024 11:11 AM BULL LADLE TENDER Height 175.3 cm (5' 9 ) 05/06/2024 11:11 AM BULL LADLE TENDER Body Mass Index 31.75 05/06/2024 11:11 AM BULL LADLE TENDER Plan of Treatment Upcoming Encounters Date Type Department Care Team (Late st Contact Info) Description 08/09/2024 3:45 PM CDT Office Visit [facility] [address] [place] [phone] Era Todd, VENDING MACHINE FILLER, CROZE CUTTER HELPER [address] [place] [address] Health Maintenance Due Date Last Done Comments [...] patient's age to complete this topic Insurance [address] [address] [facility] Care Teams Pharmacy Billing Adjudicator Relationship Specialty Start Date End Date Tello Denton MD [address] [place] [address] PCP - General Internal Medicine 01/30/24
== END 2024-08-04 15:05 | disposition home or self-care (01) ==
PROVIDERS: Visit Provider Pain Medicine Interventional Pain Medicine
DX: M47.816 Spondylosis without myelopathy or radiculopathy, lumbar region (principal); Z79.891 Long term (current) use of opiate analgesic
CPT/HCPCS: 72040; 72100

== ENCOUNTER 2024-08-16 21:25 | Emergency (ER) | payer OTHER, SELFPAY ==
[2024-08-16 21:28] VITALS: BP 116/85; PULSE 98; RESP 15; TEMP 36.5; O2SAT 99
--- OUTSIDE RECORDS SUMMARY | 2024-08-16 21:29 | XMS_ITS | Continuity of Care Document ---
Author Organization [facility] Address [address] [place] [address] Phone Care Team Providers Care Cell Tender Name Role Phone Talon Ambrose Unavailable Unavailable Advance Directives Directive Yes / No Effective Date File Name No Information Encounters Encounter Description Practice Location Reason(s) For Visit Diagnoses Date Provider Providers Copied on Encounter [facility], [address] [place] [address], [facility], tel:[phone] *[facility] No Information Arnol Hanley. [address] [place] [address], [facility], [place]. tel:[phone] Family History Family Member Type Diagnosis Age [...]
--- OUTSIDE RECORDS SUMMARY | 2024-08-16 21:29 | XMS_ITS | CONTINUITY OF CARE DOCUMENT ---
Author Name ren mcclure Address Unknown Organization [facility] Address [address] [place] [address] Phone [phone] Care Team Providers Care Bandage Maker Name Role Phone Adan Peñaloza MD Unavailable [phone] DINAH FRITZ MD Unavailable WOJCIECH FLORES MD Unavailable INSURANCE PROVIDERS Payer name Policy type / Coverage type Beulah red libertarian ID [facility] [employer] 9 [id number]
--- OUTSIDE RECORDS SUMMARY | 2024-08-16 21:29 | XMS_ITS | Clinical Summary ---
Author Organization [facility] Address [address] [place] [address] Phone Care Team Providers Care Header Up Name Role Phone Tello Denton MD Primary Care Provider Allergies No known active allergies Medications Xarelto 20 MG Tablet Take 1 Tablet [...] every day as directed 12/12/19 22 Active ALPRAZolam (XANAX) 0.5 MG TabletIndication s:Generalized anxiety disorder Take 1 Tablet by mouth 3 times daily as needed for Anxiety. 90 Tablet 3 05/06/19 25 Active Lisdexamfetamine Dimesylate 60 MG CapsuleIndicatio ns:Attention Deficit Hyperactivity Disorder Take 1 Capsule by mouth daily for 30 days. Indications: Attention Deficit Hyperactivity Disorder 30 Capsule 07/20/19 25 025 Active Levomefolate Glucosamine (METHYLFOLATE PO) Take by mouth. Activ e prazosin (MINIPRESS) 1 MG Capsule Take 1 Capsule by mouth nightly. Uses PRN 30 Capsule 2 08/11/19 25 Active Lisdexamfetamine Dimesylate 60 MG CapsuleIndicatio ns:Attention deficit hyperactivity disorder (ADHD), predominantly inattentive type Take 1 Capsule by mouth daily for 30 days. 30 Capsule 08/19/19 25 025 Active Lisdexamfetamine Dimesylate 60 MG CapsuleIndicatio ns:Attention deficit hyperactivity disorder (ADHD), predominantly inattentive type Take 1 Capsule by mouth daily for 30 days. 30 Capsule 09/18/19 25 025 Active Lisdexamfetamine Dimesylate 60 MG CapsuleIndicatio ns:Attention deficit hyperactivity disorder (ADHD), predominantly inattentive type Take 1 Capsule by mouth daily for 30 days. 30 Capsule 10/18/19 25 025 Active lamoTRIgine (LaMICtal) 100 MG Tablet Take 1 Tablet by mouth daily. 30 Tablet 3 08/11/19 25 Active hydroCHLOROthiaz jos 12.5 MG Tablet Take 1 tablet every day by oral route in the morning. Discontinu ed(Med List Clean Up) Aimovig 140 MG/ML Solution Auto-injector Inject 140 mg as needed by subcutaneous route as directed. Discontinu ed(Med List Clean Up) Vyvanse 60 MG CapsuleIndicatio ns:Attention Deficit Hyperactivity Disorder Take 1 Capsule by mouth daily. Indications: Attention Deficit Hyperactivity Disorder 30 Capsule 04/16/20 24 025 Discontinu ed(Med List Clean Up) Vyvanse 60 MG CapsuleIndicatio ns:Attention Deficit Hyperactivity Disorder Take 1 Capsule by mouth daily. Indications: Attention Deficit Hyperactivity Disorder 30 Capsule 03/19/20 24 025 Discontinu ed(Med List Clean Up) Vyvanse 60 MG CapsuleIndicatio ns:Attention Deficit Hyperactivity Disorder Take 1 Capsule by mouth daily. Indications: Attention Deficit Hyperactivity Disorder 30 Capsule 02/20/20 24 025 Discontinu ed(Med List Clean Up) lamoTRIgine (LaMICtal) 100 MG Tablet Take 1 Tablet by mouth daily. 30 Tablet 3 05/06/19 25 025 Discontinu ed(Dose adjustment ) Lisdexamfetamine Dimesylate 60 MG CapsuleIndicatio ns:Attention Deficit Hyperactivity Disorder Take 1 Capsule by mouth daily for 30 days. Indications: Attention Deficit Hyperactivity Disorder 30 Capsule 06/22/19 25 025 prazosin (MINIPRESS) 1 MG Capsule Take 1 Capsule by mouth nightly. Uses PRN 30 Capsule 2 05/09/19 25 025 Discontinu ed(Reorder ) Active Problems Problem Noted Date Diagnosed Date Attention deficit hyperactivity disorder, combin ed type 01/28/2023 Generalized anxiety disorder 05/10/2021 Mixed bipolar I disorder 12/21/2020 Encounters Date Type Department Care Team Description 08/10/2024 3:45 PM CDT Office Visit [facility] [address] [place] [address] [phone] Era Todd, DOCUMENTATION CONSULTANT, ELECTRONICS TECHNOLOGY INSTRUCTOR Attention deficit hyperactivity disorder, combined type (Primary Dx); Generalized anxiety disorder; Mixed bipolar I disorder (HCC); Attention deficit hyperactivity disorder (ADHD), predominantly inattentive type 08/10/2024 Travel 07/26/[address] [facility] [address] [place] [address] [phone] Era Todd, DOCUMENTATION CONSULTANT, ELECTRONICS TECHNOLOGY INSTRUCTOR from Last 3 Months Family History Medical [...] Former Cigarettes Q uit: 2018 Smokeless Tobacco: Current Comments:Vapes Alcohol Use Standard Drinks/Week Comments Not Currently 0 (1 standard drink = 0.6 oz pur e alcohol) Social Connection and Isolat ion Panel [NHANES] Answer Date Recorded In a typical week, how many times do you talk on the phone with family, friends, or neighbors? More than three times a week 08/10/2024 How often do you get togethe r with friends or relatives? Once a week 08/10/2024 Attends Alevism Services Not on file 08/10 Active Member of Clubs or Organizations Not on f ile 08/10/2024 Attends Club or Organization Meetings Not on david e 08/10/2024 Marital Status Not on file 08/10/2024 Overall Financial Resource Strain (CARDIA) Answe r Date Recorded How hard is it for you to pa y for the very basics like food, housing, medical care, and heating? Somewhat hard 08/10/2024 PHQ-2 Answer Date Recorded Total Score - Questions 1-9 10 01/19 [facility] - Occupational Stress Questionnaire Answer Date Recorded Do you feel stress - tense, restless, nervous, or anxious, or unable to sleep at night because your mind is troubled all the time - these days? Very much 08/10/2024 Exercise Vital Sign Answer Date Recorde d On average, how many days pe r week do you engage in moderate to strenuous exercise (like a brisk walk)? 3 days 08/10/2024 On average, how many minutes do you engage in exercise at this level? 20 min 08/10/2024 Hunger Vital Sign Answer Date Recorded Within the past 12 months, y ou worried that your food would run out before you got the money to buy more. Sometimes true Within the past 12 months, t he food you bought just didn't last and you didn't have money to get more. Sometimes true PRAPARE - Transportation Answer Date Re corded In the past 12 months, has l ack of transportation kept you from medical appointments or from getting medications? No 07/21 In the past 12 months, has l ack of transportation kept you from meetings, work, or from getting things needed for daily living? No 08/10/2024 Housing Stability Vital Sign Answer Hernán e Recorded In the last 12 months, was t here a time when you were not able to pay the mortgage or rent on time? Yes 08/10/2024 In the past 12 months, how m any times have you moved where you were living? 0 08/10/2024 At any time in the [facility], were you homeless or living in a fpc (including now)? No 08/10/2024 Sexually Active Control Partners Comments Yes Sex and Gender Information Value Date Recorded Sex Assigned at Not on file Legal Sex Male 1:47 PM CDT Gender Identity Male 11/03/2023 1:47 PM CDT Sexual Orientation Straight 11/03/2023 1: 47 PM CDT Last Filed Vital Signs Vital Sign Reading Time Taken Comments Blood Pressure 138/90 08/10/2024 3:59 PM CDT Pulse 85 08/10/2024 3:47 PM CDT Temperature - - Respiratory Rate 18 08/10/2024 3:47 PM CDT Oxygen Saturation 100% 08/10/2024 3:47 PM CDT Inhaled Oxygen Concentration - - Weight 92.1 kg (203 lb) 08/10/2024 3:47 PM CDT Height 175.3 cm (5' 9 ) 08/10/2024 3:47 PM CDT Body Mass Index 29.98 08/10/2024 3:47 PM CDT Plan of Treatment Upcoming Encounters Date Type Department Care Team (Late st Contact Info) Description 11/09/2024 4:15 PM CDT Office Visit [facility] [address] [place] [phone] Era Todd, DOCUMENTATION CONSULTANT, ELECTRONICS TECHNOLOGY INSTRUCTOR [address] [place] [address] Health Maintenance Due Date Last Done Comments Hepatitis C Virus (HCV) Screening 1975 Hepatitis B Immunization (2 of 3 - 19+ 3-dose series) 08/16/2015 07/19/2015 Colonoscopy 2021 Colorectal Cancer Screening 2021 SARS-COV-2 Immunization ( season) 2023 01/26/2023, 02/15/2022, 01/21/2022, Additional history exists Respiratory Syncytial Virus (RSV) Immunization (Adult) (1 - 1-dose 75+ series) 08/30/2051 Influenza Immunization Completed , 12/28/2022, 02/15/2022, Additional history exists TdaP Immunization Completed 05/08/2024, , 12/07/2014, Additional history exists Meningococcal Immunization (ACWY) Aged Out No longer eligible based on patient's age to complete this topic Pneumococcal Immunization Combined Aged Out No longer eligible based on patient's age to complete this topic Rotavirus Immunization Aged Out No lo nger eligible based on patient's age to complete this topic Insurance [employer] Care Teams Header Up Relationship Specialty Start Date End Date Tello Denton MD [address] [place] [address] PCP - General Internal Medicine 01/30/24
--- OUTSIDE RECORDS SUMMARY | 2024-08-16 21:29 | XMS_ITS | Clinical Summary ---
Author Organization [facility] Address [address] [place] [address] Care Team Providers Care Radiosonde Specialist Name Role Phone Nga Hernandez MD Primary Care Provider [phone] Allergies Active Allergy Reactions Criticality Noted Date [...] 024 Active fluticasone propionate (FLONASE) 50 mcg/spray [place], Suspension nasal inhalerIndicat ions:Acute non-recurrent maxillary sinusitis [...] mouth daily. 180 Tablet 1 025 Active triamcinolone acetonide (KENALOG) 0.1 % CreamIndicatio [...] area 2 times daily. 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 Followed by 20 mg by mouth daily taken with food. 42 Tablet 025 2024 Active Problems Problem Noted Date Diagnosed Date [...] Encounters Date Type Department Care Team Description 08/13/2024 Telephone [facility] [employer] [place] [address] [place] [address] Nga Hernandez MD Concerns 08/03/2024 External Device Data STL ABSTRACTION Provider, Abstract 07/29/2024 9:30 AM CDT Office Visit [facility] [employer] [facility] [address] [place] [address] Nga Hernandez MD Itching (Primary Dx); Bug bite, initial encounter; Thumb pain, left 07/22/2024 2:30 PM CDT Office Visit [facility] [employer] [facility] [address] [place] [place] [address] [place], ANP Recurrent acute deep vein thrombosis (DVT) [...] STL ABSTRACTION Provider, Abstract 05/25/2024 10:30 AM FORM BUILDING SUPERVISOR Office Visit [facility] [place] [address] [address] Nga Hernandez MD Hypertension, unspecified type (Primary Dx); Skin lesion; Sebaceous cyst; Screening for condition; Left eye injury, initial encounter from Last 3 Months Immunizations Immunization Administration [...] Description 10/11/2024 1:20 PM CDT Office Visit [facility] [place] [address] [place] [address] 11/22/2024 2:30 PM CDT Office Visit [facility] [place] [address] [place] [phone] Isatu [place], ANP [address] [facility] [address] [place] [address] Health Maintenance Due Date Last Done Comments Pre-Diabetes and Diabetes Screening 1975 HEPATITIS B VACCINES (1 of 3 - 19+ 3-dose series) 08/30/1995 COLORECTAL SCREENING 2021 FIT-DNA Q 3 years 2021 FIT/FOBT Q 1 year 2021 Flex Sig/CT Colonography Q 5 years 2021 Colorectal Cancer Screening 10/14/2024 Postponed from 2021 (Patient Refused) DTAP/TDAP/TD VACCINES (2 - T d or Tdap) 12/07/2024 12/07/2014 INFLUENZA VACCINE Completed 01/21/2024, 01/19/2013, 04/21/2012 Insurance RX [employer] RX Member Subscriber Plan / Payer (Ef fective 2021-Present) Name:Homero Arechiga Relation to Subscriber:Self Name:Homero Arechiga Subscriber ID:Not on file Payer ID:Not on file Group ID:[id number] Type:RX Commercial Address: [place], [place] ALLEGIANCE OPEN ACCESS ALLEGIANCE OPEN ACCESS Care Teams Radiosonde Specialist Relationship Specialty Start Date End Date Nga Hernandez MD [address] [place] [address] PCP - General Internal Medicine 09/16/23
--- OUTSIDE RECORDS SUMMARY | 2024-08-16 21:29 | XMS_ITS | Data Portability ---
Author Organization [facility] [employer], Main Office Address [address] [place] [address] Assessment No assessment recorded. Plan of Treatment Reminders Order Date Submit Date Provider Last Modified By Organization Details Last Modified Time Details Appointments None recorded . Lab urinalys is, dipstick 2022 023 [email or web address] [facility], [address] [facility] [address], [place], [address], 3 11:22:15 CBC 2022 023 [facility] (Lab), [address] [place], [address], 3 14:17:43 CMP, serum or plasma 2022 023 [facility] (Lab), [address] [place], [address], 3 14:17:43 PSA, total, serum or plasma 2022 023 [email or web address] [facility] (Lab), [address] [place], [address], 4 12:41:31 testoste matthew, free + total, serum 2022 023 [facility] (Lab), [address] [place], [address], 3 13:23:36 estradio l, serum 2022 023 [facility] (Lab), [address], [place], [address], 13:23:37 Referral None recorded . Procedures None recorded . Surgeries None recorded . Imaging US, bladder 2022 023 [email or web address] [facility] [place], [address] [place], [place] [address]e [address], [place], [address], 11:25:38 Medication Orders None recorded . Patient TargetsNo targets recorded. Patient InstructionsNo instructions recorded. Reason for Referral None Reported. Results Created Date Observation Date Name Description Value Unit Range Abnormal Flag Note LastModifiedBy Organization Detail LastModifiedTime 03/08/2003/08/2021 urina lysis , dipst ick Leukocytes (reference range: negative sesar/ l) Negati ve Not Available [facility]_[address], [address], [address], 03/08/2021 11:19:45 03/08/20 21 03/08/2021 urina lysis , dipst ick Nitrite (reference rage: negative mg/dl) negati ve Not Available [facility], [address], 03/08/2021 11:19:45 03/08/20 21 03/08/2021 urina lysis , dipst ick Urobilinogen (reference range: 0.2-1 mg/dl) 0.2 Not Available [facility]_[address], [address], [address], 03/08/2021 11:19:45 03/08/20 21 03/08/2021 urina lysis , dipst ick Protein (reference range: negative mg/dl) Negati ve Not Available [facility] [place] [address], [address], [place], [address], 03/08/2021 11:19:45 03/08/20 21 03/08/2021 urina lysis , dipst ick pH (reference range: 5-7) 6.0 Not Available [address], [address], 03/08/2021 11:19:45 03/08/2003/08/2021 urina lysis , dipst ick Blood (reference range: negative Robin/ l) Small Not Available [address], [address], 03/08/2021 11:19:45 03/08/20 21 03/08/2021 urina lysis , dipst ick Specific [place] (reference range: 1.005-1.030) 1.025 Not Available [address], [address], 03/08/2021 11:19:45 03/08/20 21 03/08/2021 urina lysis , dipst ick Ketone (reference range: negative mg/dl) Negati ve Not Available [address], [address], 03/08/2021 11:19:45 03/08/20 21 03/08/2021 urina lysis , dipst ick Bilirubin (reference range: negative mg/dl) Small Not Available [address], [address], 03/08/2021 11:19:45 03/08/2003/08/2021 urina lysis , dipst ick Glucose (reference range: negative mg/dl) Negati ve Not Available [address], [address], [address], 03/08/2021 11:19:45 03/08/20 21 03/08/2021 urina lysis , dipst ick Appearance Clear Not Available [address], [address], 03/08/2021 11:19:45 03/08/2003/08/2021 urina lysis , dipst ick Color Yellow Not Available [address], [address], 03/08/2021 11:19:45 03/29/20 21 03/29/2021 urina lysis , dipst ick Leukocytes (reference range: negative sesar/ l) Negati ve Not Available [address], [address], 03/29/2021 10:47:02 03/29/20 21 03/29/2021 urina lysis , dipst ick Nitrite (reference rage: negative mg/dl) negati ve Not Available [address], [address], 03/29/2021 10:47:02 03/29/20 21 03/29/2021 urina lysis , dipst ick Urobilinogen (reference range: 0.2-1 mg/dl) 0.2 Not Available [address], [address], 03/29/2021 10:47:02 03/29/20 21 03/29/2021 urina lysis , dipst ick Protein (reference range: negative mg/dl) Negati ve Not Available [address], [address], 03/29/2021 10:47:02 03/29/20 21 03/29/2021 urina lysis , dipst ick pH (reference range: 5-7) 5.5 Not Available [address] [address], [place], [address], 03/29/2021 10:47:02 03/29/2003/29/2021 urina lysis , dipst ick Blood (reference range: negative Robin/ l) Small Not Available [address], [address], 03/29/2021 10:47:02 03/29/20 21 03/29/2021 urina lysis , dipst ick Specific [place] (reference range: 1.005-1.030) 1.020 Not Available [address], [address], 03/29/2021 10:47:02 03/29/20 21 03/29/2021 urina lysis , dipst ick Ketone (reference range: negative mg/dl) Negati ve Not Available [address], [address], 03/29/2021 10:47:02 03/29/20 21 03/29/2021 urina lysis , dipst ick Bilirubin (reference range: negative mg/dl) Small Not Available [facility]_[address], [place] [address], [place], [address], 03/29/2021 10:47:02 03/29/20 21 03/29/2021 urina lysis , dipst ick Glucose (reference range: negative mg/dl) Negati ve Not Available [facility]_[address] [address], [place], [address], 03/29/2021 10:47:02 03/29/20 21 03/29/2021 urina lysis , dipst ick Appearance Clear Not Available [facility] _[address] [address], [place], [address], 03/29/2021 10:47:02 11/29/19 23 11/28/2022 urina lysis , dipst ick Leukocytes (reference range: negative sesar/ l) Negati ve Not Available [facility] [address] [facility] [address], [place], [address], 11/28/2022 11:07:19 11/29/19 23 11/28/2022 urina lysis , dipst ick Nitrite (reference rage: negative mg/dl) negati ve Not Available [facility] [address], [place], [address], 11/28/2022 11:07:19 11/29/19 23 11/28/2022 urina lysis , dipst ick Urobilinogen (reference range: 0.2-1 mg/dl) 0.2 Not Available [facility] [address], [place], [address], 11/28/2022 11:07:19 11/29/1911/28/2022 urina lysis , dipst ick Protein (reference range: negative mg/dl) Negati ve Not Available [facility] [address], [place], [address], 11/28/2022 11:07:19 11/29/19 23 11/28/2022 urina lysis , dipst ick pH (reference range: 5-7) 5.5 Not Available s_ gmg [facility] [address], [place], [address], 11/28/2022 11:07:19 11/29/1911/28/2022 urina lysis , dipst ick Blood (reference range: negative Robin/ l) Negati ve Not Available s_g [facility] [address] [place] [address] [address], [place], [address], 11/28/2022 11:07:19 11/29/1911/28/2022 urina lysis , dipst ick Specific [place] (reference range: 1.005-1.030) 1.025 Not Available s _[facility] [address], [place], [address], 11/28/2022 11:07:19 11/29/19 23 11/28/2022 urina lysis , dipst ick Ketone (reference range: negative mg/dl) Negati ve Not Available s_gmg [facility] [address] [place] [address] [address], [place], [address], 11/28/2022 11:07:19 11/29/19 23 11/28/2022 urina lysis , dipst ick Bilirubin (reference range: negative mg/dl) Negati ve Not Available s_[facility] [address] [place] [address] [address], [place], [address], 11/28/2022 11:07:19 11/29/19 23 11/28/2022 urina lysis , dipst ick Glucose (reference range: negative mg/dl) Negati ve Not Available [facility] [place] [address], [place], [address], 11/28/2022 11:07:19 11/29/19 23 11/28/2022 urina lysis , dipst ick Appearance Clear Not Available [facility] [place] [address] [place] [address], [place], [address], 11/28/2022 11:07:19 11/29/19 23 11/28/2022 urina lysis , dipst ick Color Yellow Not Available [facility] t [place] [address] [place] [address], [place], [address], 11/28/2022 11:07:19 01/09/20 21 01/03/2021 sleep study , basel ine diagn ostic polys omnog leigh* No observ ation record ed. [id number] Not Available 06/19/2022 19:12:38 03/08/20 21 03/08/2021 US, bladd er No observ ation record ed. [id number] [facility] [place] [address] [facility], [address], [place], [address], 06/19/2022 19:12:38 11/29/19 23 11/28/2022 US, bladd er No observ ation record ed. [email or web address] [facility] [address] [place] [address], [place], [address], 11/29/2022 14:57:39 Result Notes None recorded. Problems Name Problem SNOMED Code Status Onset Date Resolution Date Notes Provider Name and Address Organization Details Recorded Time Venous thrombosis 309033434 Active Not Available [employer] 3 19:12:04 Testicular hypofuncti on 137052034 Active Not Available [facility] 3 19:12:04 Chest pain 90022302 Active Not Available [facility] 3 19:12:04 Current tear of medial cartilage AND/OR meniscus of knee Active Not Available [facility] 3 19:12:04 Hypertensi ve disorder 56042274 Completed Not Available [facility] 3 19:12:04 Osteoarthr itis 260846601 Active Not Available [facility] 3 19:12:04 Viral hepatitis C 56106839 Active Not Available [facility] 3 19:12:04 Hyperlipid emia 13192680 Active Not Available [facility] 3 19:12:04 Essential hypertensi on 48312813 Active Not Available [facility] 3 19:12:04 Sexually transmitte d infectious disease 8892286 Active Not Available [facility] 3 19:12:04 Pain in limb 23544788 Active Not Available [facility] 3 19:12:04 Male hypogonadi sm 93213593 Active 2022 DILSHAD Chandler - Mel [place] [facility] 3 11:19:07 Notes:Medical History: Subst ance use Bipolar depression/Anxiety/ADHD Migraine headaches Rhinitis Bruxism Obesity with mild OSAHS, AHI = 1, 01/03/21 Hypertension Hyperlipidemia Hepatitis C Hypogonadism PLMD 2 PE/ 5 DVT on Xarelto Osteoarthritis Procedure History: Bilateral Lasik eye surgery 2019 Problem Notes None recorded. Procedures Surgical History None recorded. Imaging Results Imaging Date Name Status LastModified by Organiz [facility] Details LastModified Time 01/03/2021 sleep study, baseline diagnostic polysomnogram* completed [id number] Information not available 06/19/2022 19:12:38 03/08/2021 US, bladder completed [id number] [facility] [address], [address], [place], [address], 06/19/2022 19:12:38 11/28/2022 US, bladder completed [email or web address] [facility] [place] [address], [place], [address], 11/29/2022 14:57:39 Procedure Notes None recorded. Medical [...] Not Available Not Available Not Available Fluvirin 2376-1122 45 mcg (15 mcg x 3)/0.5 mL [...] Not Available Not Available Not Available Fluvirin 0084-8516 45 mcg (15 mcg x 3)/0.5 mL [...] 4 75 /min 18 /min 98.6 [degF] 265475. 66 g 122 mm[Hg] 92 mm[Hg] Not Available [facility] 3 19:11:59 Date Recorded Body mass index (BMI) Body height Oxygen saturation Oxygen saturation in Arterial blood by Pulse oximetry Body temperature Body weight Systolic blood pressure Diastolic blood pressure Provider Name and Address Organization Details Last Updated DateTime 1 33.5 kg/m2 175.26 cm 97 % 97 % 98.8 [degF] 669664. 47 g 153 mm[Hg] 89 mm[Hg] Not Available [facility] 3 19:11:59 Date Recorded Body mass index (BMI) Body height Body weight Provider Name and Address Organization Details Last Updated DateTime 03/29/2021 33.5 kg/m2 175.26 cm 320768.47 g Not Available [facility] 06/19/2022 19:12:00 Date Recorded Body weight Body temperature Oxygen saturation Oxygen saturation in Arterial blood by Pulse oximetry Heart rate Systolic blood pressure Diastolic blood pressure Provider Name and Address Organization Details Last Updated DateTime 3 933205. 09 g 97.9 [degF] 98 % 98 % 83 /min 139 mm[Hg] 93 mm[Hg] NAYT Rivero [place] [facility] [place] [employer] 3 11:06:54 Date Recorded Body mass index (BMI) Body height Provider Name and Address Organization Details Last Updated DateTime 11/28/2022 36.9 kg/m2 175.26 cm Nga Jones MA [facility] [place] [employer] 11/28/2022 11:05:40 Social History None recorded. Functional Status None recorded. Mental Status None recorded. Family History Nothing Reported. Medical History No medical history recorded. Immunizations Vaccine Type Date Status Note Provider Nam e and Address Organization Details Recorded Time influenza, unspecified formulation 3 completed Not Available [facility] 06/19/2022 19:12:36 tetanus toxoid, unspecified formulation 1 completed Not Available [facility] 06/19/2022 19:12:36 Influenza, high-dose, trivalent, PF 3 completed Not Available [facility] 06/19/2022 19:12:36 Influenza, high-dose, trivalent, PF 3 completed Not Available [facility] 06/19/2022 19:12:36 Past Encounters Encounter ID Performer Location Encounter Start Date Encounter Closed Date Diagnosis/Indication Diagnosis SNOMED-CT Code Diagnosis ICD10 Code Diagnosis Note [id number] [facility] [address] [address] 11/30/2020 00:00:00 11/30/2020 12:27:55 [id number] [facility] [address] [place] [address] 03/08/2021 00:00:00 03/08/2021 12:15:21 [id number] [facility] [address] [place] [address] 03/29/2021 00:00:00 03/29/2021 11:26:17 [id number] Primo Jerome MD [facility] [address] [place] [address] 11/28/2022 10:53:19 11/28/2022 11:25:37 Male hypogonadism 29156930 E29.1 check labs. discussed need for TRT. follow up in 2 week.s Health Concerns Section Related Observation LastModified by Organization Detai ls LastModified Time None Recorded Concern Status LastModified by Organization Details LastModified Time None Recorded Advance Directives Directive None Recorded Payers Encounter Date Sequence Insurance Name Policy Number Policy Kaba Covered Member ID Kaba Member ID Guarantor Name 11/28/2022 1 [facility] [employer] (PPO) [id number] Homero Arechiga [id number] Homero Arechiga Notes Date Note Type Note [...] in the urine. Not Available [place] [facility] [employer] 03/08/2021 12:15:21 11/28/2022 text/html 47 yo male with hypogonadism. He went off Testosterone to have a baby and was put on Clomid. They were unsuccessful. He had no sex drive so they did not have sex. He as been off Clomid for 6 weeks. He is on Cialis. Primo Jerome MD [address] [place] [address], [place] [address], [place], [address], [place] [facility] 11/28/2022 11:32:20
--- OUTSIDE RECORDS SUMMARY | 2024-08-16 21:29 | XMS_ITS | Clinical Summary ---
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 Gender Identity Not on file Sexual Orientation Not on file Obstetrics History Last Filed Vital Signs Vital Sign Reading Time Taken Comments Blood Pressure 103/63 06/27/2018 12:30 AM UNDERGROUND DRILL OPERATOR Pulse 62 06/27/2018 12:30 AM UNDERGROUND DRILL OPERATOR Temperature 36.6 C (97.9 F) 06/26/2018 8:19 PM UNDERGROUND DRILL OPERATOR Respiratory Rate 16 06/27/2018 12:30 AM UNDERGROUND DRILL OPERATOR Oxygen Saturation 100% 06/27/2018 12:30 AM UNDERGROUND DRILL OPERATOR Inhaled Oxygen Concentration - - Weight 90.7 kg (200 lb) 06/26/2018 8:19 PM UNDERGROUND DRILL OPERATOR Height 175.3 cm (5' 9 ) 06/26/2018 8:19 PM UNDERGROUND DRILL OPERATOR Body Mass Index 29.53 06/26/2018 8:19 PM UNDERGROUND DRILL OPERATOR Plan of Treatment Health Maintenance Due Date [...] 04/21/2008 Hepatitis C Screening Completed 02/01/2022 Insurance [facility] CHOICE PLUS [employer]IG[employer]LE[employer]ANCE C[employer] Care Teams Environmental Programs Manager Relationship Specialty [place] [address] [place] [address] PCP - General Internal Medicine 12/16/23 Unknown, Notinfile 11/26/21
--- OUTSIDE RECORDS SUMMARY | 2024-08-16 21:30 | XMS_ITS | Referral Summary ---
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 Gender Identity Not on file Sexual Orientation Not on file Last Filed Vital Signs Vital Sign Reading Time Taken Comments Blood Pressure 103/63 06/27/2018 12:30 AM SUPERVISOR DRYING AND SOFTENING Pulse 62 06/27/2018 12:30 AM SUPERVISOR DRYING AND SOFTENING Temperature 36.6 C (97.9 F) 06/26/2018 8:19 PM SUPERVISOR DRYING AND SOFTENING Respiratory Rate 16 06/27/2018 12:30 AM SUPERVISOR DRYING AND SOFTENING Oxygen Saturation 100% 06/27/2018 12:30 AM SUPERVISOR DRYING AND SOFTENING Inhaled Oxygen Concentration - - Weight 90.7 kg (200 lb) 06/26/2018 8:19 PM SUPERVISOR DRYING AND SOFTENING Height 175.3 cm (5' 9 ) 06/26/2018 8:19 PM SUPERVISOR DRYING AND SOFTENING Body Mass Index 29.53 06/26/2018 8:19 PM SUPERVISOR DRYING AND SOFTENING Plan of Treatment Not on file Insurance [facility] UHC CHOICE PLUS [facility] HMO/PPO Address: [facility] [address] [place] [address] CIGNA ALLEGIANCE [facility]PPO Address: [facility] [id number] [place] [address] Care Teams Nursing Manager Relationship Specialty [place] [address] [place] [address] PCP - General Internal Medicine 12/16/23 Unknown, Notinfile 11/26/21
--- OUTSIDE RECORDS SUMMARY | 2024-08-16 21:30 | XMS_ITS | Data Portability ---
Author Organization [place] [facility] [employer] [facility] [place] Address [address] [facility] [address] [place] [address] Assessment Encounter Date Assessment Date Assessment LastModified [...] By Organization Details Last Modified Time 09/11/2021 [id number] epilepsy: care instructions [email or web address] Not available 09/11/2021 [...] Pt also agrees that me, and the [facility] Team are my treating physicians [...] and management plan. I was available via text/email/phone/[employer] during the patient's evaluation. I reviewed the patient's pertinent studies (labs/x-rays/EKG/e tc.). Not available 09/13/2021 01:32:58 09/14/2021 [id number] epilepsy: care instructions [email or web address] Not available 09/14/2021 [...] Pt also agrees that me, and the [facility] Team are my treating physicians [...] and management plan. I was available via text/email/phone/[employer] during the patient's evaluation. I reviewed the patient's pertinent studies (labs/x-rays/EKG/e tc.). Not available 09/18/2021 05:31:44 06/11/2022 [id number] I have discussed the risks and benefits [...] Pt also agrees that me, and the [facility] Team are my treating physicians and [...] SNOMED-CT Code Diagnosis ICD10 Code Diagnosis Note [id number] [facility] [address] [place] [address],[address] [place] [address] 09/11/2021 15:21:21 09/11/2021 15:45:14 Chronic hepatitis C 985818703 B18.2 Seizure disorder 0389448 02 G40.909 [id number] MD [facility] [address] [facility],[address] [place] [address] 09/14/2021 10:55:45 09/14/2021 13:37:27 Chronic hepatitis C 392599009 B18.2 Seizure disorder 0217147 02 G40.909 [id number] Tray Isaacs MD [facility] [address] [place] [address] 06/11/2022 14:07:25 10/08/2022 19:08:18 Seizure disorder 441313004 G40.909 Chronic hepatitis C 1283 54778 B18.2 Health Concerns Section Related Observation LastModified by Organization Detai ls LastModified Time None Recorded Concern Status LastModified by Organization Details LastModified Time None Recorded Advance Directives Directive None Recorded Payers Encounter Date Sequence Insurance Name Policy Number Policy Kaba Covered Member ID Kaba Member ID Guarantor Name 09/11/2021 1 [facility] [id number] Homero Arechiga [id number] Homero Arechiga 09/14/2021 1 [facility] [id number] Homero Arechiga [id number] Homero Arechiga 06/11/2022 1 [facility] ([facility] Rosario Arechiga [id number] Homero Arechiga Notes Date Note Type Note [...] C AND SEIZURES Tray Isaacs MD [address], [place], [address], [facility] - [facility] 09/13/2021 01:33:03 09/14/2021 text/html The [...] Isaacs MD [address], [address], [place], [address], [facility] - [facility] 09/18/2021 05:31:51 [...] Isaacs MD [address], [address], [place], [address], [facility] - [facility] 10/08/2022 19:08:17
--- NOTE | 2024-08-17 01:41 | PC.NURSE ---
Call x1 for room, no answer
--- NOTE | 2024-08-17 02:11 | PC.NURSE ---
Call x2, no answer
--- OUTSIDE RECORDS SUMMARY | 2024-08-17 02:31 | XMS_ITS | Clinical Summary ---
Author Organization [facility] Address [address] [place] [place] [address] Care Team Providers Care Fiberglass Fabricator Name Role Phone Nga Hernandez MD Primary Care Provider [phone] Allergies Active Allergy Reactions Criticality Noted Date [...] 024 Active fluticasone propionate (FLONASE) 50 mcg/spray [place], Suspension nasal inhalerIndicat ions:Acute non-recurrent maxillary sinusitis [...] Type Department Care Team Description 08/13/2024 Telephone [facility] [employer] [place] [address] [place] [address] Nga Hernandez MD Concerns 08/03/2024 External Device Data STL ABSTRACTION Provider, Abstract 07/29/2024 9:30 AM CDT Office Visit [facility] [facility] [address] [place] [address] Nga Hernandez MD Itching (Primary Dx); Bug bite, initial encounter; Thumb pain, left 07/22/2024 2:30 PM CDT Office Visit [facility] [facility] [address] [place] [address] [place], ANP Recurrent acute [...] STL ABSTRACTION Provider, Abstract 05/25/2024 10:30 AM KITCHENHAND Office Visit [facility] [employer] [place] [address] [place] [address] Nga Hernandez MD Hypertension, unspecified [...] Description 10/11/2024 1:20 PM CDT Office Visit [facility] [employer] [place] [address] [place] [address] 11/22/2024 2:30 PM CDT Office Visit [facility] [employer] [place] [address] [place] [phone] [place], ANP [address] [facility] Sarah Nixon [facility] [address] [place] [address] Health Maintenance Due Date Last [...] on file Group ID:[id number] Type:RX Commercial Address: [place], [place] ALLEGIANCE OPEN ACCESS ALLEGIANCE OPEN ACCESS Care Teams Fiberglass Fabricator Relationship Specialty Start Date End Date Nga Hernandez MD [address] [place] [address] PCP - General Internal Medicine 09/16/23
--- OUTSIDE RECORDS SUMMARY | 2024-08-17 02:31 | XMS_ITS | Clinical Summary ---
Author Organization [facility] Address [address] [place] [address] Care Team Providers Care Communication Equipment Repairer Name Role Phone Unknown, Notinfile Unavailable Unavailable Nga Hernandez MD Primary Care Provider [phone] Allergies No known active allergies Medications metoclopramide [...] tablet TAKE 1 TABLET BY MOUTH DAILY [id number], THEN INCREASE TO 2 TABLETS DAILY 2 [...] on file Legal Sex Male 11:35 PM PROSTHETICS TECHNICIAN Gender Identity Not on file Sexual Orientation Not on file Obstetrics History Last Filed Vital Signs Vital Sign Reading Time Taken Comments Blood Pressure 103/63 06/27/2018 12:30 AM PROSTHETICS TECHNICIAN Pulse 62 06/27/2018 12:30 AM PROSTHETICS TECHNICIAN Temperature 36.6 C (97.9 F) 06/26/2018 8:19 PM PROSTHETICS TECHNICIAN Respiratory Rate 16 06/27/2018 12:30 AM PROSTHETICS TECHNICIAN Oxygen Saturation 100% 06/27/2018 12:30 AM PROSTHETICS TECHNICIAN Inhaled Oxygen Concentration - - Weight 90.7 kg (200 lb) 06/26/2018 8:19 PM PROSTHETICS TECHNICIAN Height 175.3 cm (5' 9 ) 06/26/2018 8:19 PM PROSTHETICS TECHNICIAN Body Mass Index 29.53 06/26/2018 8:19 PM PROSTHETICS TECHNICIAN Plan of Treatment Health Maintenance Due Date [...] Screening Completed 02/01/2022 Insurance [facility] CHOICE PLUS CIGNA ALLEGIANCE CIGNA ALLEGIANCE Care Teams Communication Equipment Repairer Relationship Specialty [place] [address] [place] [address] PCP - General Internal Medicine 12/16/23 Unknown, Notinfile 11/26/21
--- OUTSIDE RECORDS SUMMARY | 2024-08-17 02:31 | XMS_ITS | CONTINUITY OF CARE DOCUMENT ---
Author Name ren mcclure Address Unknown Organization [facility] Address [address] [place] [address] Phone [phone] Care Team Providers Care Broadcast Producer Name Role Phone Adan Peñaloza MD Unavailable [phone] DINAH FRITZ MD Unavailable WOJCIECH FLORES MD Unavailable INSURANCE PROVIDERS Payer name Policy type / Coverage type [place] red democrat ID [facility] [employer] [id number]
--- OUTSIDE RECORDS SUMMARY | 2024-08-17 02:32 | XMS_ITS | Continuity of Care Document ---
Author Organization 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 [address] [place] [address], [facility], [place]. tel:[phone] Family History Family Member Type Diagnosis Age [...]
--- OUTSIDE RECORDS SUMMARY | 2024-08-17 02:32 | XMS_ITS | Referral Summary ---
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 Gender Identity Not on file Sexual Orientation Not on file Last Filed Vital Signs Vital Sign Reading Time Taken Comments Blood Pressure 103/63 06/27/2018 12:30 AM CHAR FILTER TANK TENDER Pulse 62 06/27/2018 12:30 AM CHAR FILTER TANK TENDER Temperature 36.6 C (97.9 F) 06/26/2018 8:19 PM CHAR FILTER TANK TENDER Respiratory Rate 16 06/27/2018 12:30 AM CHAR FILTER TANK TENDER Oxygen Saturation 100% 06/27/2018 12:30 AM CHAR FILTER TANK TENDER Inhaled Oxygen Concentration - - Weight 90.7 kg (200 lb) 06/26/2018 8:19 PM CHAR FILTER TANK TENDER Height 175.3 cm (5' 9 ) 06/26/2018 8:19 PM CHAR FILTER TANK TENDER Body Mass Index 29.53 06/26/2018 8:19 PM CHAR FILTER TANK TENDER Plan of Treatment Not on file Insurance [facility] UHC CHOICE PLUS CIGNA ALLEGIANCE [facility] HMO/PPO Address: [address] [place] [address] [facility] [facility] Address: [facility] [id number] [place] [address] Care Teams Slide Fasteners Inspector Relationship Specialty [place] [address] [place] [address] PCP - General Internal Medicine 12/16/23 Unknown, Notinfile 11/26/21
== END 2024-08-17 01:41 | disposition left against medical advice (07) ==
PROVIDERS: PCP Nurse Practitioner Adult Health
DX: M79.602 Pain in left arm (principal)
CPT/HCPCS: 99199

== ENCOUNTER 2024-08-18 14:57 | Emergency (ER) | payer OTHER, SELFPAY ==
--- NOTE | ~2024-08-18 | XR_ITS ---
XR hand LT min 3V Ordering provider: Lupis Humphrey APRN History: . injury, twisted thumb . Comparison: August 01, 2024 FINDINGS: BONES: No acute fracture or dislocation. Mallet deformity is seen in the distal interphalangeal joint of the little finger. JOINT SPACES: Well maintained. SOFT TISSUES: Unremarkable. IMPRESSION: No acute osseous abnormality left hand. Reviewed, dictated and finalized at location A.
[2024-08-18 15:01] VITALS: BP 137/97; PULSE 83; RESP 16; TEMP 36.6; O2SAT 98
--- NOTE | 2024-08-18 15:50 | ED_ITS ---
HPI - Extremity Injury (Upper) General Chief Complaint: Extremity Injury, Upper <Lupis Humphrey DIRECTOR HR COMMUNICATIONS - Last Filed: 08/18/24 15:53> Stated Complaint: I crushed my hand <Lupis Humphrey APRN - Last Filed: 08/18/24 15:53> Time Seen by Provider: 08/18/24 15:30 <Lupis Humphrey APRN - Last Filed: 08/18/24 15:53> Focused HPI: Patient is a 48-year-old male who presents to the ER with left hand and wrist pain. He reports he injured his hand approximately 2-3 weeks ago. On Friday, 3 days prior, the patient reports he was moving lumber, tripped, her stroke fell and smashed his left hand again. Patient reports he has a follow-up appointment with his doctor tomorrow. He reports the pain has been very intense and he was unable to wait until tomorrow for evaluation. Patient denies any other relevant medical history. GENERAL: Well-appearing, well-nourished, and in no acute distress. HEAD: Normocephalic, atraumatic. CHEST: Clear to auscultation. ?No respiratory distress. HEART: Regular rate and rhythm.? NEURO: ?Alert and oriented x3. Patient screened in triage and initial orders placed.? ?Additional care and disposition to be based upon?diagnostic testing and treatment. <Lupis Humphrey APRN - Last Filed: 08/18/24 15:53> Focused HPI: Patient is a 48-year-old male who presents to the ER with left hand and wrist pain. He reports he injured his hand approximately 2-3 weeks ago. On Friday, 3 days prior, the patient reports he was moving lumber, tripped, fell and smashed his left hand again. Patient reports he has a follow-up appointment with his pain management doctor tomorrow. He reports the pain has been very intense and he was unable to wait until tomorrow for evaluation. Patient denies any other relevant medical history. GENERAL: Well-appearing, well-nourished, and in no acute distress. HEAD: Normocephalic, atraumatic. CHEST: Clear to auscultation. ?No respiratory distress. HEART: Regular rate and rhythm.? NEURO: ?Alert and oriented x3. Patient screened in triage and initial orders placed.? ?Additional care and disposition to be based upon?diagnostic testing and treatment. <Larissa Aleman PA-C - Last Filed: 08/18/24 17:34> Related Data Home Medications: Home Medications ?Medication ?Instructions ?Recorded ?Confirmed ?Last Taken ?Type hydrocodone 10 mg-acetaminophen 1 tablet PO Q6H PRN 08/25/20 09/10/21 Unknown History 325 mg tablet rivaroxaban 20 mg tablet (Xarelto) 20 mg PO DAILY 08/25/20 09/10/21 Unknown History B-complex with vitamin C 1 tablet PO DAILY 06/22/21 09/10/21 Unknown History XMQG-3-TDJ-bvyzvzro-fdweafme-xxzyxti-bromelain-herbal cap PO 06/22/21 09/10/21 Unknown History 1,400 mg capsule desvenlafaxine succinate 100 mg 100 mg PO DAILY 06/22/21 09/10/21 Unknown History tablet,extended release 24 hr (Pristiq) lisdexamfetamine 60 mg capsule 60 mg PO DAILY 06/22/21 09/10/21 Unknown History (Vyvanse) testosterone enanthate 50 mg/0.5 50 mg subcut WEEKLY 06/22/21 09/10/21 Unknown History mL subcutaneous auto-injector clonazepam 1 mg tablet 1 mg PO BID 09/10/21 09/10/21 Unknown History semaglutide (weight loss) 0.25 0.25 mg subcut WEEKLY 10/14/23 Unknown History mg/0.5 mL subcutaneous pen injector (Wegovy) alprazolam 0.5 mg tablet (Xanax) 0.5 mg PO QHS PRN 05/05/24 05/05/24 Unknown History hydrochlorothiazide 25 mg tablet 25 mg PO DAILY 05/05/24 05/05/24 Unknown History hydrocodone 10 mg-acetaminophen 1 tablet PO QHS PRN 05/05/24 05/05/24 Unknown History 300 mg tablet lamotrigine 100 mg tablet 100 mg PO DAILY 05/05/24 05/05/24 Unknown History lisdexamfetamine 60 mg capsule 60 mg PO DAILY 05/05/24 05/05/24 Unknown History (Vyvanse) pantoprazole 20 mg tablet,delayed 20 mg PO QAM 05/05/24 05/05/24 Unknown History release rivaroxaban 20 mg tablet (Xarelto) 20 mg PO DAILY 05/05/24 05/05/24 Unknown History <Lupis Humphrey APRN - Last Filed: 08/18/24 15:53> Allergies/Adverse Reactions: Allergies Allergy/AdvReac Type Severity Reaction Status Date / Time semaglutide (From [facility]) AdvReac Intermediate Abdominal Verified 08/16/24 21:28 Pain <Lupis Humphrey APRN - Last Filed: 08/18/24 15:53> Review of Systems Review of Systems: CONSTITUTIONAL: Denies fever MUSCULOSKELETAL: Reports joint pain, and myalgia. NEUROLOGIC: Denies numbness, or weakness. <Larissa Aleman PA-C - Last Filed: 08/18/24 17:34> All systems reviewed & are unremarkable except as noted in HPI and below <Larissa Aleman PA-C - Last Filed: 08/18/24 17:34> PMFSH Past Medical History Medical History: Medical History History of hepatitis C s/p treatment Pulmonary embolism Dvt femoral (deep venous thrombosis) <Lupis Humphrey APRN - Last Filed: 08/18/24 15:53> Social History Social History: Social History Social History: vape Smoking status: Former smoker Alcohol intake: never Substance use: current Last use: states former Do You Feel Safe in your Home?: Yes Lack of Transportation: No Lack of Food: Sometimes True Current Housing: I Have Housing Concerned About Future Housing: No Difficulty Paying Gas/Electric Bills: YES Difficulty Paying for Meds: No Currently Unemployed: No Education: High School Diploma/GED Difficulty w/ Childcare or Family Care: No Occupation/Education: occupation Additional occupation/education comments: [employer] <Lupis Humphrey APRN - Last Filed: 08/18/24 15:53> Exam Narrative: GENERAL: Well-appearing, well-nourished, and in no acute distress. HEAD: Normocephalic, atraumatic. EYES: EOMI. EXTREMITIES: Decreased active range of motion in the left thumb due to pain. No edema or erythema. Normal radial pulse. Normal sensation SKIN: Warm, dry, no rash. NEURO: No focal deficits. Alert and oriented x3. PSYCH: Normal mood and affect <Larissa Aleman PA-C - Last Filed: 08/18/24 17:34> Course Course Emergency Course: Patient updated on his workup and agrees with plan of care <Larissa Aleman PA-C - Last Filed: 08/18/24 17:34> Vital Signs Vital signs: Vital Signs Temperature 97.8 F 08/18/24 15:01 Pulse Rate 83 08/18/24 15:01 Respiratory Rate 16 08/18/24 15:01 Blood Pressure 137/97 H 08/18/24 15:01 Pulse Oximetry 98 08/18/24 15:01 Oxygen Delivery Room Air 08/18/24 15:01 Temperature 97.8 F 08/18/24 15:01 Pulse Rate 83 08/18/24 15:01 Respiratory Rate 16 08/18/24 15:01 Blood Pressure 137/97 H 08/18/24 15:01 Pulse Oximetry 98 08/18/24 15:01 Oxygen Delivery Room Air 08/18/24 15:01 <Lupis Humphrey APRN - Last Filed: 08/18/24 15:53> Vital Signs Temperature 97.8 F 08/18/24 15:01 Pulse Rate 83 08/18/24 15:01 Respiratory Rate 16 08/18/24 15:01 Blood Pressure 137/97 H 08/18/24 15:01 Pulse Oximetry 98 08/18/24 15:01 Oxygen Delivery Room Air 08/18/24 15:01 Temperature 97.8 F 08/18/24 15:01 Pulse Rate 83 08/18/24 15:01 Respiratory Rate 16 08/18/24 15:01 Blood Pressure 137/97 H 08/18/24 15:01 Pulse Oximetry 98 08/18/24 15:01 Oxygen Delivery Room Air 08/18/24 15:01 <Larissa Aleman PA-C - Last Filed: 08/18/24 17:34> MDM - Extremity Injury (Upper) MDM Narrative Medical decision making narrative: Patient presents emergency department for acute on chronic left thumb pain. Patient is neurovascularly intact. Left hand x-ray without acute osseous abnormalities. He was instructed to have continued follow-up with his paint spray tender. He was given warnings to return to the ER <Larissa Aleman PA-C - Last Filed: 08/18/24 17:34> Differential Diagnosis Differential diagnosis: Likely fracture of hand and other (Hand sprain, arthralgia) <Larissa Aleman PA-C - Last Filed: 08/18/24 17:34> Imaging Data Radiologist's impression: ITS Impressions Hand X-Ray 08/18/24 15:18 IMPRESSION: No acute osseous abnormality left hand. <Larissa Aleman PA-C - Last Filed: 08/18/24 17:34> Critical Care Time Critical Care Time Critical Care Time: No <Larissa Aleman PA-C - Last Filed: 08/18/24 17:34> Discharge Plan Discharge Clinical Impression: Pain of left thumb <Lupis Humphrey APRN - Last Filed: 08/18/24 15:53> Patient Disposition: Home <Lupis Humphrey APRN - Last Filed: 08/18/24 15:53> Condition: Stable <Lupis Humphrey APRN - Last Filed: 08/18/24 15:53> Instructions: Arthralgia (ED) <Lupis Humphrey APRN - Last Filed: 08/18/24 15:53> Additional Instructions: Return to the ER if you experience fever, redness and swelling of your hand, weakness, numbness, bowel/bladder incontinence, or any other symptoms that are concerning to you Rest, use ice/heat, take Tylenol as needed for pain as well as muscle relaxer (Flexeril) as needed for pain. Prescribed pain medication as needed. Apply Diclofenac gel to the area as needed Follow up with your paint spray tender <Lupis Humphrey APRN - Last Filed: 08/18/24 15:53> Patient Language: German <Lupis Humphrey APRN - Last Filed: 08/18/24 15:53> Prescriptions: New diclofenac sodium [Motrin Arthritis Pain] 1 % gel 2 g topical QID PRN (Reason: pain) Qty: 100 0RF Rx Instructions: apply to single elbow, wrist or hand; for hand includes palm/fingers/back of hand No Action hydrocodone-acetaminophen 10-325 mg tablet 1 tablet PO Q6H PRN Xarelto 20 mg tablet 20 mg PO DAILY Rx Instructions: must administer with evening meal Vyvanse 60 mg capsule 60 mg PO DAILY desvenlafaxine succinate [Pristiq] 100 mg tablet extended release 24 hr 100 mg PO DAILY testosterone enanthate 50 mg/0.5 mL auto-injector 50 mg subcut WEEKLY AMANDA/5HTP/caf/arg/chl/br/hb318 1,400 mg capsule PO B-complex with vitamin C Tablet 1 tablet PO DAILY clonazepam 1 mg tablet 1 mg PO BID Xarelto 20 mg tablet 20 mg PO DAILY Rx Instructions: must administer with evening meal hydrochlorothiazide 25 mg tablet 25 mg PO DAILY lisdexamfetamine [Vyvanse] 60 mg capsule 60 mg PO DAILY lamotrigine 100 mg tablet 100 mg PO DAILY hydrocodone-acetaminophen 10-300 mg tablet 1 tablet PO QHS PRN alprazolam [Xanax] 0.5 mg tablet 0.5 mg PO QHS PRN pantoprazole 20 mg tablet,delayed release (DR/EC) 20 mg PO QAM Wegovy 0.25 mg/0.5 mL pen injector 0.25 mg subcut WEEKLY Rx Instructions: administer weeks 1 through 4 of therapy Nurtec ODT 75 mg tablet,disintegrating See Rx Instructions .ROUTE .COMPLEX Qty: 16 3RF Dose Instruction: TAKE 1 TABLET BY MOUTH ONCE NEEDED FOR MIGRANE HEADACHE MAX 1 DOSE/24 HOURS OR 15/30 DAYS Rx Instructions: TAKE 1 TABLET BY MOUTH ONCE NEEDED FOR MIGRANE HEADACHE MAX 1 DOSE/24 HOURS OR 15/30 DAYS amoxicillin-pot clavulanate 875-125 mg tablet 1 tablet PO Q12H Qty: 20 0RF albuterol sulfate 90 mcg/actuation HFA aerosol inhaler 2 puff inhalation QID PRN (Reason: shortness of breath or wheezing) Qty: 6.7 0RF ondansetron 4 mg tablet,disintegrating 4 mg PO Q8H PRN (Reason: nausea and vomiting) 5 Days Qty: 20 0RF ketorolac 10 mg tablet 10 mg PO Q8H PRN (Reason: pain) 5 Days Qty: 20 0RF Rx Instructions: maximum total duration of 5 days from all oral, intranasal, or parenteral formulations prednisone 50 mg tablet 50 mg PO DAILY 5 Days Qty: 5 0RF acetaminophen 500 mg capsule 1,000 mg PO Q6H PRN (Reason: pain) Qty: 30 0RF oxycodone 5 mg capsule 5 mg PO Q8H PRN (Reason: pain) Qty: 7 0RF Aimovig Autoinjector 140 mg/mL auto-injector 140 mg subcut MONTHLY Qty: 1 5RF <Lupis Humphrey APRN - Last Filed: 08/18/24 15:53> Follow-up/Referrals: Jaya,Isatu Dinero APRN [Primary Care Provider] - <Lupis Humphrey APRN - Last Filed: 08/18/24 15:53>
[2024-08-18] MEDS: HYDROcodone/acetaminophen (*CRX) 5-325 MG TABLET 1 TAB PO (15:56)
--- OUTSIDE RECORDS SUMMARY | 2024-08-18 15:56 | XMS_ITS | Data Portability ---
Author Organization [facility] [employer], Main Office Address [address] [place] [address] Assessment No assessment recorded. Plan of Treatment Reminders Order Date Submit Date Provider Last Modified By Organization Details Last Modified Time Details Appointments None recorded . Lab urinalys is, dipstick 2022 023 [email or web address] [facility], [address] [facility] [address], [place], [address], 3 11:22:15 CBC 2022 023 [facility] (Lab), [address] [place], [address], 3 14:17:43 CMP, serum or plasma 2022 023 [facility] (Lab), [address] [place], [address], 3 14:17:43 PSA, total, serum or plasma 2022 023 [email or web address] [facility] (Lab), [address] [place], [address], 4 12:41:31 testoste matthew, free + total, serum 2022 023 [facility] (Lab), [address] [place], [address], 3 13:23:36 estradio l, serum 2022 023 [facility] (Lab), [address] [facility], [place], [address], 13:23:37 Referral None recorded . Procedures None recorded . Surgeries None recorded . Imaging US, bladder 2022 023 [email or web address] [facility] [place], [address] [place], [place] [address]e [address], [place], [address], 11:25:38 Medication Orders None recorded . Patient TargetsNo targets recorded. Patient InstructionsNo instructions recorded. Reason for Referral None Reported. Results Created Date Observation Date Name Description Value Unit Range Abnormal Flag Note LastModifiedBy Organization Detail LastModifiedTime 03/08/2003/08/2021 urina lysis , dipst ick Leukocytes (reference range: negative sesar/ l) Negati ve Not Available [facility], [address], [address], 03/08/2021 11:19:45 03/08/20 21 03/08/2021 urina lysis , dipst ick Nitrite (reference rage: negative mg/dl) negati ve Not Available [facility], [address], 03/08/2021 11:19:45 03/08/20 21 03/08/2021 urina lysis , dipst ick Urobilinogen (reference range: 0.2-1 mg/dl) 0.2 Not Available [facility], [address], [address], 03/08/2021 11:19:45 03/08/20 21 03/08/2021 urina lysis , dipst ick Protein (reference range: negative mg/dl) Negati ve Not Available [facility] [place] [address], [address], [place], [address], 03/08/2021 11:19:45 03/08/20 21 03/08/2021 urina lysis , dipst ick pH (reference range: 5-7) 6.0 Not Available [address], [address], 03/08/2021 11:19:45 03/08/2003/08/2021 urina lysis , dipst ick Blood (reference range: negative Robin/ l) Small Not Available [address], [address], 03/08/2021 11:19:45 03/08/20 21 03/08/2021 urina lysis , dipst ick Specific [place] (reference range: 1.005-1.030) 1.025 Not Available [address], [address], 03/08/2021 11:19:45 03/08/20 21 03/08/2021 urina lysis , dipst ick Ketone (reference range: negative mg/dl) Negati ve Not Available [address], [address], 03/08/2021 11:19:45 03/08/20 21 03/08/2021 urina lysis , dipst ick Bilirubin (reference range: negative mg/dl) Small Not Available [address], [address], 03/08/2021 11:19:45 03/08/2003/08/2021 urina lysis , dipst ick Glucose (reference range: negative mg/dl) Negati ve Not Available [address], [address], [address], 03/08/2021 11:19:45 03/08/20 21 03/08/2021 urina lysis , dipst ick Appearance Clear Not Available [address], [address], 03/08/2021 11:19:45 03/08/2003/08/2021 urina lysis , dipst ick Color Yellow Not Available [address], [address], 03/08/2021 11:19:45 03/29/20 21 03/29/2021 urina lysis , dipst ick Leukocytes (reference range: negative sesar/ l) Negati ve Not Available [address], [address], 03/29/2021 10:47:02 03/29/20 21 03/29/2021 urina lysis , dipst ick Nitrite (reference rage: negative mg/dl) negati ve Not Available [address], [address], 03/29/2021 10:47:02 03/29/20 21 03/29/2021 urina lysis , dipst ick Urobilinogen (reference range: 0.2-1 mg/dl) 0.2 Not Available [address], [address], 03/29/2021 10:47:02 03/29/20 21 03/29/2021 urina lysis , dipst ick Protein (reference range: negative mg/dl) Negati ve Not Available [address], [address], 03/29/2021 10:47:02 03/29/20 21 03/29/2021 urina lysis , dipst ick pH (reference range: 5-7) 5.5 Not Available [place] [address], [place], [address], 03/29/2021 10:47:02 03/29/2003/29/2021 urina lysis , dipst ick Blood (reference range: negative Robin/ l) Small Not Available [address], [address], 03/29/2021 10:47:02 03/29/20 21 03/29/2021 urina lysis , dipst ick Specific [place] (reference range: 1.005-1.030) 1.020 Not Available [address], [address], 03/29/2021 10:47:02 03/29/20 21 03/29/2021 urina lysis , dipst ick Ketone (reference range: negative mg/dl) Negati ve Not Available [address], [address], 03/29/2021 10:47:02 03/29/20 21 03/29/2021 urina lysis , dipst ick Bilirubin (reference range: negative mg/dl) Small Not Available [facility]_[address], [place] [address], [place], [address], 03/29/2021 10:47:02 03/29/20 21 03/29/2021 urina lysis , dipst ick Glucose (reference range: negative mg/dl) Negati ve Not Available [facility] [address] [address], [place], [address], 03/29/2021 10:47:02 03/29/20 21 03/29/2021 urina lysis , dipst ick Appearance Clear Not Available [facility] _[address] [address], [place], [address], 03/29/2021 10:47:02 11/29/19 23 11/28/2022 urina lysis , dipst ick Leukocytes (reference range: negative sesar/ l) Negati ve Not Available [facility] [address] [facility] [address], [place], [address], 11/28/2022 11:07:19 11/29/19 23 11/28/2022 urina lysis , dipst ick Nitrite (reference rage: negative mg/dl) negati ve Not Available [facility] [address], [place], [address], 11/28/2022 11:07:19 11/29/19 23 11/28/2022 urina lysis , dipst ick Urobilinogen (reference range: 0.2-1 mg/dl) 0.2 Not Available [facility] [address], [place], [address], 11/28/2022 11:07:19 11/29/1911/28/2022 urina lysis , dipst ick Protein (reference range: negative mg/dl) Negati ve Not Available [facility] [address], [place], [address], 11/28/2022 11:07:19 11/29/19 23 11/28/2022 urina lysis , dipst ick pH (reference range: 5-7) 5.5 Not Available s_ gmg [facility] [address], [place], [address], 11/28/2022 11:07:19 11/29/1911/28/2022 urina lysis , dipst ick Blood (reference range: negative Robin/ l) Negati ve Not Available s_g [facility] [address] [place] [address] [address], [place], [address], 11/28/2022 11:07:19 11/29/1911/28/2022 urina lysis , dipst ick Specific [place] (reference range: 1.005-1.030) 1.025 Not Available s _[facility] [address], [place], [address], 11/28/2022 11:07:19 11/29/19 23 11/28/2022 urina lysis , dipst ick Ketone (reference range: negative mg/dl) Negati ve Not Available s_gmg [facility] [address] [place] [address] Ave [address], [place], [address], 11/28/2022 11:07:19 11/29/19 23 11/28/2022 urina lysis , dipst ick Bilirubin (reference range: negative mg/dl) Negati ve Not Available s_[facility] [address] [place] [address] [address], [place], [address], 11/28/2022 11:07:19 11/29/19 23 11/28/2022 urina lysis , dipst ick Glucose (reference range: negative mg/dl) Negati ve Not Available [facility] [place] [address], [place], [address], 11/28/2022 11:07:19 11/29/19 23 11/28/2022 urina lysis , dipst ick Appearance Clear Not Available [facility] [place] [address] [place], [place] [address], [place], [address], 11/28/2022 11:07:19 11/29/19 23 11/28/2022 urina lysis , dipst ick Color Yellow Not Available [facility] [place] [address] [place] [address], [place], [address], 11/28/2022 11:07:19 01/09/20 21 01/03/2021 sleep study , basel ine diagn ostic polys omnog leigh* No observ ation record ed. [id number] Not Available 06/19/2022 19:12:38 03/08/20 21 03/08/2021 US, bladd er No observ ation record ed. [id number] [facility] [place] [address] [facility], [address], [place], [address], 06/19/2022 19:12:38 11/29/19 23 11/28/2022 US, bladd er No observ ation record ed. [email or web address] [facility] [address] [place] [address], [place], [address], 11/29/2022 14:57:39 Result Notes None recorded. Problems Name Problem SNOMED Code Status Onset Date Resolution Date Notes Provider Name and Address Organization Details Recorded Time Venous thrombosis 477737830 Active Not Available [employer] 3 19:12:04 Testicular hypofuncti on 968998050 Active Not Available [facility] 3 19:12:04 Chest pain 34340438 Active Not Available [facility] 3 19:12:04 Current tear of medial cartilage AND/OR meniscus of knee Active Not Available [facility] 3 19:12:04 Hypertensi ve disorder 31598696 Completed Not Available [facility] 3 19:12:04 Osteoarthr itis 985637112 Active Not Available [facility] 3 19:12:04 Viral hepatitis C 29656600 Active Not Available [facility] 3 19:12:04 Hyperlipid emia 91054049 Active Not Available [facility] 3 19:12:04 Essential hypertensi on 43909057 Active Not Available [facility] 3 19:12:04 Sexually transmitte d infectious disease 7374383 Active Not Available [facility] 3 19:12:04 Pain in limb 93435417 Active Not Available [facility] 3 19:12:04 Male hypogonadi sm 66138133 Active 2022 DILSHAD Chandler - [place] [employer] [facility] 3 11:19:07 Notes:Medical History: Subst [...] 01/03/2021 sleep study, baseline diagnostic polysomnogram* completed [id number] Information not available 06/19/2022 19:12:38 03/08/2021 US, bladder completed [id number] [facility] [address], [address], [place], [address], 06/19/2022 19:12:38 11/28/2022 US, bladder completed [email or web address] [facility] [place] [address], [place], [address], 11/29/2022 14:57:39 Procedure Notes None recorded. Medical [...] Not Available Not Available Not Available Fluvirin 2354-0578 45 mcg (15 mcg x 3)/0.5 mL [...] Not Available Not Available Not Available Fluvirin 8101-0667 45 mcg (15 mcg x 3)/0.5 mL [...] 4 75 /min 18 /min 98.6 [degF] 673836. 66 g 122 mm[Hg] 92 mm[Hg] Not Available [facility] 3 19:11:59 Date Recorded Body mass index (BMI) Body height Oxygen saturation Oxygen saturation in Arterial blood by Pulse oximetry Body temperature Body weight Systolic blood pressure Diastolic blood pressure Provider Name and Address Organization Details Last Updated DateTime 1 33.5 kg/m2 175.26 cm 97 % 97 % 98.8 [degF] 018817. 47 g 153 mm[Hg] 89 mm[Hg] Not Available [facility] 3 19:11:59 Date Recorded Body mass index (BMI) Body height Body weight Provider Name and Address Organization Details Last Updated DateTime 03/29/2021 33.5 kg/m2 175.26 cm 854025.47 g Not Available [facility] 06/19/2022 19:12:00 Date Recorded Body weight Body temperature Oxygen saturation Oxygen saturation in Arterial blood by Pulse oximetry Heart rate Systolic blood pressure Diastolic blood pressure Provider Name and Address Organization Details Last Updated DateTime 3 773599. 09 g 97.9 [degF] 98 % 98 % 83 /min 139 mm[Hg] 93 mm[Hg] NATY Rivero [place] [facility] [place] [employer] 3 11:06:54 Date Recorded Body mass index (BMI) Body height Provider Name and Address Organization Details Last Updated DateTime 11/28/2022 36.9 kg/m2 175.26 cm Nga Jones MA [facility] [place] [facility] 11/28/2022 11:05:40 Social History None recorded. Functional Status None recorded. Mental Status None recorded. Family History Nothing Reported. Medical History No medical history recorded. Immunizations Vaccine Type Date Status Note Provider Nam e and Address Organization Details Recorded Time influenza, unspecified formulation 3 completed Not Available [facility] 06/19/2022 19:12:36 tetanus toxoid, unspecified formulation 1 completed Not Available [facility] 06/19/2022 19:12:36 Influenza, high-dose, trivalent, PF 3 completed Not Available [facility] 06/19/2022 19:12:36 Influenza, high-dose, trivalent, PF 3 completed Not Available [facility] 06/19/2022 19:12:36 Past Encounters Encounter ID Performer Location Encounter Start Date Encounter Closed Date Diagnosis/Indication Diagnosis SNOMED-CT Code Diagnosis ICD10 Code Diagnosis Note [id number] Mathew Rich MD [facility] [address] [address] 11/30/2020 00:00:00 11/30/2020 12:27:55 [id number] MD SLOAN [place]_[facility]G [facility] [address] [place] [id number] 03/08/2021 00:00:00 03/08/2021 12:15:21 [id number] MD SLOAN [place]_GMClarissa [facility] [address] [place] [id number] 03/29/2021 00:00:00 03/29/2021 11:26:17 [id number] MD SLOAN [place]_SPENCER [facility] [address] [place] [id number] 11/28/2022 10:53:19 11/28/2022 11:25:37 Male hypogonadism 53368060 E29.1 check labs. discussed need for TRT. follow up in 2 week.s Health Concerns Section Related Observation LastModified by Organization Detai ls LastModified Time None Recorded Concern Status LastModified by Organization Details LastModified Time None Recorded Advance Directives Directive None Recorded Payers Encounter Date Sequence Insurance Name Policy Number Policy Kaba Covered Member ID Kaba Member ID Guarantor Name 11/28/2022 1 [facility] [employer] [facility] (PPO) [id number] Homero Arechiga [id number] Homero Arechiga Notes Date Note Type Note [...] in the urine. Not Available [place] [facility] [employer] 03/08/2021 12:15:21 11/28/2022 text/html 47 yo male with hypogonadism. He went off Testosterone to have a baby and was put on Clomid. They were unsuccessful. He had no sex drive so they did not have sex. He as been off Clomid for 6 weeks. He is on Cialis. Primo Jerome MD [address] [place] [address], [place], [address], [place] [facility] [place] [id number] 11/28/2022 11:32:20
--- OUTSIDE RECORDS SUMMARY | 2024-08-18 15:56 | XMS_ITS | Encounter Summary ---
Author Organization [facility] Address [address] [place] [address] Care Team Providers Care Brush Holder Assembler Name Role Phone Nga Hernandez MD Primary Care Provider Reason for Visit * Reason Onset Date Comments Medication Review 08/18/2024 Encounter Details Date Type Department Care Team (Late st Contact Info) Description 08/18/2024 Telephone [facility] [employer] [facility] [address] [place] [address] Nga Hernandez MD [address] [place] [address] Medication Review Social History Tobacco Use Types Packs/Day Years [...] PM CDT documented as of this encounter Miscellaneous Notes * Telephone Encounter - Kirsten Buitrago RN - 08/18/2024 2:09 PM CDT Triamcinolone cream returned to stock. Filled on 07/29/2024 and patient did not olive picker. documented in this encounter Plan of Treatment Upcoming Encounters Date Type Department Care Team (Late st Contact Info) Description 10/11/2024 1:20 PM CDT Office Visit [facility] [employer] [facility] [address] [place] [address] 11/22/2024 2:30 PM CDT Office Visit [facility] [employer] [facility] [address] [place] [address] [place], ANP [address] [facility] Sarah Hussain [facility] [address] [place] [address] documented as of this encounter Visit Diagnoses Not on filedocumented in this encounter Additional Health Concerns Assessment Noted Time PHQ-9 Depression Total Score: 2 12/11/19 24 11:00 AM CDT documented as of this encounter Care Teams Brush Holder Assembler Relationship Specialty Start Date End Date Nga Hernandez MD [address] [place] [address] PCP - General Internal Medicine 09/16/23 documented as of this encounter
--- OUTSIDE RECORDS SUMMARY | 2024-08-18 15:56 | XMS_ITS | Clinical Summary ---
Author Organization [facility] Address [address] [place] [address] Phone Care Team Providers Care Bread Molder Name Role Phone Tello [place] MD Primary [...] Description 08/10/2024 3:45 PM CDT Office Visit [facility] [address] [place] [address] [phone] Era [place], PROCESS DEVELOPMENT ENGINEER, FINISHED GOODS PLANNER Attention deficit hyperactivity disorder, combined type (Primary Dx); Generalized anxiety disorder; Mixed bipolar I disorder (HCC); Attention deficit hyperactivity disorder (ADHD), predominantly inattentive type 08/10/2024 Travel 07/26/2024 Telephone [facility] [address] [place] [address] [phone] Era [place], PROCESS DEVELOPMENT ENGINEER, FINISHED GOODS PLANNER from Last 3 Months Family History Medical [...] or relatives? Once a week 08/10/2024 Attends [employer] Not on file 08/10 Active Member [...] Total Score - Questions 1-9 10 01/19 [facility] - Occupational Stress Questionnaire Answer Date [...] any time in the past 12 m [facility], were you homeless or living in a long term (including now)? No 08/10/2024 Sexually Active Control [...] Description 11/09/2024 4:15 PM CDT Office Visit [facility] [address] [place] [phone] Era [place], PROCESS DEVELOPMENT ENGINEER, FINISHED GOODS PLANNER [address] [place] [address] Health Maintenance Due Date Last Done Comments [...] complete this topic Insurance [employer] Care Teams Bread Molder Relationship Specialty Start Date End Date Tello [place] MD [address] [place] [address] PCP - General Internal Medicine 01/30/24
--- OUTSIDE RECORDS SUMMARY | 2024-08-18 15:56 | XMS_ITS | CONTINUITY OF CARE DOCUMENT ---
Author Name ren mcclure Address Unknown Organization [facility] Address [address] [facility] [address] [place] [address] Phone [phone] Care Team Providers Care Art Glass Designer Name Role Phone Adan Peñaloza MD Unavailable DINAH FRITZ MD Unavailable WOJCIECH FLORES MD Unavailable INSURANCE PROVIDERS Payer name Policy type / Coverage type [place] red green party ID [facility] [employer] [id number]
--- OUTSIDE RECORDS SUMMARY | 2024-08-18 15:56 | XMS_ITS | Continuity of Care Document ---
Author Organization [facility] Address [address] [place] [address] Phone Care Team Providers Care Food Service Associate Name Role Phone Talon Ambrose Unavailable Unavailable Advance Directives Directive Yes / No Effective Date File Name No Information Encounters Encounter Description Practice Location Reason(s) For Visit Diagnoses Date Provider Providers Copied on Encounter [facility], [address] [place] [address], Critical access hospital, tel:[phone] *[facility] No Information Arnol Hanley. [address] [place] [address], Critical access hospital, [place]. tel:[phone] Family History Family Member Type Diagnosis Age [...]
--- OUTSIDE RECORDS SUMMARY | 2024-08-18 15:56 | XMS_ITS | Clinical Summary ---
Author Organization [facility] Address [address] [place] [address] Care Team Providers Care Atomic Spectroscopist Name Role Phone Unknown, Notinfile Unavailable Unavailable Nga Hernandez MD Primary Care Provider [phone] Allergies No known active allergies Medications metoclopramide [...] tablet TAKE 1 TABLET BY MOUTH DAILY [id number], THEN INCREASE TO 2 TABLETS DAILY 2 [...] on file Legal Sex Male 11:35 PM GYNECOLOGIST Gender Identity Not on file Sexual Orientation Not on file Obstetrics History Last Filed Vital Signs Vital Sign Reading Time Taken Comments Blood Pressure 103/63 06/27/2018 12:30 AM GYNECOLOGIST Pulse 62 06/27/2018 12:30 AM GYNECOLOGIST Temperature 36.6 C (97.9 F) 06/26/2018 8:19 PM GYNECOLOGIST Respiratory Rate 16 06/27/2018 12:30 AM GYNECOLOGIST Oxygen Saturation 100% 06/27/2018 12:30 AM GYNECOLOGIST Inhaled Oxygen Concentration - - Weight 90.7 kg (200 lb) 06/26/2018 8:19 PM GYNECOLOGIST Height 175.3 cm (5' 9 ) 06/26/2018 8:19 PM GYNECOLOGIST Body Mass Index 29.53 06/26/2018 8:19 PM GYNECOLOGIST Plan of Treatment Health Maintenance Due Date [...] 04/21/2008 Hepatitis C Screening Completed 02/01/2022 Insurance [facility] CHOICE PLUS CIGNA ALLEGIANCE CIGNA ALLEGIANCE Care Teams Atomic Spectroscopist Relationship Specialty [place] [address] [place] [address] PCP - General Internal Medicine 12/16/23 Unknown, Notinfile 11/26/21
--- OUTSIDE RECORDS SUMMARY | 2024-08-18 15:56 | XMS_ITS | Clinical Summary ---
Author Organization [facility] Address [address] [facility] [place] [address] Care Team Providers Care Program Architect Name Role Phone Nga Hernandez MD Primary Care Provider [phone] Allergies Active Allergy Reactions Criticality Noted Date [...] 024 Active fluticasone propionate (FLONASE) 50 mcg/spray [place], Suspension nasal inhalerIndicat ions:Acute non-recurrent maxillary sinusitis [...] Encounters Date Type Department Care Team Description 08/18/2024 Telephone [facility] [place] [address] [place] [address] Nga Hernandez MD Medication Review 08/13/2024 Telephone [facility] [place] [address] [place] [address] Nga Hernandez MD Concerns 08/03/2024 External Device Data STL ABSTRACTION Provider, Abstract 07/29/2024 9:30 AM CDT Office Visit [facility] [place] [address] [place] [address] Nga Hernandez MD Itching (Primary Dx); Bug bite, initial encounter; Thumb pain, left 07/22/2024 2:30 PM CDT Office Visit [facility] [place] [address] [place] [address] [place] ANP Recurrent acute deep vein [...] STL ABSTRACTION Provider, Abstract 05/25/2024 10:30 AM WAITER/WAITRESS HEAD Office Visit [facility] at [facility] [place] [address] [place] [address] Nga Hernandez MD Hypertension, unspecified type (Primary [...] Description 10/11/2024 1:20 PM CDT Office Visit [facility] at [facility] [place] [address] [place] [address] 11/22/2024 2:30 PM CDT Office Visit [facility] at [facility] [place] [address] [place] [address] [place], ANP [address] [facility] Sarah [place] [address] [address] Health Maintenance Due Date Last Done [...] [employer] Member Subscriber Plan / Payer ( fective 2021-Present) Name:Homero Arechiga Relation to Subscriber:Self Name:Homero Arechiga Subscriber ID:Not on file Payer ID:Not on file Group ID:[id number] Type:RX Commercial Address: [place], [place] ALLEGIANCE OPEN ACCESS ALLEGIANCE OPEN ACCESS Care Teams Program Architect Relationship Specialty Start Date End Date Nga Hernandez MD [address] [place] [address] PCP - General Internal Medicine 09/16/23
--- OUTSIDE RECORDS SUMMARY | 2024-08-18 15:57 | XMS_ITS | Data Portability ---
Author Organization [place] [facility] autoContract - [facility] [place] Address [address] [facility] [address] [place] [address] Assessment Encounter Date Assessment Date Assessment LastModified [...] By Organization Details Last Modified Time 09/11/2021 [id number] epilepsy: care instructions [email or web address] Not available 09/11/2021 [...] Pt also agrees that me, and the [facility] Team are my treating physicians and that [...] and management plan. I was available via text/email/[email or web address] during the patient's evaluation. I reviewed the patient's pertinent studies (labs/x-rays/EKG/e tc.). Not available 09/13/2021 01:32:58 09/14/2021 [id number] epilepsy: care instructions [email or web address] Not available 09/14/2021 [...] Pt also agrees that me, and the [facility] Team are my treating physicians and that [...] and management plan. I was available via text/email/[email or web address] during the patient's evaluation. I reviewed the patient's pertinent studies (labs/x-rays/EKG/e tc.). Not available 09/18/2021 05:31:44 06/11/2022 [id number] I have discussed the risks and benefits [...] also agrees that me, and the [facility] Care Team are my treating physicians [...] Available Not Available No t Available BD Luer-Vkiki Syringe 3 mL 25 x 1 1/2 [...] SNOMED-CT Code Diagnosis ICD10 Code Diagnosis Note [id number] Manoj Morse PA-C [facility] [address] [place] [address] 09/11/2021 15:21:21 09/11/2021 15:45:14 Chronic hepatitis C 959680908 B18.2 Seizure disorder 4822301 02 G40.909 [id number] Sam Cheema NP [facility] [address],[address] [place] [address] 09/14/2021 10:55:45 09/14/2021 13:37:27 Chronic hepatitis C 534685075 B18.2 Seizure disorder 8275487 02 G40.909 [id number] Tray Isaacs MD [facility] [address] [place] [address] 06/11/2022 14:07:25 10/08/2022 19:08:18 Seizure disorder 727636180 G40.909 Chronic hepatitis C 1283 93285 B18.2 Health Concerns Section Related Observation LastModified by Organization Detai ls LastModified Time None Recorded Concern Status LastModified by Organization Details LastModified Time None Recorded Advance Directives Directive None Recorded Payers Encounter Date Sequence Insurance Name Policy Number Policy Kaba Covered Member ID Kaba Member ID Guarantor Name 09/11/[address] [facility] [id number] Homero Arechiga [id number] Homero Arechiga 09/14/[address] [facility] [id number] Homero Arechiga [id number] Homero Arechiga 06/11/[address] [facility] Rosario Arechiga [id number] Homero Arechiga Notes Date Note Type Note [...] C AND SEIZURES Tray Isaacs MD [address], [place], [address], [facility] - [facility] 09/13/2021 01:33:03 09/14/2021 text/html [...] Isaacs MD [address], [address], [place], [address], [facility] - [facility] 09/18/2021 05:31:51 [...] Isaacs MD [address], [address], [place], [address], [facility] - [facility] 10/08/2022 19:08:17
--- OUTSIDE RECORDS SUMMARY | 2024-08-18 15:57 | XMS_ITS | Referral Summary ---
Author Organization [facility] Address [address] [place] [address] Care Team Providers Care Windmill Mechanic Name Role Phone Unknown, Notinfile Unavailable Unavailable Nga Hernandez MD Primary Care Provider [phone] Allergies No known active allergies Medications metoclopramide [...] tablet TAKE 1 TABLET BY MOUTH DAILY [id number], THEN INCREASE TO 2 TABLETS DAILY 2 [...] on file Legal Sex Male 11:35 PM DIRECTOR TRANSLATIONAL Gender Identity Not on file Sexual Orientation Not on file Last Filed Vital Signs Vital Sign Reading Time Taken Comments Blood Pressure 103/63 06/27/2018 12:30 AM DIRECTOR TRANSLATIONAL Pulse 62 06/27/2018 12:30 AM DIRECTOR TRANSLATIONAL Temperature 36.6 C (97.9 F) 06/26/2018 8:19 PM DIRECTOR TRANSLATIONAL Respiratory Rate 16 06/27/2018 12:30 AM DIRECTOR TRANSLATIONAL Oxygen Saturation 100% 06/27/2018 12:30 AM DIRECTOR TRANSLATIONAL Inhaled Oxygen Concentration - - Weight 90.7 kg (200 lb) 06/26/2018 8:19 PM DIRECTOR TRANSLATIONAL Height 175.3 cm (5' 9 ) 06/26/2018 8:19 PM DIRECTOR TRANSLATIONAL Body Mass Index 29.53 06/26/2018 8:19 PM DIRECTOR TRANSLATIONAL Plan of Treatment Not on file Insurance [facility] [place] [address] CIGNA ALLEGIANCE [facility] H[facility]PPO Address: [facility] [id number] [place] [address] Care Teams Windmill Mechanic Relationship Specialty [place] [address] [place] [address] PCP - General Internal Medicine 12/16/23 Unknown, Notinfile 11/26/21
[2024-08-18 16:55] VITALS: BP 116/75; O2SAT 98
[2024-08-18 17:00] VITALS: BP 122/80; O2SAT 96
--- OUTSIDE RECORDS SUMMARY | 2024-08-18 17:46 | XMS_ITS | Clinical Summary ---
Author Organization [facility] Address [address] [place] [address] Care Team Providers Care Track Laborer Name Role Phone Unknown, Notinfile Unavailable Unavailable Nga Hernandez MD Primary Care Provider [phone] Allergies No known active allergies Medications metoclopramide [...] tablet TAKE 1 TABLET BY MOUTH DAILY [id number], THEN INCREASE TO 2 TABLETS DAILY 2 [...] on file Legal Sex Male 11:35 PM MANAGER TALENT ACQUISITION Gender Identity Not on file Sexual Orientation Not on file Obstetrics History Last Filed Vital Signs Vital Sign Reading Time Taken Comments Blood Pressure 103/63 06/27/2018 12:30 AM MANAGER TALENT ACQUISITION Pulse 62 06/27/2018 12:30 AM MANAGER TALENT ACQUISITION Temperature 36.6 C (97.9 F) 06/26/2018 8:19 PM MANAGER TALENT ACQUISITION Respiratory Rate 16 06/27/2018 12:30 AM MANAGER TALENT ACQUISITION Oxygen Saturation 100% 06/27/2018 12:30 AM MANAGER TALENT ACQUISITION Inhaled Oxygen Concentration - - Weight 90.7 kg (200 lb) 06/26/2018 8:19 PM MANAGER TALENT ACQUISITION Height 175.3 cm (5' 9 ) 06/26/2018 8:19 PM MANAGER TALENT ACQUISITION Body Mass Index 29.53 06/26/2018 8:19 PM MANAGER TALENT ACQUISITION Plan of Treatment Health Maintenance Due Date [...] 04/21/2008 Hepatitis C Screening Completed 02/01/2022 Insurance [facility] CHOICE PLUS CIGNA ALLEGIANCE CIGNA ALLEGIANCE Care Teams Track Laborer Relationship Specialty [place] [address] [place] [address] PCP - General Internal Medicine 12/16/23 Unknown, Notinfile 11/26/21
--- OUTSIDE RECORDS SUMMARY | 2024-08-18 17:46 | XMS_ITS | Continuity of Care Document ---
Author Organization [facility] Address [address] [place] [address] Phone Care Team Providers Care Petrophysical Engineer Name Role Phone Talon Ambrose Unavailable Unavailable Advance Directives Directive Yes / No Effective Date File Name No Information Encounters Encounter Description Practice Location Reason(s) For Visit Diagnoses Date Provider Providers Copied on Encounter [facility], [address] [place] [address], [facility], tel:[phone] *[facility] No Information Arnol Hanley. [address] [place] [address], [facility], [place]. tel:[phone] Family History Family Member Type Diagnosis Age [...]
--- OUTSIDE RECORDS SUMMARY | 2024-08-18 17:46 | XMS_ITS | Clinical Summary ---
Author Organization [facility] Address [address] [place] [address] Phone Care Team Providers Care Manager It Security Name Role Phone Tello Denton MD Primary [...] Description 08/10/2024 3:45 PM CDT Office Visit [facility] [address] [place] [address] [phone] Era Todd, GEOTHERMAL ELECTRICAL ENGINEER, TURF MANAGER Attention deficit hyperactivity disorder, combined type (Primary Dx); Generalized anxiety disorder; Mixed bipolar I disorder (HCC); Attention deficit hyperactivity disorder (ADHD), predominantly inattentive type 08/10/2024 Travel 07/26/2024 Telephone [facility] [address] [place] [address] [phone] Era Todd, GEOTHERMAL ELECTRICAL ENGINEER, TURF MANAGER from Last 3 Months Family History Medical [...] or relatives? Once a week 08/10/2024 Attends [employer] Not on file 08/10 Active Member [...] Total Score - Questions 1-9 10 01/19 [facility] Occupat ional [facility] - Occupational Stress Questionnaire Answer Date [...] any time in the past 12 m [facility], were you homeless or living in a detention (including now)? No 08/10/2024 Sexually Active Control [...] Description 11/09/2024 4:15 PM CDT Office Visit [facility] [address] [place] [phone] Era Todd, GEOTHERMAL ELECTRICAL ENGINEER, TURF MANAGER [address] [place] [address] Health Maintenance Due Date Last Done Comments [...] complete this topic Insurance [employer]IG[employer] Care Teams Manager It Security Relationship Specialty Start Date End Date Tello Denton MD [address] [place] [address] PCP - General Internal Medicine 01/30/24
--- OUTSIDE RECORDS SUMMARY | 2024-08-18 17:46 | XMS_ITS | CONTINUITY OF CARE DOCUMENT ---
Author Name ren mcclure Address Unknown Organization [facility] Address [address] [place] [address] Phone [phone] Care Team Providers Care Protection Manager Name Role Phone Adan Peñaloza MD Unavailable DINAH FRITZ MD Unavailable [phone] WOJCIECH FLORES MD Unavailable [phone] INSURANCE PROVIDERS Payer name Policy type / Coverage type [place] red libertarian ID [facility] Connect[employer] [id number]
--- OUTSIDE RECORDS SUMMARY | 2024-08-18 17:46 | XMS_ITS | Encounter Summary ---
Author Organization [facility] Address [address] [place] [address] Care Team Providers Care Ironworker Foreman Name Role Phone Nga Hernandez MD Primary Care Provider [phone] Reason for Visit * Reason Onset Date Comments Medication Review 08/18/2024 Encounter Details Date Type Department Care Team (Late st Contact Info) Description 08/18/2024 Telephone [facility] [place] [address] [place] [address] Nga Hernandez MD [address] [place] [address] Medication Review Social History Tobacco [...] Filled on 07/29/2024 and patient did not oyster picker. documented in this encounter Plan of Treatment Upcoming Encounters Date Type Department Care Team (Late st Contact Info) Description 10/11/2024 1:20 PM CDT Office Visit [facility] [place] [address] [place] [address] 11/22/2024 2:30 PM CDT Office Visit [facility] [place] [address] [place] [address] [place], ANP [address] [facility] Sarah Hussain [facility] [address] [place] [address] documented as of this encounter Visit Diagnoses Not on filedocumented in this encounter Additional Health Concerns Assessment Noted Time PHQ-9 Depression Total Score: 2 12/11/19 24 11:00 AM CDT documented as of this encounter Care Teams Ironworker Foreman Relationship Specialty Start Date End Date Nga Hernandez MD [address] [place] [address] PCP - General Internal Medicine 09/16/23 documented as of this encounter
--- OUTSIDE RECORDS SUMMARY | 2024-08-18 17:46 | XMS_ITS | Referral Summary ---
Author Organization [facility] Address [address] [place] [address] Care Team Providers Care Glass Etcher Helper Name Role Phone Unknown, Notinfile Unavailable Unavailable Nga Hernandez MD Primary Care Provider [phone] Allergies No known active allergies Medications metoclopramide [...] tablet TAKE 1 TABLET BY MOUTH DAILY [id number], THEN INCREASE TO 2 TABLETS DAILY 2 [...] on file Legal Sex Male 11:35 PM APPLIANCE PAINTER AND REFINISHER Gender Identity Not on file Sexual Orientation Not on file Last Filed Vital Signs Vital Sign Reading Time Taken Comments Blood Pressure 103/63 06/27/2018 12:30 AM APPLIANCE PAINTER AND REFINISHER Pulse 62 06/27/2018 12:30 AM APPLIANCE PAINTER AND REFINISHER Temperature 36.6 C (97.9 F) 06/26/2018 8:19 PM APPLIANCE PAINTER AND REFINISHER Respiratory Rate 16 06/27/2018 12:30 AM APPLIANCE PAINTER AND REFINISHER Oxygen Saturation 100% 06/27/2018 12:30 AM APPLIANCE PAINTER AND REFINISHER Inhaled Oxygen Concentration - - Weight 90.7 kg (200 lb) 06/26/2018 8:19 PM APPLIANCE PAINTER AND REFINISHER Height 175.3 cm (5' 9 ) 06/26/2018 8:19 PM APPLIANCE PAINTER AND REFINISHER Body Mass Index 29.53 06/26/2018 8:19 PM APPLIANCE PAINTER AND REFINISHER Plan of Treatment Not on file Insurance [facility] UHC CHOICE PLUS CIGNA ALLEGIANCE CIGNA ALLEGIANCE [facility] Address: [facility] [id number] [place] [address] Care Teams Glass Etcher Helper Relationship Specialty [place] [address] [place] [address] PCP - General Internal Medicine 12/16/23 Unknown, Notinfile 11/26/21
--- OUTSIDE RECORDS SUMMARY | 2024-08-18 17:46 | XMS_ITS | Clinical Summary ---
Author Organization [facility] Address [address] [facility] [address] [place] [address] Care Team Providers Care Steamblaster Name Role Phone Nga Hernandez MD Primary Care Provider [phone] Allergies Active Allergy Reactions Criticality Noted Date [...] 024 Active fluticasone propionate (FLONASE) 50 mcg/spray [place], Suspension nasal inhalerIndicat ions:Acute non-recurrent maxillary sinusitis [...] Type Department Care Team Description 08/18/2024 Telephone [facility] [place] [address] [place] [address] Nga Hernandez MD Medication Review 08/13/2024 Telephone [facility] [place] [address] [place] [address] Nga Hernandez MD Concerns 08/03/2024 External Device Data STL ABSTRACTION Provider, Abstract 07/29/2024 9:30 AM CDT Office Visit [facility] [place] [address] [place] [address] Nga Hernandez MD Itching (Primary Dx); Bug bite, initial encounter; Thumb pain, left 07/22/2024 2:30 PM CDT Office Visit [facility] [place] [address] [place] [address] Isatu [place] ANP Recurrent acute deep vein [...] STL ABSTRACTION Provider, Abstract 05/25/2024 10:30 AM WASHER ASSEMBLER Office Visit [facility] [place] [address] [place] [address] Nga Hernandez MD Hypertension, unspecified type (Primary [...] Description 10/11/2024 1:20 PM CDT Office Visit [facility] [place] [address] [place] [address] 11/22/2024 2:30 PM CDT Office Visit [facility] [place] [address] [place] [address] [place], ANP [address] [facility] Sarah [place] [address] [address] Health Maintenance Due Date Last [...] on file Group ID:[id number] Type:RX Commercial Address: [place] ALLEGIANCE OPEN ACCESS ALLEGIANCE OPEN ACCESS Care Teams Steamblaster Relationship Specialty Start Date End Date Nga Hernandez MD [address] [place] [address] PCP - General Internal Medicine 09/16/23
== END 2024-08-18 17:45 | disposition home or self-care (01) ==
LOC: ANHED 17:44
PROVIDERS: Emergency Provider Physician Assistant; PCP Nurse Practitioner Adult Health
DX: S69.92XA Unspecified injury of left wrist, hand and finger(s), initial encounter (principal); Z86.19 Personal history of other infectious and parasitic diseases; Z87.891 Personal history of nicotine dependence; W20.8XXA Other cause of strike by thrown, projected or falling object, initial encounter
CPT/HCPCS: 73130; 99283; A9270